=== PATIENT | male | born 1950 | race Caucasian/White ===

== ENCOUNTER 2016-08-03 19:32 | Inpatient (IN) | payer MEDICARE, OTHER ==
--- NOTE | 2016-08-03 19:56 | ED Physician Chart ---
Chief Complaint/HPI - Patient Information Date Seen:: 08/03/16 Time Seen:: 19:35 Chief Complaint:: agitation History of Present Illness:: 66-year-old male with acute, worsening, constant, moderate to severe, agitation 2 days. Has associated increased aggressive behavior towards staff and other patients. History of dementia limits history of present illness History provided by EMS and EMS run sheet Allergies:: Allergies Allergy/AdvReac Type Severity Reaction Status Date / Time MDX No Known Allergies - Nka Allergy Verified 01/01/14 12:43 [No Known Allergies - Nka] Historian:: EMS Review:: Nurse's Note Reviewed, EMS run form Reviewed, Transfer documents Reviewed Review of Systems - Review of Systems Other: Complete system review otherwise unremarkable except as noted in HPI. Past Medical History - Past Medical History Past Medical History: HTN, Asthma/COPD, PUD/GERD, Dementia Family History: None Social History: Non Smoker, No Alcohol, No Drug Use, Care Facility Psychiatricy History: Schizophrenia Medication: Reviewed Family Medical History - Family Member no family member as per patient History Unknown: Yes Ethnicity: Living Status: Unknown Hx Family Cancer: (unknown) Hx Family Coronary Artery Disease: (unknown) Hx Family Congestive Heart Failure: (unknown) Hx Family Hypertension: (unknown) Hx Family Stroke: (unknown) Hx Family Diabetes: (unknown) Hx Family Seizures: (unknown) Hx Family Dementia: (unknown) Hx Family AIDS: (unknown) Hx Family HIV: No Hx Family COPD: (unknown) Hx Family Hepatitis: (unknown) Hx Family Psychiatric Problems: (unknown) Hx Family Tuberculosis: (unknown) Physical Exam - Physical Examination Other:: INITIAL VITAL SIGNS: Reviewed by me GENERAL: Alert and interactive but argumentative and demented. No acute distress HEAD: Head is normocephalic and atraumatic EYES: EOMI. . No scleral icterus. No conjunctival injection ENT: Moist mucous membranes. NECK: Supple. No masses. Full range of motion RESPIRATORY: No tachypnea. Clear breath sounds bilaterally. No wheezing, rales, or rhonchi CV: Regular rate and rhythm. No murmurs, rubs, or gallops ABDOMEN: Soft, non-distended, non-tender. No guarding. No rebound. No masses. EXTREMITIES: No deformity. No cyanosis. No edema. SKIN: Warm and dry. No obvious rashes. NEUROLOGIC: Alert and oriented. Face is symmetric. Speech is normal. Moves all extremities equally. Motor and sensory distally intact. Labs/Radiology/EKG Results - Lab Results Results: Lab Results 08/03/16 08/03/16 Range/Units 20:34 20:34 WBC 6.9 D (4.8-10.8) Th/cmm RBC 4.53 (3.80-5.80) Mil/cmm Hgb 13.9 (12.6-17.4) gm/dL Hct 40.9 D (39.0-49.0) % MCV 90.2 (80-99) fl MCH 30.7 (27.0-31.0) pg MCHC Differential 34.1 (28.0-36.0) pg RDW 12.9 (11.5-20.0) % Plt Count 239 (150-400) Th/cmm MPV 6.8 fl Neutrophils % 61.6 (40.0-80.0) % Lymphocytes % 29.5 (20.0-50.0) % Monocytes % 6.6 (2.0-10.0) % Eosinophils % 1.5 (0.0-5.0) % Basophils % 0.8 (0.0-2.0) % PT 10.4 (9.5-11.5) SECONDS INR 1.00 (0.5-1.4) - EKG Interpretations Comments:: 12-lead EKG Interpretation by Mercy Corona MD: Normal Sinus Rhythm with ventricular rate of 85 beats per minute Normal axis Normal intervals No acute ST or T wave changes. No obvious STEMI ED Septic Shock - . Is Septic Shock (SBP<90, OR Lactate>4 mmol\L) present?: No Reassessment (Disposition) - Reassessment Reassessment:: Patient does have UTI. We have given oral Cipro 500 mg here in the ER. He can continue oral medications for the UTI was admitted to the geriatric psych unit. Patient medically cleared for admission to the geriatric psych unit Reassessment Condition:: Unchanged - Diagnosis Diagnosis:: Psychosis, NOS UTI, acute, without hematuria Hypertension Dementia - Patient Disposition Discharge/Transfer:: Acute Care w/in this hosp Admitted to:: [facility] Admitting Medical Physician:: Ej Curran Admitting Psych Physician:: Mary Diaz Time:: 21:06 Condition at Disposition:: Stable
[2016-08-03] MEDS ORDERED: Haloperidol Lactate 5 mg/mL 1mL Vial IM STA (19:57)
[2016-08-03] MEDS ORDERED: Haloperidol Lactate 5 mg/mL 1mL Vial ONE (19:58)
[2016-08-03 20:36] VITALS: BP 153/78
[2016-08-03 20:46] LABS: % BASOPHILS 0.8 % (0.0-2.0); % EOSINOPHILS 1.5 % (0.0-5.0); % LYMPHOCYTES 29.5 % (20.0-50.0); % MONOCYTES 6.6 % (2.0-10.0); % NEUTROPHILS 61.6 % (40.0-80.0); HEMOGLOBIN 13.9 gm/dL (12.6-17.4); MEAN CELL VOLUME 90.2 fl (80-99); MEAN CORPUSCULAR HEMOGLOBIN 30.7 pg (27.0-31.0); MEAN CORPUSCULAR HGB CONC 34.1 pg (28.0-36.0); MEAN PLATELET VOLUME 6.8 fl; NEUTROPHILE ABSOLUTE 4.2 Th/cmm (1.8-8.0); PLATELET COUNT 239 Th/cmm (150-400); RED BLOOD COUNT 4.53 Mil/cmm (3.80-5.80); RED CELL DISTRIBUTION WIDTH 12.9 % (11.5-20.0)
[2016-08-03 20:50] LABS: HEMATOCRIT 40.9 % (39.0-49.0); WHITE BLOOD COUNT 6.9 Th/cmm (4.8-10.8)
[2016-08-03 20:58] LABS: PROTHROMBIN TIME (TEST) 10.4 SECONDS (9.5-11.5)
[2016-08-03 21:02] LABS: ALB/GLOB RATIO 1.2 (1.0-1.8); ALKALINE PHOSPHATASE 72 U/L (34-104); ANION GAP 9.3 (7.0-16.0); BILIRUBIN,TOTAL 0.5 mg/dL (0.3-1.0); BUN - UREA NITROGEN 12 mg/dL (7-25); CALCIUM SERUM 9.1 mg/dL (8.6-10.3); CARBON DIOXIDE 26.5 mEq/L (21.0-31.0); CHLORIDE 104 mEq/L (98-107); CHOLESTEROL 159 mg/dL (<200); CREATININE - SERUM 0.4 mg/dL (0.7-1.3); GLUCOSE 98 mg/dL (70-105); POTASSIUM SERUM 3.8 mEq/L (3.5-5.1); SGOT 13 U/L (13-39); SGPT/ALT 6 U/L (7-52); SODIUM SERUM 136 mEq/L (136-145); TRIGLYCERIDES 103 mg/dL (<150)
[2016-08-03 22:54] LABS: URINE BILIRUBIN NEGATIVE (NEGATIVE); URINE BLOOD NEGATIVE (NEGATIVE); URINE COLOR YELLOW; URINE GLUCOSE (UA) NEGATIVE (NEGATIVE); URINE KETONE TRACE mg/dL (NEGATIVE); URINE PH 7.5; URINE PROTEIN NEGATIVE (NEGATIVE)
[2016-08-03 22:55] LABS: URINE RBC 0-2 /hpf (0-5)
[2016-08-03 22:56] LABS: URINE AMORPHOUS SEDIMENT MODERATE PHOSPHATES (NONE SEEN); URINE BACTERIA MODERATE /hpf (NONE SEEN); URINE EPITHELIAL CELLS FEW /lpf (FEW)
[2016-08-03] MEDS ORDERED: Magnesium Hydroxide (MOM) 30 mL UDC PO PRN (23:28)
[2016-08-03] MEDS ORDERED: Hydrocodone/APAP 10 mg/325 mg Tab PO PRN (23:32)
[2016-08-04] MEDS: Multivitamin Tab PO SCH (08:56)
--- NOTE | 2016-08-04 10:32 | Diagnostic Imaging Report ---
Portable chest x-ray HISTORY: Shortness of breath Compared with prior exam of November 03, 2014, there remains chronic elevation of left hemidiaphragm. No acute focal bony processes. Heart size difficult to assess. IMPRESSION: 1. No acute abnormalities
--- NOTE | 2016-08-04 20:58 | History & Physical ---
INTERNAL MEDICINE CONSULTATION INDICATION: The patient is a 66-year-old male. PAST MEDICAL HISTORY: Significant for fracture of the right tibia, hypertension, COPD, coronary artery disease, ____, gastritis, arthritis, osteoporosis, and dementia. SOCIAL HISTORY: No prior history of smoking or alcohol abuse. FAMILY HISTORY: Not delivered. REVIEW OF SYSTEMS: The patient has lower extremity pain, no vomiting, no diarrhea, and no melena or hematochezia. The patient is on multiple narcotics and subsequently has constipation. PHYSICAL EXAMINATION: GENERAL: An average male in no respiratory distress. VITAL SIGNS: Include a blood pressure 140/80, respiratory rate of 18. SKIN: Showed no obvious cellulitis. HEENT: Normal conjuctivae. NECK: Supple. LUNGS: Occasional rhonchi, occasional crepitation. No bronchial breathing. HEART: S1 and S2 present. ABDOMEN: Soft, minimal epigastric tenderness. Bowel sounds appear good. EXTREMITIES: Show arthritis. NEUROLOGIC: The patient has resting tremors. LABORATORY DATA: Include white count of 6.9, hemoglobin 13.9, hematocrit 40.9, and platelet count of 239,000. Sodium 136, potassium 3.8, chloride 104, bicarb 26.5, BUN 12, creatinine 0.4, and glucose of 98. MEDICAL DIAGNOSES: Include hypertension, chronic obstructive pulmonary disease, coronary artery disease, ____ gastritis, arthritis, osteoporosis, and history of fracture of the right tibia. MEDICATIONS: Include the patient is on Narvon, Tylenol, Maalox, and Ativan. Rest of medicines as per Dr. Diaz. Thank you Dr. Diaz for letting me see your patient. JOB# [id number]
[2016-08-05] MEDS: Multivitamin Tab PO SCH (10:06)
--- NOTE | 2016-08-06 02:24 | Progress Notes ---
SUBJECTIVE: The patient was seen, discussed with staff, chart reviewed. Remains anxious, guarded, still easily agitated and somewhat paranoid. The patient is keeping to himself; however, is taking his medications. Insight is poor, judgment remains impaired. ASSESSMENT: The patient is still in psychotic phase, highly agitated. PLAN: We will continue medication management. Continue supportive measures. Continue Seroquel 200 mg p.o. at bedtime. Change Trazodone to 50 mg p.o. at bedtime p.r.n. insomnia. JOB# [id number]
[2016-08-06] MEDS: Multivitamin Tab PO SCH (09:27)
[2016-08-06] MEDS: Maalox 30 mL Cup PO PRN (14:33)
[2016-08-06] MEDS: Hydrocodone/APAP 10 mg/325 mg Tab PO PRN (19:56)
--- NOTE | 2016-08-07 01:39 | Progress Notes ---
SUBJECTIVE: The patient was seen, discussed with staff, chart reviewed, still irritable, guarded and still paranoid. The patient, however, is taking his medications and his appetite is slowly improving. The patient was in a wheelchair in hallway. At times yelling at nursing staff for no apparent reason. ASSESSMENT: The patient is still in psychotic phase, still highly disorganized. PLAN: We will continue medication management. Continue supportive measures. Monitor closely. JOB# [id number]
--- NOTE | 2016-08-07 01:58 | Psychosocial Evaluation ---
CHIEF COMPLAINT: "Leave me alone." HISTORY OF PRESENT ILLNESS: The patient is a 66-year-old male with a history of chronic mental illness who was sent from his facility for increased agitation, anger outburst and becoming more restless. The patient has been verbally abusive to staff and at times is trying to hit staff. The patient has a history of mental illness and he was sent to the hospital from [facility] [place]. PAST PSYCHIATRIC HISTORY: Multiple hospitalizations, history of mental illness and the patient has schizoaffective disorder. PAST MEDICAL HISTORY: As per Dr. Curran. PSYCHOSOCIAL HISTORY: The patient resides at [facility] and he requires complete care. The patient is also apparently conserved and he has public guardian. MENTAL STATUS EXAMINATION: The patient was guarded, irritable and refused to talk. The patient's speech is loud at times. He is oriented to person, knew he was in the hospital and did not want to answer further questions. The patient is highly paranoid and agitated. PATIENT'S STRENGTHS: The patient is passively accepting treatment. PATIENT'S WEAKNESS: Lack of insight. ASSESSMENT: Schizoaffective disorder, psychotic phase. MEDICAL: As per medical history. PLAN: We will admit the patient for hospitalization. We will start individual and group therapy and assess psychopharmacological intervention. ESTIMATED LENGTH OF STAY: 7 days. CRITERIA FOR DISCHARGE: Improved condition. No agitation, no aggressive behavior and safe disposition, outpatient treatment plan. [facility]# [id number]
[2016-08-07] MEDS: Hydrocodone/APAP 10 mg/325 mg Tab PO PRN (04:10)
[2016-08-07] MEDS: Multivitamin Tab PO SCH ×2 (09:57→10:02)
--- NOTE | 2016-08-08 02:59 | Progress Notes ---
SUBJECTIVE: I met this patient, discussed with staff, chart reviewed. Still anxious and angry. Continues to have mood swings, irritability and remains unpredictable. The patient, however, is taking his medications, does not appear to have any side effects. His insight is still poor, judgment remains impaired. ASSESSMENT: The patient continues to require hospitalization. PLAN: We will continue Seroquel 200 mg p.o. at bedtime, Depakote 500 mg p.o. at bedtime and BuSpar 5 mg p.o. b.i.d. JOB# [id number]
[2016-08-08] MEDS: Hydrocodone/APAP 10 mg/325 mg Tab PO PRN ×2 (08:22→20:56)
[2016-08-08] MEDS: Multivitamin Tab PO SCH (08:23)
--- NOTE | 2016-08-09 04:31 | Progress Notes ---
SUBJECTIVE: The patient was seen, discussed with staff. Still irritable, anxious at times, some anger outburst, continues to have limited insight. The patient, however, is eating better and his sleep is fair. The patient has no sedation or EPS. Insight remains poor, judgment remains impaired. ASSESSMENT: The patient still in psychotic phase, still easily agitated. PLAN: We will continue Seroquel 200 mg p.o. at bedtime and Depakote 500 mg p.o. at bedtime. Buspirone was added. JOB# [id number]
[2016-08-09] MEDS: Multivitamin Tab PO SCH (09:14)
--- NOTE | 2016-08-10 06:33 | Progress Notes ---
SUBJECTIVE: The patient was seen, chart reviewed, discussed with staff. Still anxious, guarded, still paranoid, irritable, some anger outbursts, requires redirection by staff. The patient, however, is taking his medications. Appetite is fair. Sleep is fair. The patient's insight remains poor, judgment remains impaired. ASSESSMENT: The patient is still in psychotic phase and continues to have some anger outburst. PLAN: We will monitor closely. Continue supportive measures. Continue individual and group therapy. [facility]# [id number]
[2016-08-10] MEDS: Multivitamin Tab PO SCH (08:03)
[2016-08-10] MEDS: Hydrocodone/APAP 10 mg/325 mg Tab PO PRN (15:48)
--- NOTE | 2016-08-11 03:18 | Progress Notes ---
SUBJECTIVE: The patient was seen, discussed with staff. Continues to have paranoia and irritability, episodes of yelling, has been refusing care at times and refusing medications. His insight is poor. The patient has no insight into his mental illness and his judgment is impaired. ASSESSMENT: The patient continues to be paranoid, still in psychotic phase. PLAN: Continue hospitalization. The patient is conserved. Change Seroquel to Zyprexa to see if that helps improve compliance considering using injective medication given the affect that the patient is conserved. JOB# [id number]
[2016-08-11] MEDS: Multivitamin Tab PO SCH (09:04)
--- NOTE | 2016-08-12 05:00 | Progress Notes ---
SUBJECTIVE: The patient was seen, discussed with staff, chart reviewed. Remains anxious, guarded, still paranoid, irritable, easily agitated. Insight is still limited. Judgment remains impaired. The patient was started on Zyprexa to help improve compliance. The patient is conserved. The patient's insight is poor and judgment is impaired. ASSESSMENT: The patient continues to require hospitalization. He lacks ability to care for himself. PLAN: We will continue to monitor closely. Continue supportive measures. Continue Zyprexa 2.5 mg p.o. at bedtime. Consider increasing dose further more over the next 1-2 days. JOB# [id number]
[2016-08-12] MEDS: Multivitamin Tab PO SCH (12:28)
[2016-08-12] MEDS: Hydrocodone/APAP 10 mg/325 mg Tab PO PRN (14:45)
--- NOTE | 2016-08-13 02:49 | Progress Notes ---
SUBJECTIVE: I met this patient. He is still guarded, paranoid, irritable, remains unpredictable. Episodes of refusing care. The patient's thought process is fragmented and insight is poor. ASSESSMENT: The patient still in psychotic phase, still impulsive. PLAN: We will continue stabilization, encourage the patient to comply with medications and treatment recommendations. The patient is on Zyprexa. JOB# [id number]
[2016-08-13] MEDS: Multivitamin Tab PO SCH (08:52)
--- NOTE | 2016-08-13 20:01 | Progress Notes ---
PSYCHIATRIC PROGRESS NOTE TIME PATIENT SEEN: 10:45 a.m. SUBJECTIVE: Staff was spoken to. The patient is interviewed. Mood is noted to be anxious. The patient is getting easily frustrated and irritable. The patient has been refusing to comply with the medications. The patient has paranoid delusions, but impulsivity is a major concern. The patient is currently on the valproic acid 500 mg at bedtime and Zyprexa 2.5 mg at bedtime. The patient is able to tolerate the medications. No side effects of medications are noted. ASSESSMENT: The patient is still impulsive and psychotic. PLAN: To continue the patient with the current medications. I encouraged the patient to verbalize the concerns rather than to act out. [facility]# [id number]
[2016-08-13] MEDS: Hydrocodone/APAP 10 mg/325 mg Tab PO PRN (22:08)
[2016-08-14] MEDS: Multivitamin Tab PO SCH (10:07)
--- NOTE | 2016-08-14 18:25 | Progress Notes ---
PSYCHIATRIC PROGRESS NOTE TIME PATIENT SEEN: 10:00 a.m. SUBJECTIVE: Staff was spoken to. The patient is interviewed. Mood is noted to be irritable. Affect is constricted. The patient is still having acute mood swings. The patient is reluctant to comply with the medication today. No side effects to the medications are noted. The patient is currently on 50 mg of trazodone on a p.r.n. basis and BuSpar 5 mg twice a day and Depakote 500 mg at bedtime. Even with all the medications, the patient is still lose temper. ASSESSMENT: The patient is still impulsive. PLAN: To continue the patient with the current medications and follow up with the supportive therapy. JOB# [id number]
[2016-08-14] MEDS: Hydrocodone/APAP 10 mg/325 mg Tab PO PRN (21:53)
[2016-08-15] MEDS: Maalox 30 mL Cup PO PRN (00:12)
[2016-08-15] MEDS: Multivitamin Tab PO SCH (10:07)
[2016-08-15] MEDS: Hydrocodone/APAP 10 mg/325 mg Tab PO PRN (15:14)
--- NOTE | 2016-08-15 22:21 | Progress Notes ---
PSYCHIATRIC PROGRESS NOTE TIME PATIENT SEEN: 7:00 a.m. SUBJECTIVE: Staff was spoken to. The patient is interviewed. Mood is noted to be irritable. Affect is constricted. Insight and judgment at this time are noted to be very much impaired. Impulse control seems to be improving. The patient tends to scream and yell, but not that aggressive compared to the previous hospitalizations. No side effects to the medications are noted. The patient is currently on trazodone, buspirone and Depakote and has been able to tolerate the medication. ASSESSMENT: The patient is stabilizing. PLAN: To continue the patient with the current medications. I encouraged the patient to verbalize the concerns rather than to act out. The patient is going to be closely monitored if the patient is going to be doing fairly well. Possibly, the patient is going to be discharged tomorrow. JOB# [id number]
[2016-08-16] MEDS: Multivitamin Tab PO SCH (09:49)
[2016-08-16] MEDS: Maalox 30 mL Cup PO PRN (18:53)
--- NOTE | 2016-08-16 20:03 | Progress Notes ---
PSYCHIATRIC PROGRESS NOTE TIME PATIENT SEEN: 10:00 a.m. SUBJECTIVE: Staff was spoken to. The patient is interviewed. Mood is noted to be irritable. Affect is constricted. Insight and judgment at this time are noted to be still impaired. Impulse control is noted to be improving. No side effects to the medications are noted. Because of the patient's past behavior of impulsivity including things that the placement where he was at, is not willing to take him back and hence it is decided to work with the community case manager to look for a different place. ASSESSMENT: The patient is still impulsive and waiting placement. PLAN: To continue the patient with the supportive therapy and follow up. JOB# [id number]
[2016-08-17] MEDS: Multivitamin Tab PO SCH (09:07)
[2016-08-17] MEDS: Hydrocodone/APAP 10 mg/325 mg Tab PO PRN (17:52)
--- NOTE | 2016-08-18 02:48 | Progress Notes ---
TIME PATIENT SEEN: 5:00 p.m. SUBJECTIVE: Staff was spoken to. The patient is interviewed. Mood is ____. Affect is constricted. Insight and judgment are noted to be still impaired. Impulse control is noted to be poor. The patient has been having difficult time to cope with the stress. The patient's aggressive behavior is being closely monitored at this time. The patient is redirected to verbalize his concerns rather than throw things around. The patient is not accepted at the placement and the shelter case manager has been trying to look for placement for this patient. JOB# [id number]
[2016-08-18] MEDS: Multivitamin Tab PO SCH (09:02)
--- NOTE | 2016-08-18 23:06 | Progress Notes ---
PSYCHIATRIC PROGRESS NOTE TIME PATIENT SEEN: 10:00 a.m. SUBJECTIVE: Staff was spoken to. The patient is interviewed. Mood is noted to be irritable. Affect is constricted. Insight and judgment are noted to be still impaired. Impulse control seems to be improving. No side effects to the medications are noted. The patient has been having difficult time to get his ____ across, but he very easily gets into irritability and starts ____. The patient has been so far compliant with the medication. The patient has been on 500 mg of the Depakote at bedtime along with olanzapine 2.5 mg. The patient is also on BuSpar and trazodone on a p.r.n. basis. The patient has been able to tolerate the medications, but the major problem at this time seems to be placement and case therapist is working with the placement issues with this patient. So far, no placement is available. ASSESSMENT: The patient's impulsivity is coming under control. PLAN: To continue the patient with supportive therapy and followup. JOB# [id number]
[2016-08-19] MEDS: Multivitamin Tab PO SCH (09:00)
[2016-08-19] MEDS: Hydrocodone/APAP 10 mg/325 mg Tab PO PRN (21:27)
[2016-08-20] MEDS: Multivitamin Tab PO SCH ×2 (09:15→09:23)
--- NOTE | 2016-08-20 21:45 | Progress Notes ---
PSYCHIATRIC PROGRESS NOTE TIME PATIENT SEEN: 10:30 a.m. SUBJECTIVE: Staff was spoken to. The patient is interviewed. Mood is noted to be depressed. Affect is constricted. Coping skills are noted to be poor. Sleep and appetite are also noted to be very poor. The patient, however, has no place to return to and the previous placement is not willing to accept the patient back. ASSESSMENT: The patient is still awaiting placement. PLAN: To continue the patient with supportive therapy and followup. [facility]# [id number]
[2016-08-21] MEDS: Multivitamin Tab PO SCH ×2 (09:22→09:37)
--- NOTE | 2016-08-21 22:37 | Progress Notes ---
PSYCHIATRIC PROGRESS NOTE TIME PATIENT SEEN: 4:45 p.m. SUBJECTIVE: Staff was spoken to. The patient is interviewed. Mood is noted to be dysphoric. The patient has been reluctant to take the medications. The patient has been testing the limits. No side effects to the medications are noted. The patient has not been accepted at any place and we are waiting for placement for this patient. ASSESSMENT: The patient is still psychotic. PLAN: To continue the patient with supportive therapy and follow up. JOB# [id number]
[2016-08-22] MEDS: Multivitamin Tab PO SCH (09:02)
--- NOTE | 2016-08-22 23:09 | Progress Notes ---
TIME PATIENT SEEN: 4:00 p.m. SUBJECTIVE: Staff was spoken to. The patient is interviewed. Mood is noted to be irritable. Affect is constricted. The patient is still noncompliant with the medications and has been testing the limits. No side effects to the medications are noted. The patient's coping skills are noted to be still poor. ASSESSMENT: The patient is still impulsive and awaiting placement. PLAN: To continue the patient with the supportive therapy. I encouraged the patient to verbalize the concerns rather than to act out. JOB# [id number]
[2016-08-23] MEDS: Multivitamin Tab PO SCH ×2 (08:28→10:00)
--- NOTE | 2016-08-24 01:06 | Progress Notes ---
TIME PATIENT SEEN: 11:45 a.m. SUBJECTIVE: Staff was spoken to. The patient is interviewed. Mood is noted to be irritable. The patient is stating that he cannot be in here, he needs to be out. The patient's coping skills are noted to be very poor at this time. Sleep and appetite are also noted to be very poor. No side effects to the medications are noted. The patient is awaiting placement. The patient is reported to have been known to lot of facilities, no one is willing to come forward to accept the patient. senior sales operations manager has been diligently trying to look for placement for this patient. JOB# [id number]
[2016-08-24] MEDS: Multivitamin Tab PO SCH (09:03)
[2016-08-24] MEDS: Maalox 30 mL Cup PO PRN (10:45)
--- NOTE | 2016-08-25 00:14 | Progress Notes ---
TIME PATIENT SEEN: 9 a.m. SUBJECTIVE: Staff was spoken to. The patient is interviewed. Mood is noted to be irritable. Affect is constricted. Insight and judgment is still impaired. Impulse control seems to be poor. The patient is still awaiting placement. The patient has been ____tested in the limits, but could be redirectable. No side effects to the medications are noted. ASSESSMENT: The patient is stabilizing, awaiting placement. PLAN: To continue the patient with supportive therapy and follow up. JOB# [id number]
[2016-08-25] MEDS: Multivitamin Tab PO SCH (09:56)
[2016-08-25] MEDS: Maalox 30 mL Cup PO PRN (12:51)
--- NOTE | 2016-08-25 18:14 | Progress Notes ---
TIME PATIENT SEEN: 07:00 a.m. SUBJECTIVE: Staff was spoken to. The patient is interviewed. Mood is noted to be irritable. Affect is constricted. The patient is stating that he is sick of being in here, but so far no placement has been available. The patient's pillowcase maker has been trying to help the patient with the placement, but ____ is willing to accept the patient so far. They have been ____ to several different places. ASSESSMENT: The patient still continues to be impulsive and paranoid. PLAN: To continue the patient with the current medications. We encouraged the patient to verbalize the concerns rather than to act out. JOB# [id number]
[2016-08-26] MEDS: Multivitamin Tab PO SCH (09:50)
--- NOTE | 2016-08-26 12:28 | Progress Notes ---
TIME PATIENT SEEN: 7:00 a.m. SUBJECTIVE: Staff was spoken to. The patient is interviewed. Mood is noted to be irritable. Affect is constricted. Insight and judgment are noted to be still impaired. Impulse control seems to be poor. Coping skills are noted to be very poor. The patient has been having difficult time to cope with the stress. The patient has been refusing to comply with the treatment. The patient is stating that he is fine. He does not need to be on any medications. No side effects to the medications are noted at this time. ASSESSMENT: The patient is still impulsive and is awaiting placement. PLAN: To continue the patient with the supportive therapy. I encouraged the patient to verbalize the concerns rather than to act out. JOB# [id number]
[2016-08-27] MEDS: Multivitamin Tab PO SCH ×2 (08:53→08:56)
[2016-08-28] MEDS: Multivitamin Tab PO SCH (08:51)
[2016-08-28] MEDS ORDERED: Haloperidol Lactate 5 mg/mL 1mL Vial IM PRN (10:02)
--- NOTE | 2016-08-28 12:53 | Progress Notes ---
PSYCHIATRIC PROGRESS NOTE TIME PATIENT SEEN: 7:00 a.m. SUBJECTIVE: Staff was spoken to. The patient is interviewed. Mood is noted to be irritable. Affect is constricted. Insight and judgment are noted to be impaired. Impulse control seems to be poor. The patient is screaming and yelling and refuses to take any of the medications. Added to that one, the patient has no place to return to. executive sales manager has been trying to secure placement for him. ASSESSMENT: The patient is still impulsive. PLAN: To continue the patient with supportive therapy. Encourage the patient to verbalize the concern. If the patient continues to be this way, he is going to be given the Haldol, Ativan as a p.r.n. basis, and the patient is followed up with the supportive therapy. JOB# [id number]
--- NOTE | 2016-09-09 19:22 | Discharge Summary ---
IDENTIFYING DATA: The patient is a 66-year-old male with chronic mental illness and resident of a [facility] facility. JUSTIFICATION OF HOSPITALIZATION: The patient is admitted here for acute psychosis. CHIEF COMPLAINT: "I don't care. I do not need the medications." HISTORY OF PRESENT ILLNESS: This is one of multiple psychiatric hospitalizations for this patient who has been diagnosed to have schizoaffective disorder. Please refer to the 08/06/2016, dictation done by Dr. Lizarraga who was ____ for me. Physical examination was done by Dr. Curran and is noted to be significant for hypertension, COPD, gastritis, coronary artery disease and history of fracture of the right tibia. HOSPITAL COURSE AND RESPONSE TO TREATMENT: The patient has been very irritable, angry, screaming and yelling from the ____. Blood work has been reviewed by Dr. Curran. The patient has been reluctant to comply with the medications. The patient has been continued on Depakote 500 mg at bedtime, trazodone 50 mg at bedtime p.r.n. The patient has been given the buspirone 5 mg twice a day and olanzapine has been given 2.5 mg at bedtime. The patient has been testing the limits until the last minute and the replacement did not want to take him and the manager case has to struggle to get the patient to [place] to be followed up by ____, on an outpatient basis. MENTAL STATUS EXAMINATION: At the time of discharge, the patient's mood is noted to be less irritable. Affect is appropriate. Not suicidal or homicidal. Coping skills are noted to be improving. No side effects to the medications are noted. DIAGNOSES AT THE TIME OF DISCHARGE: Schizoaffective disorder, psychotic. AFTERCARE PLAN: The patient is discharged to [facility] to be followed up at ____ [facility]. PROGNOSIS: At the time of discharge noted to be guarded. JOB# [id number]
== END 2016-08-28 16:55 | DRG 885 ==
LOC: ER 19:32 → GERO 23:02
PROVIDERS: ADMIT Psychiatry & Neurology Psychiatry; ATTEND Psychiatry & Neurology Psychiatry
DX: F25.9 Schizoaffective disorder, unspecified (principal); F03.90 Unspecified dementia, unspecified severity, without behavioral disturbance, psychotic disturbance, mood disturbance, and anxiety; J44.9 Chronic obstructive pulmonary disease, unspecified; N39.0 Urinary tract infection, site not specified; I10 Essential (primary) hypertension; K21.9 Gastro-esophageal reflux disease without esophagitis; I25.10 Atherosclerotic heart disease of native coronary artery without angina pectoris; M19.90 Unspecified osteoarthritis, unspecified site; M81.0 Age-related osteoporosis without current pathological fracture; K29.70 Gastritis, unspecified, without bleeding
CPT/HCPCS: 36415-UA; 71010-TC; 80053-TC; 80061-TC; 81001-TC; 84443-TC; 84484-TC; 85025-TC; 85610-TC; 86592-TC; 87086-90; 93005; G0410; J1200; J1630; J2060; J7040; Z7610

== ENCOUNTER 2016-12-10 22:55 | Inpatient (IN) | payer MEDICARE, OTHER ==
[2016-12-10] MEDS ORDERED: Haloperidol Lactate 5 mg/mL 1mL Vial IM STA (23:24)
[2016-12-10] MEDS ORDERED: Haloperidol Lactate 5 mg/mL 1mL Vial ONE (23:28)
--- NOTE | 2016-12-10 23:46 | ED Physician Chart ---
Chief Complaint/HPI - Patient Information Date Seen:: 12/10/16 Time Seen:: 23:10 Chief Complaint:: COMBATIVE History of Present Illness:: THIS IS A 66 YO CHRONICALLY ILL PARAPLEGIC SENT HERE FOR A PSYCH EVALUATION AND TREATMENT. HE HAS BEEN VERY UNCOOPERATIVE, FIGHTING AND KICKING. HE HAS BEEN HERE SEVERAL TIMES IN THE PAST. HE HAS COPD, BIPOLAR DISEASE AND BEHAVIORAL PROBLEMS. Allergies:: Allergies Allergy/AdvReac Type Severity Reaction Status Date / Time No Known Drug Allergies Allergy Verified 12/10/16 23:26 Vitals:: Vital Signs - 8 hr 12/10/16 23:00 Temp 97.8 F RR 18 Historian:: EMS, Medical Records Review:: Nurse's Note Reviewed, Old Chart Reviewed, Transfer documents Reviewed Review of Systems - Review of Systems General/Constitutional: No fever, No chills, No weight loss, No weakness, No diaphoresis, No edema, No loss of appetite Skin: No skin lesions, No rash, No bruising Head: No headache, No light-headedness Eyes: No loss of vision, No pain, No diplopia ENT: No earache, No nasal drainage, No sore throat, No tinnitus Neck: No neck pain, No swelling, No thyromegaly, No stiffness, No mass noted Cardio Vascular: No chest pain, No palpitations, No PND, No orthopnea, No edema Pulmonary: No SOB, No cough, No sputum, No wheezing GI: No nausea, No vomiting, No diarrhea, No pain, No melena, No hematochezia, No constipation, No hematemesis G/U: No dysuria, No frequency, No hematuria Musculoskeletal: No bone or joint pain, No back pain, No muscle pain Endocrine: No polyuria, No polydipsia Psychiatric: Prior psych history, No depression, No anxiety, No suicidal ideation, Homicidal ideation Hematopoietic: No bruising, No lymphadenopathy Allergic/Immuno: No urticaria, No angioedema Neurological: No syncope, No focal symptoms, No weakness, No paresthesia, No headache, No seizure, No dizziness, No confusion, No vertigo, Other (LOWER EXTREMITIES SPASTIC PARALYSIS.) Past Medical History - Past Medical History Obtainable: Yes Past Medical History: Asthma/COPD, CVA/TIA, Arthritis, Dementia Family History: None Social History: Non Smoker, No Alcohol, No Drug Use, Care Facility Surgical History: None Psychiatricy History: Schizophrenia, Bipolar, Dementia Medication: Reviewed Family Medical History - Family Member no family member as per patient History Unknown: Yes Ethnicity: Unknown Living Status: Unknown Hx Family Cancer: No Hx Family Coronary Artery Disease: No Hx Family Congestive Heart Failure: No Hx Family Hypertension: No Hx Family Stroke: No Hx Family Diabetes: No Hx Family Seizures: No Hx Family Dementia: No Hx Family AIDS: No Hx Family HIV: No Hx Family COPD: No Hx Family Hepatitis: No Hx Family Psychiatric Problems: No Hx Family Tuberculosis: No Physical Exam - Physical Examination General/Constitutional: Awake, Well-developed, well-nourished, Alert, No distress, GCS 15, Non-toxic appearing, Ambulatory Other Gen/Cons comments:: SINGING AT THE NURSES AND ER TECHS, VERY UNCOOPERATIVE. Head: Atraumatic Eyes: Lids, conjuctiva normal, PERRL, EOMI Skin: Nl inspection, No rash, No skin lesions, No ecchymosis, Well hydrated, No lymphadenopathy ENMT: External ears, nose nl, Nasal exam nl, Lips, teeth, gums nl Neck: Nontender, Full ROM w/o pain, No JVD, No nuchal rigidity, No bruit, No mass, No stridor Respiratory: Nl effort/Exclusion, Clear to Auscultation, No Wheeze/Rhonchi/Rales Cardio Vascular: RRR, No murmur, gallop, rubs, NL S1 S2 GI: No tenderness/rebounding/guarding, No organomegaly, No hernia, Normal BS's, Nondistended, No mass/bruits, No McBurney tenderness : No CVA tenderness Extremities: No tenderness or effusion, Full ROM, normal strength in all extremities, No edema, Normal digits & nails Neuro/Psych: Alert/oriented, DTR's symmetric, Normal sensory exam, Normal motor strength, Judgement/insight normal, Mood normal, Normal gait, No focal deficits Misc: normal gait, Normal back, No paraspinal tenderness Labs/Radiology/EKG Results - Lab Results Results: Abnormal Lab Results 12/11/16 12/11/16 12/11/16 00:10 00:10 00:10 WBC 8.1 RBC 4.58 Hgb 13.7 Hct 41.8 MCV 91.2 MCH 29.9 MCHC Differential 32.8 RDW 13.0 Plt Count 272 MPV 6.5 Neutrophils % 58.5 Lymphocytes % 27.6 Monocytes % 8.4 Eosinophils % 1.6 Basophils % 3.9 H PT 9.9 INR 0.95 PTT (Actin FS) 24.7 L Sodium 129 L Potassium 4.3 Chloride 99 Carbon Dioxide 29.2 Anion Gap 5.1 L BUN 12 Creatinine 0.4 L Est GFR ( Amer) > 60.0 Est GFR (Non-Af Amer) > 60.0 BUN/Creatinine Ratio 30.0 Glucose 97 Calcium 9.1 Total Bilirubin 0.5 AST 15 ALT 10 Alkaline Phosphatase 215 H Troponin I Total Protein 6.8 Albumin 3.9 L Globulin 2.9 Albumin/Globulin Ratio 1.3 Triglycerides 84 Cholesterol 174 LDL Cholesterol Direct 101 HDL Cholesterol 61 12/11/16 00:10 WBC RBC Hgb Hct MCV MCH MCHC Differential RDW Plt Count MPV Neutrophils % Lymphocytes % Monocytes % Eosinophils % Basophils % PT INR PTT (Actin FS) Sodium Potassium Chloride Carbon Dioxide Anion Gap BUN Creatinine Est GFR ( Amer) Est GFR (Non-Af Amer) BUN/Creatinine Ratio Glucose Calcium Total Bilirubin AST ALT Alkaline Phosphatase Troponin I < 0.01 L Total Protein Albumin Globulin Albumin/Globulin Ratio Triglycerides Cholesterol LDL Cholesterol Direct HDL Cholesterol - Radiology Results Results: CHEST X-RAY = LEFT SIDE OF DIAPHRAM IS ELEVATED. - EKG Interpretations EKG Time:: 00:18 Rate & Rhythm: RATE=73 [place]: RIGHT AXIS ED Septic Shock - . Is Septic Shock (SBP<90, OR Lactate>4 mmol\L) present?: No - <6hrs of presentation: Vital Signs: Vital Signs - 8 hr 12/10/16 23:00 Temp 97.8 F RR 18 Reassessment (Disposition) - Reassessment Reassessment Condition:: Unchanged - Diagnosis Diagnosis:: PSYCHOSIS - Patient Disposition Discharge/Transfer:: Acute Care w/in this hosp Admitting Medical Physician:: Ej Curran Admitting Psych Physician:: Mary Diaz Condition at Disposition:: Unchanged ED Discharge Plan - Patient Disposition Admit/Discharge/Transfer: Acute Care w/in this hosp Condition at Disposition: Improved
[2016-12-11 00:25] LABS: % BASOPHILS 3.9 % (0.0-2.0); % EOSINOPHILS 1.6 % (0.0-5.0); % LYMPHOCYTES 27.6 % (20.0-50.0); % MONOCYTES 8.4 % (2.0-10.0); % NEUTROPHILS 58.5 % (40.0-80.0); HEMATOCRIT 41.8 % (39.0-49.0); HEMOGLOBIN 13.7 gm/dL (12.6-17.4); MEAN CELL VOLUME 91.2 fl (80-99); MEAN CORPUSCULAR HEMOGLOBIN 29.9 pg (27.0-31.0); MEAN CORPUSCULAR HGB CONC 32.8 pg (28.0-36.0); MEAN PLATELET VOLUME 6.5 fl; NEUTROPHILE ABSOLUTE 4.8 Th/cmm (1.8-8.0); PLATELET COUNT 272 Th/cmm (150-400); RED BLOOD COUNT 4.58 Mil/cmm (3.80-5.80); WHITE BLOOD COUNT 8.1 Th/cmm (4.8-10.8)
[2016-12-11 00:39] LABS: INR 0.95 (0.5-1.4); PROTHROMBIN TIME (TEST) 9.9 SECONDS (9.5-11.5)
[2016-12-11 00:41] LABS: ALB/GLOB RATIO 1.3 (1.0-1.8); ALKALINE PHOSPHATASE 215 U/L (34-104); ANION GAP 5.1 (7.0-16.0); BILIRUBIN,TOTAL 0.5 mg/dL (0.3-1.0); BUN - UREA NITROGEN 12 mg/dL (7-25); CALCIUM SERUM 9.1 mg/dL (8.6-10.3); CARBON DIOXIDE 29.2 mEq/L (21.0-31.0); CHLORIDE 99 mEq/L (98-107); CHOLESTEROL 174 mg/dL (<200); CREATININE - SERUM 0.4 mg/dL (0.7-1.3); GLUCOSE 97 mg/dL (70-105); POTASSIUM SERUM 4.3 mEq/L (3.5-5.1); SGOT 15 U/L (13-39); SGPT/ALT 10 U/L (7-52); SODIUM SERUM 129 mEq/L (136-145); TRIGLYCERIDES 84 mg/dL (<150)
[2016-12-11 04:17] VITALS: BP 146/86
--- NOTE | 2016-12-11 11:03 | Psych History & Physical ---
[facility] History & Physical - Date of Admission Date of Admission: 12/11/16 - Identifying Data Identifying Data: Patient is a 66-year-old male [facility] information is obtained by direct interviewing the patient as well as reviewing the admission papers and is relabile - Chief Complaint Chief Complaint: I don't care I do not know why they help bring me here" Informant: Caregiver, Patient - History of Present Illness History of Present Illness: This is one of multiple psychiatric hospitalizations for this patient who has been diagnosed to have psychosis and has been noncompliant with the medications. Patient is reported to have been getting agitated and trying to hit the staff members patient has been speaking to medications's sleep and appetite The hospitalization are reported to be poor patient was tried in the past on Risperdal and Seroquel and Depakote but patient has not been willing to comply with the treatment at this time and tried to interview the patient patient is pulling the covers on and is not willing to give any information. Patient is screaming and yelling at the staff members and he has been becoming difficult to maintain the patient's - Psychiatric Evaluation Psychiatric Evaluation: See notes below. Psych General Appearance: Older than stated age Psych Behavior: Alert, Uncooperative Psych Speech: Normal in Rate and amount, Loud Psych Mood: Angry, Frustrated, Hostile, Irritable Psych Affect: Constricted, Inappropriate, Increased Intensity Psych Thought Process: Flight of Ideas, Goal Directed Psych Cognition: Grossly Intact Psych Insight: Impaired Psych Judgement: Impaired - Past Medical History Past Medical History: As per PCP. Psych: Bipolar Current Medications: Current Medications Acetaminophen (Tylenol) 650 mg PO Q4HR PRN PRN Reason: Mild Pain / Temp above 100 Stop: 02/09/17 04:29 Allergies/Adverse Reactions: Allergies Allergy/AdvReac Type Severity Reaction Status Date / Time No Known Drug Allergies Allergy Verified 12/10/16 23:26 - ROS Psychological ROS: Concentration difficulty, Hostility, Irritability - Physical Examination Physical Exam: As per malu. - Vitals and I&O Vitals and I&O: Vital Signs Temp 97.3 F 12/11/16 06:36 Pulse 67 12/11/16 06:36 Resp 18 12/11/16 06:36 BP 126/77 12/11/16 06:36 Pulse Ox 96 12/11/16 06:36 Intake & Output 12/10/16 12/11/16 12/11/16 18:59 06:59 18:59 Other: # Voids 2 - Impressions Impressions: Psychosis Nos [place] I: Psychosis Unspecified. [place] II: none [place] III: As per Dr. Reed - Treatment/Plan Patient Problems: All Active Problems Combative behavior (Acute) R46.89 Depression (Acute) F32.9 Diabetes (Acute) E11.9 HTN (hypertension) (Acute) I10 Mental health problem (Acute) F48.9 Psychosis (Acute) F29 Treatment/Plan: As per the orders.
--- NOTE | 2016-12-11 13:15 | Diagnostic Imaging Report ---
Portable chest x-ray HISTORY: Shortness of breath The exam is compared with the prior study of August 03, 2016. There remains marked elevation of the left hemidiaphragm. No focal pulmonary processes. Heart size difficult to assess, but appears enlarged. Atherosclerotic calcification seen in the aorta. IMPRESSION: 1. No change from August 03, 2016 2. Chronic elevation of the left hemidiaphragm 3. Probable cardiomegaly along with atherosclerotic vascular changes
[2016-12-11] MEDS ORDERED: Magnesium Hydroxide (MOM) 30 mL UDC PO PRN (13:35)
--- NOTE | 2016-12-11 13:42 | History and Physical ---
History of Present Illness - HPI Chief Complaint: agitation HPI: THIS IS 66 YEAR OLD MALE WHO IS A RESIDENT OF [facility] WHO IS ADMITTED TO THE [facility] FOR AGITATION. Vital Signs: Last Vital Signs Temp 97.3 F 12/11/16 06:36 Pulse 67 12/11/16 06:36 Resp 18 12/11/16 06:36 BP 126/77 12/11/16 06:36 Pulse Ox 96 12/11/16 06:36 Past Medical History Pulmonary: Report: COPD Other History: DEMENTIA INSOMNIA OA GASTRITIS SCHIZOPHRENIA AHD CAD HTN - Past Surgical History Past Surgical History: No pertinent Hx Family Medical History - Family Member no family member as per patient History Unknown: Yes (NONCONTRIBUTORY) Ethnicity: Unknown Living Status: Unknown Hx Family Cancer: (Unknown) Hx Family Coronary Artery Disease: (Unknown) Hx Family Congestive Heart Failure: (Unknown) Hx Family Hypertension: (Unknown) Hx Family Stroke: (Unknown) Hx Family Diabetes: (Unknown) Hx Family Seizures: (Unknown) Hx Family Dementia: (Unknown) Hx Family AIDS: (Unknown) Hx Family HIV: No Hx Family COPD: (Unknown) Hx Family Hepatitis: (Unknown) Hx Family Psychiatric Problems: (Unknown) Hx Family Tuberculosis: (Unknown) Social History Smoke: No Alcohol: None Drugs: None Lives: [facility] Maintenance Health Maintenance: Influenza Vaccine - Medications Home Medications: Home Medication Medication Instructions Recorded Type Acetaminophen [Tylenol] 650 mg PO Q4HR PRN tab 11/05/16 Rx Al Hyd/Mg Hyd/Simethicone [Maalox] 30 ml PO Q4HR PRN udc 11/05/16 Rx Bisacodyl [Dulcolax 10 Mg Supp] 10 mg RC DAILY PRN sup 11/05/16 Rx Lorazepam [Ativan] 0.5 mg PO Q6HR PRN tab 11/05/16 Rx Multivitamin w/ Minerals 1 tab PO DAILY tab 11/05/16 Rx [Theragran M] Zolpidem Tartrate [Ambien] 5 mg PO HS PRN tab 11/05/16 Rx Dextromethorphan/Quinidine 1 cap PO Q12HR 12/11/16 History [Nuedexta 20mg-10mg] Docusate Sodium [Colace] 100 mg PO DAILY 12/11/16 History Magnesium Hydroxide [Milk of 30 ml PO DAILY PRN 12/11/16 History Magnesia] Melatonin 2 tab PO HS 12/11/16 History - Allergies Allergies/Adverse Reactions: Allergies Allergy/AdvReac Type Severity Reaction Status Date / Time No Known Drug Allergies Allergy Verified 12/10/16 23:26 Review of Systems - Review of Systems Constitutional: Denies: Fever, Chills Eyes: Denies: Pain, Vision Change ENT: Denies: Ear Pain, Ear Discharge, Nose Pain Respiratory: Report: No Significant Cardiovascular: Report: No Significant Gastrointestinal: Report: No Significant Genitourinary: Report: No Significant Musculoskeletal: Report: No Significant Skin: Report: No Significant Neurological: Report: No Significant Physical Exam - Physical Exam HEENT: Report: Ears Nose Throat within normal limits Neck: Report: Within normal limits Cardiovascular Systems: Report: +s1/s2 noted, Regular, Rate and Rhythm, no murmurs noted Respiratory: Report: Breath Sounds are within normal limits Abdomen: Report: Non-tender to palpation, Bowel Sounds are within normal limits Extremities: Report: Non-tender to palpation. Skin: Report: Color of skin is within normal limits Neuro/Psych: Report: CN II-XII intact - Lab Results All Lab Results last 24 hours: Laboratory Last Values WBC 8.1 Th/cmm (4.8-10.8) 12/11/16 00:10 RBC 4.58 Mil/cmm (3.80-5.80) 12/11/16 00:10 Hgb 13.7 gm/dL (12.6-17.4) 12/11/16 00:10 Hct 41.8 % (39.0-49.0) 12/11/16 00:10 MCV 91.2 fl (80-99) 12/11/16 00:10 MCH 29.9 pg (27.0-31.0) 12/11/16 00:10 MCHC Differential 32.8 pg (28.0-36.0) 12/11/16 00:10 RDW 13.0 % (11.5-20.0) 12/11/16 00:10 Plt Count 272 Th/cmm (150-400) 12/11/16 00:10 MPV 6.5 fl 12/11/16 00:10 Neutrophils % 58.5 % (40.0-80.0) 12/11/16 00:10 Lymphocytes % 27.6 % (20.0-50.0) 12/11/16 00:10 Monocytes % 8.4 % (2.0-10.0) 12/11/16 00:10 Eosinophils % 1.6 % (0.0-5.0) 12/11/16 00:10 Basophils % 3.9 % (0.0-2.0) H 12/11/16 00:10 PT 9.9 SECONDS (9.5-11.5) 12/11/16 00:10 INR 0.95 (0.5-1.4) 12/11/16 00:10 PTT (Actin FS) 24.7 SECONDS (26.0-38.0) L 12/11/16 00:10 Sodium 129 mEq/L (136-145) L 12/11/16 00:10 Potassium 4.3 mEq/L (3.5-5.1) 12/11/16 00:10 Chloride 99 mEq/L (98-107) 12/11/16 00:10 Carbon Dioxide 29.2 mEq/L (21.0-31.0) 12/11/16 00:10 Anion Gap 5.1 (7.0-16.0) L 12/11/16 00:10 BUN 12 mg/dL (7-25) 12/11/16 00:10 Creatinine 0.4 mg/dL (0.7-1.3) L 12/11/16 00:10 Est GFR ( Amer) > 60.0 ml/min (>90) 12/11/16 00:10 Est GFR (Non-Af Amer) > 60.0 ml/min 12/11/16 00:10 BUN/Creatinine Ratio 30.0 12/11/16 00:10 Glucose 97 mg/dL (70-105) 12/11/16 00:10 Calcium 9.1 mg/dL (8.6-10.3) 12/11/16 00:10 Total Bilirubin 0.5 mg/dL (0.3-1.0) 12/11/16 00:10 AST 15 U/L (13-39) 12/11/16 00:10 ALT 10 U/L (7-52) 12/11/16 00:10 Alkaline Phosphatase 215 U/L (34-104) H 12/11/16 00:10 Troponin I < 0.01 ng/mL (0.01-0.05) L 12/11/16 00:10 Total Protein 6.8 gm/dL (6.0-8.3) 12/11/16 00:10 Albumin 3.9 gm/dL (4.2-5.5) L 12/11/16 00:10 Globulin 2.9 gm/dL 12/11/16 00:10 Albumin/Globulin Ratio 1.3 (1.0-1.8) 12/11/16 00:10 Triglycerides 84 mg/dL (<150) 12/11/16 00:10 Cholesterol 174 mg/dL (<200) 12/11/16 00:10 LDL Cholesterol Direct 101 mg/dL (75-193) 12/11/16 00:10 HDL Cholesterol 61 mg/dL (23-92) 12/11/16 00:10 TSH 0.85 uIU/ml (0.34-5.60) 12/11/16 00:15 - Assessment Assessment: DEMENTIA INSOMNIA OA GASTRITIS SCHIZOPHRENIA AHD CAD HTN - Plan Plan: FALL PRECAUTIONS MONITOR BP WILL MONITOR PATIENT CLOSELY.
[2016-12-11] MEDS: Dextromethorphan/Quinidine 20mg/10mg Cap PO SCH (20:25)
[2016-12-11] MEDS ORDERED: MELATONIN PO SCH (21:00)
[2016-12-12] MEDS: Multivitamin w/ Minerals Tab PO SCH (08:30)
[2016-12-12] MEDS: Dextromethorphan/Quinidine 20mg/10mg Cap PO SCH ×2 (08:30→20:36)
--- NOTE | 2016-12-12 10:55 | Psych Progress Note ---
[facility] Progress Note - Intro Date of Progress Note: 12/12/16 - Assessment Assessment: Irritable. - Vitals, I&O Vitals: Vital Signs - 24 hr 12/11/16 20:00 Temp 97.8 F HR 80 HR [Radial] 80 RR 18 BP 97/77 O2 Sat % 97 I&O: Intake & Output 12/10/16 12/11/16 12/12/16 12/13/16 06:59 06:59 06:59 06:59 Intake Total 1960 Balance 1960 - ROS Psychological ROS: Report: Hostility, Irritability, Sleep Disturbances Neurological: Report: Behavorial changes - Objective Psych General Appearance: Report: Casually dressed Psych Behavior: Report: Alert, Uncooperative Psych Speech: Report: Loud Psych Mood: Report: Angry, Frustrated, Hostile, Irritable Psych Affect: Report: Constricted, Inappropriate Psych Thought Process: Report: Ruminative Psych Cognition: Report: Confused Psych Insight: Report: Impaired Psych Judgement: Report: Impaired - Plan Plan: To add haldol. - Review of Relevant Data Review of Relevant Data: I have reviewed the following items and time vu (where applicable) has been applied. Psych Data Reviewed: Meds - Diagnosis Diagnosis: Psychosis - Medications Current Medications: Current Medications Acetaminophen (Tylenol) 650 mg PO Q4HR PRN PRN Reason: Pain or Fever >101 Stop: 02/09/17 13:34 Last Admin: 12/12/16 08:30 Dose: 650 mg Al Hydrox/Mg Hydrox/Simethicone (Maalox) 30 ml PO Q4HR PRN PRN Reason: GI DISTRESS Stop: 02/09/17 13:34 Bisacodyl (Dulcolax 10 Mg Supp) 10 mg RC DAILY PRN PRN Reason: Constipation Stop: 02/09/17 13:34 Dextromethorphan/Quinidine (Nuedexta 20mg-10mg) 1 cap PO Q12HR ELDA Stop: 02/09/17 20:59 Last Admin: 12/12/16 08:30 Dose: Not Given Docusate Sodium (Colace) 100 mg PO DAILY ELDA Stop: 02/10/17 08:59 Last Admin: 12/12/16 08:30 Dose: Not Given Haloperidol (Haldol) 2 mg PO BID PRN; Protocol PRN Reason: Agitation Stop: 02/10/17 10:41 Lorazepam (Ativan) 0.5 mg PO Q6HR PRN; Protocol PRN Reason: Agitation Stop: 02/09/17 13:34 Magnesium Hydroxide (Milk Of Magnesia) 30 ml PO DAILY PRN PRN Reason: Constipation Stop: 02/09/17 13:34 Zolpidem Tartrate (Ambien) 5 mg PO HS PRN PRN Reason: Insomnia Stop: 02/09/17 13:34
--- NOTE | 2016-12-12 12:50 | Internal Medicine Prog Note ---
Internal Medicine Subjective - Subjective Service Date: 12/12/16 Patient seen and examined:: with staff Patient is:: awake, talking, agitated, confused Per staff patient has:: no adverse event Internal Medicine Objective - Results Result Diagrams: 12/11/16 00:10 12/11/16 00:10 Recent Labs: Laboratory Last Values WBC 8.1 Th/cmm (4.8-10.8) 12/11/16 00:10 RBC 4.58 Mil/cmm (3.80-5.80) 12/11/16 00:10 Hgb 13.7 gm/dL (12.6-17.4) 12/11/16 00:10 Hct 41.8 % (39.0-49.0) 12/11/16 00:10 MCV 91.2 fl (80-99) 12/11/16 00:10 MCH 29.9 pg (27.0-31.0) 12/11/16 00:10 MCHC Differential 32.8 pg (28.0-36.0) 12/11/16 00:10 RDW 13.0 % (11.5-20.0) 12/11/16 00:10 Plt Count 272 Th/cmm (150-400) 12/11/16 00:10 MPV 6.5 fl 12/11/16 00:10 Neutrophils % 58.5 % (40.0-80.0) 12/11/16 00:10 Lymphocytes % 27.6 % (20.0-50.0) 12/11/16 00:10 Monocytes % 8.4 % (2.0-10.0) 12/11/16 00:10 Eosinophils % 1.6 % (0.0-5.0) 12/11/16 00:10 Basophils % 3.9 % (0.0-2.0) H 12/11/16 00:10 PT 9.9 SECONDS (9.5-11.5) 12/11/16 00:10 INR 0.95 (0.5-1.4) 12/11/16 00:10 PTT (Actin FS) 24.7 SECONDS (26.0-38.0) L 12/11/16 00:10 Sodium 129 mEq/L (136-145) L 12/11/16 00:10 Potassium 4.3 mEq/L (3.5-5.1) 12/11/16 00:10 Chloride 99 mEq/L (98-107) 12/11/16 00:10 Carbon Dioxide 29.2 mEq/L (21.0-31.0) 12/11/16 00:10 Anion Gap 5.1 (7.0-16.0) L 12/11/16 00:10 BUN 12 mg/dL (7-25) 12/11/16 00:10 Creatinine 0.4 mg/dL (0.7-1.3) L 12/11/16 00:10 Est GFR ( Amer) > 60.0 ml/min (>90) 12/11/16 00:10 Est GFR (Non-Af Amer) > 60.0 ml/min 12/11/16 00:10 BUN/Creatinine Ratio 30.0 12/11/16 00:10 Glucose 97 mg/dL (70-105) 12/11/16 00:10 Calcium 9.1 mg/dL (8.6-10.3) 12/11/16 00:10 Total Bilirubin 0.5 mg/dL (0.3-1.0) 12/11/16 00:10 AST 15 U/L (13-39) 12/11/16 00:10 ALT 10 U/L (7-52) 12/11/16 00:10 Alkaline Phosphatase 215 U/L (34-104) H 12/11/16 00:10 Troponin I < 0.01 ng/mL (0.01-0.05) L 12/11/16 00:10 Total Protein 6.8 gm/dL (6.0-8.3) 12/11/16 00:10 Albumin 3.9 gm/dL (4.2-5.5) L 12/11/16 00:10 Globulin 2.9 gm/dL 12/11/16 00:10 Albumin/Globulin Ratio 1.3 (1.0-1.8) 12/11/16 00:10 Triglycerides 84 mg/dL (<150) 12/11/16 00:10 Cholesterol 174 mg/dL (<200) 12/11/16 00:10 LDL Cholesterol Direct 101 mg/dL (75-193) 12/11/16 00:10 HDL Cholesterol 61 mg/dL (23-92) 12/11/16 00:10 TSH 0.85 uIU/ml (0.34-5.60) 12/11/16 00:15 - Physical Exam Vitals and I&O: Vital Signs Temp 97.8 F 12/11/16 20:00 Pulse 80 12/11/16 20:00 Resp 18 12/11/16 20:00 BP 97/77 12/11/16 20:00 Pulse Ox 97 12/11/16 20:00 Intake & Output 12/11/16 12/12/16 12/12/16 18:59 06:59 18:59 Intake Total 1800 160 Balance 1800 160 Intake: Oral 1800 120 Other 40 Other: # Voids 4 3 # Bowel Movements 0 Active Medications: Current Medications Acetaminophen (Tylenol) 650 mg PO Q4HR PRN PRN Reason: Pain or Fever >101 Stop: 02/09/17 13:34 Last Admin: 12/12/16 08:30 Dose: 650 mg Al Hydrox/Mg Hydrox/Simethicone (Maalox) 30 ml PO Q4HR PRN PRN Reason: GI DISTRESS Stop: 02/09/17 13:34 Bisacodyl (Dulcolax 10 Mg Supp) 10 mg RC DAILY PRN PRN Reason: Constipation Stop: 02/09/17 13:34 Dextromethorphan/Quinidine (Nuedexta 20mg-10mg) 1 cap PO Q12HR ELDA Stop: 02/09/17 20:59 Last Admin: 12/12/16 08:30 Dose: Not Given Docusate Sodium (Colace) 100 mg PO DAILY ELDA Stop: 02/10/17 08:59 Last Admin: 12/12/16 08:30 Dose: Not Given Haloperidol (Haldol) 2 mg PO BID PRN; Protocol PRN Reason: Agitation Stop: 02/10/17 10:41 Lorazepam (Ativan) 0.5 mg PO Q6HR PRN; Protocol PRN Reason: Agitation Stop: 02/09/17 13:34 Magnesium Hydroxide (Milk Of Magnesia) 30 ml PO DAILY PRN PRN Reason: Constipation Stop: 02/09/17 13:34 Zolpidem Tartrate (Ambien) 5 mg PO HS PRN PRN Reason: Insomnia Stop: 02/09/17 13:34 General: alert, NAD HEENT: NC/AT, PERRLA Neck: Supple Lungs: CTAB Cardiovascular: RRR, Normal S1, Normal S2, without murmur Abdomen: soft, non-tender, non-distended, positive bowel sound Extremities: clear Neurological: no change - Procedures Procedures: Procedures Procedure Code Date OTHER GROUP THERAPY 94.44 10/28/14 Internal Medicine Assmt/Plan - Assessment Assessment: DEMENTIA INSOMNIA OA GASTRITIS SCHIZOPHRENIA AHD CAD HTN - Plan Plan: FALL PRECAUTIONS MONITOR BP WILL MONITOR PATIENT CLOSELY.
[2016-12-12] MEDS: Maalox 30 mL Cup PO PRN (20:36)
[2016-12-13] MEDS: Multivitamin w/ Minerals Tab PO SCH (08:46)
[2016-12-13] MEDS: Dextromethorphan/Quinidine 20mg/10mg Cap PO SCH ×2 (08:46→23:40)
--- NOTE | 2016-12-13 12:21 | Psych Progress Note ---
[facility] Progress Note - Intro Date of Progress Note: 12/13/16 - Assessment Assessment: Irritable. - Vitals, I&O Vitals: Vital Signs - 24 hr 12/12/16 12/12/16 12/13/16 14:00 20:08 05:57 Temp 97.6 F 97.0 F 98.3 F HR 84 69 81 RR 20 18 19 BP 122/80 131/79 138/74 O2 Sat % 99 97 95 I&O: Intake & Output 12/11/16 12/12/16 12/13/16 12/14/16 06:59 06:59 06:59 06:59 Intake Total 1960 1140 Balance 1960 1140 - ROS Psychological ROS: Report: Concentration difficulty, Hostility, Irritability Neurological: Report: Behavorial changes - Objective Psych Objective: See below Psych General Appearance: Report: Older than stated age Psych Behavior: Report: Alert, Uncooperative Psych Speech: Report: Normal in Rate and amount, Loud Psych Mood: Report: Angry, Frustrated, Hostile, Irritable Psych Affect: Report: Constricted, Inappropriate, Increased Intensity Psych Thought Process: Report: Flight of Ideas, Goal Directed Psych Cognition: Report: Grossly Intact Psych Insight: Report: Impaired Psych Judgement: Report: Impaired - Plan Plan: To add haldol. - Review of Relevant Data Review of Relevant Data: I have reviewed the following items and time vu (where applicable) has been applied. Psych Data Reviewed: Meds - Diagnosis Diagnosis: Scizo aff. dis. - Medications Current Medications: Current Medications Acetaminophen (Tylenol) 650 mg PO Q4HR PRN PRN Reason: Pain or Fever >101 Stop: 02/09/17 13:34 Last Admin: 12/13/16 08:45 Dose: 650 mg Al Hydrox/Mg Hydrox/Simethicone (Maalox) 30 ml PO Q4HR PRN PRN Reason: GI DISTRESS Stop: 02/09/17 13:34 Last Admin: 12/12/16 20:36 Dose: 30 ml Bisacodyl (Dulcolax 10 Mg Supp) 10 mg RC DAILY PRN PRN Reason: Constipation Stop: 02/09/17 13:34 Dextromethorphan/Quinidine (Nuedexta 20mg-10mg) 1 cap PO Q12HR ELDA Stop: 02/09/17 20:59 Last Admin: 12/13/16 08:46 Dose: 1 cap Docusate Sodium (Colace) 100 mg PO DAILY ELDA Stop: 02/10/17 08:59 Last Admin: 12/13/16 08:46 Dose: 100 mg Haloperidol (Haldol) 2 mg PO BID PRN; Protocol PRN Reason: Agitation Stop: 02/10/17 10:41 Lorazepam (Ativan) 0.5 mg PO Q6HR PRN; Protocol PRN Reason: Agitation Stop: 02/09/17 13:34 Magnesium Hydroxide (Milk Of Magnesia) 30 ml PO DAILY PRN PRN Reason: Constipation Stop: 02/09/17 13:34 Zolpidem Tartrate (Ambien) 5 mg PO HS PRN PRN Reason: Insomnia Stop: 02/09/17 13:34 Last Admin: 12/12/16 20:59 Dose: 5 mg
--- NOTE | 2016-12-13 14:11 | Internal Medicine Prog Note ---
Internal Medicine Subjective - Subjective Service Date: 12/13/16 Patient seen and examined:: with staff Patient is:: awake, talking, agitated, confused Per staff patient has:: no adverse event Internal Medicine Objective - Results Result Diagrams: 12/11/16 00:10 12/11/16 00:10 Recent Labs: Laboratory Last Values WBC 8.1 Th/cmm (4.8-10.8) 12/11/16 00:10 RBC 4.58 Mil/cmm (3.80-5.80) 12/11/16 00:10 Hgb 13.7 gm/dL (12.6-17.4) 12/11/16 00:10 Hct 41.8 % (39.0-49.0) 12/11/16 00:10 MCV 91.2 fl (80-99) 12/11/16 00:10 MCH 29.9 pg (27.0-31.0) 12/11/16 00:10 MCHC Differential 32.8 pg (28.0-36.0) 12/11/16 00:10 RDW 13.0 % (11.5-20.0) 12/11/16 00:10 Plt Count 272 Th/cmm (150-400) 12/11/16 00:10 MPV 6.5 fl 12/11/16 00:10 Neutrophils % 58.5 % (40.0-80.0) 12/11/16 00:10 Lymphocytes % 27.6 % (20.0-50.0) 12/11/16 00:10 Monocytes % 8.4 % (2.0-10.0) 12/11/16 00:10 Eosinophils % 1.6 % (0.0-5.0) 12/11/16 00:10 Basophils % 3.9 % (0.0-2.0) H 12/11/16 00:10 PT 9.9 SECONDS (9.5-11.5) 12/11/16 00:10 INR 0.95 (0.5-1.4) 12/11/16 00:10 PTT (Actin FS) 24.7 SECONDS (26.0-38.0) L 12/11/16 00:10 Sodium 129 mEq/L (136-145) L 12/11/16 00:10 Potassium 4.3 mEq/L (3.5-5.1) 12/11/16 00:10 Chloride 99 mEq/L (98-107) 12/11/16 00:10 Carbon Dioxide 29.2 mEq/L (21.0-31.0) 12/11/16 00:10 Anion Gap 5.1 (7.0-16.0) L 12/11/16 00:10 BUN 12 mg/dL (7-25) 12/11/16 00:10 Creatinine 0.4 mg/dL (0.7-1.3) L 12/11/16 00:10 Est GFR ( Amer) > 60.0 ml/min (>90) 12/11/16 00:10 Est GFR (Non-Af Amer) > 60.0 ml/min 12/11/16 00:10 BUN/Creatinine Ratio 30.0 12/11/16 00:10 Glucose 97 mg/dL (70-105) 12/11/16 00:10 Calcium 9.1 mg/dL (8.6-10.3) 12/11/16 00:10 Total Bilirubin 0.5 mg/dL (0.3-1.0) 12/11/16 00:10 AST 15 U/L (13-39) 12/11/16 00:10 ALT 10 U/L (7-52) 12/11/16 00:10 Alkaline Phosphatase 215 U/L (34-104) H 12/11/16 00:10 Troponin I < 0.01 ng/mL (0.01-0.05) L 12/11/16 00:10 Total Protein 6.8 gm/dL (6.0-8.3) 12/11/16 00:10 Albumin 3.9 gm/dL (4.2-5.5) L 12/11/16 00:10 Globulin 2.9 gm/dL 12/11/16 00:10 Albumin/Globulin Ratio 1.3 (1.0-1.8) 12/11/16 00:10 Triglycerides 84 mg/dL (<150) 12/11/16 00:10 Cholesterol 174 mg/dL (<200) 12/11/16 00:10 LDL Cholesterol Direct 101 mg/dL (75-193) 12/11/16 00:10 HDL Cholesterol 61 mg/dL (23-92) 12/11/16 00:10 TSH 0.85 uIU/ml (0.34-5.60) 12/11/16 00:15 RPR NONREACTIVE (NONREACTIVE) 12/11/16 00:10 - Physical Exam Vitals and I&O: Vital Signs Temp 98.3 F 12/13/16 05:57 Pulse 81 12/13/16 05:57 Resp 19 12/13/16 05:57 BP 138/74 12/13/16 05:57 Pulse Ox 95 12/13/16 05:57 Intake & Output 12/12/16 12/13/16 12/13/16 18:59 06:59 18:59 Intake Total 960 180 Balance 960 180 Intake: Oral 960 180 Other: # Voids 4 2 # Bowel Movements 1 0 Active Medications: Current Medications Acetaminophen (Tylenol) 650 mg PO Q4HR PRN PRN Reason: Pain or Fever >101 Stop: 02/09/17 13:34 Last Admin: 12/13/16 08:45 Dose: 650 mg Al Hydrox/Mg Hydrox/Simethicone (Maalox) 30 ml PO Q4HR PRN PRN Reason: GI DISTRESS Stop: 02/09/17 13:34 Last Admin: 12/12/16 20:36 Dose: 30 ml Bisacodyl (Dulcolax 10 Mg Supp) 10 mg RC DAILY PRN PRN Reason: Constipation Stop: 02/09/17 13:34 Dextromethorphan/Quinidine (Nuedexta 20mg-10mg) 1 cap PO Q12HR ELDA Stop: 02/09/17 20:59 Last Admin: 12/13/16 08:46 Dose: 1 cap Docusate Sodium (Colace) 100 mg PO DAILY ELDA Stop: 02/10/17 08:59 Last Admin: 12/13/16 08:46 Dose: 100 mg Haloperidol (Haldol) 2 mg PO BID PRN; Protocol PRN Reason: Agitation Stop: 02/10/17 10:41 Lorazepam (Ativan) 0.5 mg PO Q6HR PRN; Protocol PRN Reason: Agitation Stop: 02/09/17 13:34 Magnesium Hydroxide (Milk Of Magnesia) 30 ml PO DAILY PRN PRN Reason: Constipation Stop: 02/09/17 13:34 Zolpidem Tartrate (Ambien) 5 mg PO HS PRN PRN Reason: Insomnia Stop: 02/09/17 13:34 Last Admin: 12/12/16 20:59 Dose: 5 mg General: alert, NAD HEENT: NC/AT, PERRLA Neck: Supple Lungs: CTAB Cardiovascular: RRR, Normal S1, Normal S2, without murmur Abdomen: soft, non-tender, non-distended, positive bowel sound Extremities: clear Neurological: no change - Procedures Procedures: Procedures Procedure Code Date OTHER GROUP THERAPY 94.44 10/28/14 Internal Medicine Assmt/Plan - Assessment Assessment: DEMENTIA INSOMNIA OA GASTRITIS SCHIZOPHRENIA AHD CAD HTN - Plan Plan: FALL PRECAUTIONS MONITOR BP WILL MONITOR PATIENT CLOSELY.
[2016-12-13] MEDS: Maalox 30 mL Cup PO PRN (17:17)
[2016-12-14] MEDS: Multivitamin w/ Minerals Tab PO SCH (08:44)
[2016-12-14] MEDS: Dextromethorphan/Quinidine 20mg/10mg Cap PO SCH ×3 (08:44→21:00)
--- NOTE | 2016-12-14 09:40 | Psych Progress Note ---
[facility] Progress Note - Intro Date of Progress Note: 12/14/16 - Assessment Assessment: Irritable and agitated. - Vitals, I&O Vitals: Vital Signs - 24 hr 12/13/16 14:00 Temp 98.2 F HR 84 RR 20 BP 121/72 O2 Sat % 95 I&O: Intake & Output 12/12/16 12/13/16 12/14/16 12/15/16 06:59 06:59 06:59 06:59 Intake Total 1960 1140 1200 Balance 1960 1140 1200 - ROS Psychological ROS: Report: Concentration difficulty, Hostility, Irritability Neurological: Report: Behavorial changes - Objective Psych Objective: See below Psych General Appearance: Report: Older than stated age Psych Behavior: Report: Alert, Uncooperative Psych Speech: Report: Normal in Rate and amount, Loud Psych Mood: Report: Angry, Frustrated, Hostile, Irritable Psych Affect: Report: Constricted, Inappropriate, Increased Intensity Psych Thought Process: Report: Flight of Ideas, Goal Directed Psych Cognition: Report: Grossly Intact Psych Insight: Report: Impaired Psych Judgement: Report: Impaired - Plan Plan: To add haldol. - Review of Relevant Data Review of Relevant Data: I have reviewed the following items and time vu (where applicable) has been applied. - Medications Current Medications: Current Medications Acetaminophen (Tylenol) 650 mg PO Q4HR PRN PRN Reason: Pain or Fever >101 Stop: 02/09/17 13:34 Last Admin: 12/14/16 08:45 Dose: 650 mg Al Hydrox/Mg Hydrox/Simethicone (Maalox) 30 ml PO Q4HR PRN PRN Reason: GI DISTRESS Stop: 02/09/17 13:34 Last Admin: 12/13/16 17:17 Dose: 30 ml Bisacodyl (Dulcolax 10 Mg Supp) 10 mg RC DAILY PRN PRN Reason: Constipation Stop: 02/09/17 13:34 Dextromethorphan/Quinidine (Nuedexta 20mg-10mg) 1 cap PO Q12HR ELDA Stop: 02/09/17 20:59 Last Admin: 12/14/16 08:44 Dose: 1 cap Docusate Sodium (Colace) 100 mg PO DAILY ELDA Stop: 02/10/17 08:59 Last Admin: 12/14/16 08:44 Dose: 100 mg Haloperidol (Haldol) 2 mg PO BID PRN; Protocol PRN Reason: Agitation Stop: 02/10/17 10:41 Lorazepam (Ativan) 0.5 mg PO Q6HR PRN; Protocol PRN Reason: Agitation Stop: 02/09/17 13:34 Magnesium Hydroxide (Milk Of Magnesia) 30 ml PO DAILY PRN PRN Reason: Constipation Stop: 02/09/17 13:34 Zolpidem Tartrate (Ambien) 5 mg PO HS PRN PRN Reason: Insomnia Stop: 02/09/17 13:34 Last Admin: 12/13/16 20:56 Dose: 5 mg
--- NOTE | 2016-12-14 12:43 | Internal Medicine Prog Note ---
Internal Medicine Subjective - Subjective Service Date: 12/14/16 Patient seen and examined:: with staff Patient is:: awake, talking, agitated, confused Per staff patient has:: no adverse event Internal Medicine Objective - Results Result Diagrams: 12/11/16 00:10 12/11/16 00:10 Recent Labs: Laboratory Last Values WBC 8.1 Th/cmm (4.8-10.8) 12/11/16 00:10 RBC 4.58 Mil/cmm (3.80-5.80) 12/11/16 00:10 Hgb 13.7 gm/dL (12.6-17.4) 12/11/16 00:10 Hct 41.8 % (39.0-49.0) 12/11/16 00:10 MCV 91.2 fl (80-99) 12/11/16 00:10 MCH 29.9 pg (27.0-31.0) 12/11/16 00:10 MCHC Differential 32.8 pg (28.0-36.0) 12/11/16 00:10 RDW 13.0 % (11.5-20.0) 12/11/16 00:10 Plt Count 272 Th/cmm (150-400) 12/11/16 00:10 MPV 6.5 fl 12/11/16 00:10 Neutrophils % 58.5 % (40.0-80.0) 12/11/16 00:10 Lymphocytes % 27.6 % (20.0-50.0) 12/11/16 00:10 Monocytes % 8.4 % (2.0-10.0) 12/11/16 00:10 Eosinophils % 1.6 % (0.0-5.0) 12/11/16 00:10 Basophils % 3.9 % (0.0-2.0) H 12/11/16 00:10 PT 9.9 SECONDS (9.5-11.5) 12/11/16 00:10 INR 0.95 (0.5-1.4) 12/11/16 00:10 PTT (Actin FS) 24.7 SECONDS (26.0-38.0) L 12/11/16 00:10 Sodium 129 mEq/L (136-145) L 12/11/16 00:10 Potassium 4.3 mEq/L (3.5-5.1) 12/11/16 00:10 Chloride 99 mEq/L (98-107) 12/11/16 00:10 Carbon Dioxide 29.2 mEq/L (21.0-31.0) 12/11/16 00:10 Anion Gap 5.1 (7.0-16.0) L 12/11/16 00:10 BUN 12 mg/dL (7-25) 12/11/16 00:10 Creatinine 0.4 mg/dL (0.7-1.3) L 12/11/16 00:10 Est GFR ( Amer) > 60.0 ml/min (>90) 12/11/16 00:10 Est GFR (Non-Af Amer) > 60.0 ml/min 12/11/16 00:10 BUN/Creatinine Ratio 30.0 12/11/16 00:10 Glucose 97 mg/dL (70-105) 12/11/16 00:10 Calcium 9.1 mg/dL (8.6-10.3) 12/11/16 00:10 Total Bilirubin 0.5 mg/dL (0.3-1.0) 12/11/16 00:10 AST 15 U/L (13-39) 12/11/16 00:10 ALT 10 U/L (7-52) 12/11/16 00:10 Alkaline Phosphatase 215 U/L (34-104) H 12/11/16 00:10 Troponin I < 0.01 ng/mL (0.01-0.05) L 12/11/16 00:10 Total Protein 6.8 gm/dL (6.0-8.3) 12/11/16 00:10 Albumin 3.9 gm/dL (4.2-5.5) L 12/11/16 00:10 Globulin 2.9 gm/dL 12/11/16 00:10 Albumin/Globulin Ratio 1.3 (1.0-1.8) 12/11/16 00:10 Triglycerides 84 mg/dL (<150) 12/11/16 00:10 Cholesterol 174 mg/dL (<200) 12/11/16 00:10 LDL Cholesterol Direct 101 mg/dL (75-193) 12/11/16 00:10 HDL Cholesterol 61 mg/dL (23-92) 12/11/16 00:10 TSH 0.85 uIU/ml (0.34-5.60) 12/11/16 00:15 RPR NONREACTIVE (NONREACTIVE) 12/11/16 00:10 - Physical Exam Vitals and I&O: Vital Signs Temp 98.2 F 12/13/16 14:00 Pulse 84 12/13/16 14:00 Resp 20 12/13/16 14:00 BP 121/72 12/13/16 14:00 Pulse Ox 95 12/13/16 14:00 Intake & Output 12/13/16 12/14/16 12/14/16 18:59 06:59 18:59 Intake Total 1200 Balance 1200 Intake: Oral 1200 Other: # Voids 2 # Bowel Movements 1 Active Medications: Current Medications Acetaminophen (Tylenol) 650 mg PO Q4HR PRN PRN Reason: Pain or Fever >101 Stop: 02/09/17 13:34 Last Admin: 12/14/16 08:45 Dose: 650 mg Al Hydrox/Mg Hydrox/Simethicone (Maalox) 30 ml PO Q4HR PRN PRN Reason: GI DISTRESS Stop: 02/09/17 13:34 Last Admin: 12/13/16 17:17 Dose: 30 ml Bisacodyl (Dulcolax 10 Mg Supp) 10 mg RC DAILY PRN PRN Reason: Constipation Stop: 02/09/17 13:34 Dextromethorphan/Quinidine (Nuedexta 20mg-10mg) 1 cap PO Q12HR ELDA Stop: 02/09/17 20:59 Last Admin: 12/14/16 08:44 Dose: 1 cap Docusate Sodium (Colace) 100 mg PO DAILY ELDA Stop: 02/10/17 08:59 Last Admin: 12/14/16 08:44 Dose: 100 mg Haloperidol (Haldol) 2 mg PO BID PRN; Protocol PRN Reason: Agitation Stop: 02/10/17 10:41 Lorazepam (Ativan) 0.5 mg PO Q6HR PRN; Protocol PRN Reason: Agitation Stop: 02/09/17 13:34 Magnesium Hydroxide (Milk Of Magnesia) 30 ml PO DAILY PRN PRN Reason: Constipation Stop: 02/09/17 13:34 Zolpidem Tartrate (Ambien) 5 mg PO HS PRN PRN Reason: Insomnia Stop: 02/09/17 13:34 Last Admin: 12/13/16 20:56 Dose: 5 mg General: alert, NAD HEENT: NC/AT, PERRLA Neck: Supple Lungs: CTAB Cardiovascular: RRR, Normal S1, Normal S2, without murmur Abdomen: soft, non-tender, non-distended, positive bowel sound Extremities: clear Neurological: no change - Procedures Procedures: Procedures Procedure Code Date OTHER GROUP THERAPY 94.44 10/28/14 Internal Medicine Assmt/Plan - Assessment Assessment: DEMENTIA INSOMNIA OA GASTRITIS SCHIZOPHRENIA AHD CAD HTN - Plan Plan: FALL PRECAUTIONS MONITOR BP WILL MONITOR PATIENT CLOSELY.
[2016-12-15] MEDS: Dextromethorphan/Quinidine 20mg/10mg Cap PO SCH ×2 (08:25→21:06)
[2016-12-15] MEDS: Multivitamin w/ Minerals Tab PO SCH (08:26)
[2016-12-15] MEDS: Maalox 30 mL Cup PO PRN (08:45)
--- NOTE | 2016-12-15 09:59 | Internal Medicine Prog Note ---
Internal Medicine Subjective - Subjective Service Date: 12/15/16 Patient is:: awake, talking, agitated, confused Per staff patient has:: no adverse event Internal Medicine Objective - Results Result Diagrams: 12/11/16 00:10 12/11/16 00:10 Recent Labs: Laboratory Last Values WBC 8.1 Th/cmm (4.8-10.8) 12/11/16 00:10 RBC 4.58 Mil/cmm (3.80-5.80) 12/11/16 00:10 Hgb 13.7 gm/dL (12.6-17.4) 12/11/16 00:10 Hct 41.8 % (39.0-49.0) 12/11/16 00:10 MCV 91.2 fl (80-99) 12/11/16 00:10 MCH 29.9 pg (27.0-31.0) 12/11/16 00:10 MCHC Differential 32.8 pg (28.0-36.0) 12/11/16 00:10 RDW 13.0 % (11.5-20.0) 12/11/16 00:10 Plt Count 272 Th/cmm (150-400) 12/11/16 00:10 MPV 6.5 fl 12/11/16 00:10 Neutrophils % 58.5 % (40.0-80.0) 12/11/16 00:10 Lymphocytes % 27.6 % (20.0-50.0) 12/11/16 00:10 Monocytes % 8.4 % (2.0-10.0) 12/11/16 00:10 Eosinophils % 1.6 % (0.0-5.0) 12/11/16 00:10 Basophils % 3.9 % (0.0-2.0) H 12/11/16 00:10 PT 9.9 SECONDS (9.5-11.5) 12/11/16 00:10 INR 0.95 (0.5-1.4) 12/11/16 00:10 PTT (Actin FS) 24.7 SECONDS (26.0-38.0) L 12/11/16 00:10 Sodium 129 mEq/L (136-145) L 12/11/16 00:10 Potassium 4.3 mEq/L (3.5-5.1) 12/11/16 00:10 Chloride 99 mEq/L (98-107) 12/11/16 00:10 Carbon Dioxide 29.2 mEq/L (21.0-31.0) 12/11/16 00:10 Anion Gap 5.1 (7.0-16.0) L 12/11/16 00:10 BUN 12 mg/dL (7-25) 12/11/16 00:10 Creatinine 0.4 mg/dL (0.7-1.3) L 12/11/16 00:10 Est GFR ( Amer) > 60.0 ml/min (>90) 12/11/16 00:10 Est GFR (Non-Af Amer) > 60.0 ml/min 12/11/16 00:10 BUN/Creatinine Ratio 30.0 12/11/16 00:10 Glucose 97 mg/dL (70-105) 12/11/16 00:10 Calcium 9.1 mg/dL (8.6-10.3) 12/11/16 00:10 Total Bilirubin 0.5 mg/dL (0.3-1.0) 12/11/16 00:10 AST 15 U/L (13-39) 12/11/16 00:10 ALT 10 U/L (7-52) 12/11/16 00:10 Alkaline Phosphatase 215 U/L (34-104) H 12/11/16 00:10 Troponin I < 0.01 ng/mL (0.01-0.05) L 12/11/16 00:10 Total Protein 6.8 gm/dL (6.0-8.3) 12/11/16 00:10 Albumin 3.9 gm/dL (4.2-5.5) L 12/11/16 00:10 Globulin 2.9 gm/dL 12/11/16 00:10 Albumin/Globulin Ratio 1.3 (1.0-1.8) 12/11/16 00:10 Triglycerides 84 mg/dL (<150) 12/11/16 00:10 Cholesterol 174 mg/dL (<200) 12/11/16 00:10 LDL Cholesterol Direct 101 mg/dL (75-193) 12/11/16 00:10 HDL Cholesterol 61 mg/dL (23-92) 12/11/16 00:10 TSH 0.85 uIU/ml (0.34-5.60) 12/11/16 00:15 RPR NONREACTIVE (NONREACTIVE) 12/11/16 00:10 - Physical Exam Vitals and I&O: Vital Signs Temp 98.4 F 12/14/16 15:57 Pulse 75 12/14/16 15:57 Resp 20 12/14/16 15:57 BP 135/70 12/14/16 15:57 Pulse Ox 97 12/14/16 15:57 Intake & Output 12/14/16 12/15/16 12/15/16 18:59 06:59 18:59 Intake Total 850 Balance 850 Weight (lbs) 134 lb 4.8 oz Intake: Oral 850 Other: # Voids 4 # Bowel Movements 2 Active Medications: Current Medications Acetaminophen (Tylenol) 650 mg PO Q4HR PRN PRN Reason: Pain or Fever >101 Stop: 02/09/17 13:34 Last Admin: 12/15/16 08:45 Dose: 650 mg Al Hydrox/Mg Hydrox/Simethicone (Maalox) 30 ml PO Q4HR PRN PRN Reason: GI DISTRESS Stop: 02/09/17 13:34 Last Admin: 12/15/16 08:45 Dose: 30 ml Bisacodyl (Dulcolax 10 Mg Supp) 10 mg RC DAILY PRN PRN Reason: Constipation Stop: 02/09/17 13:34 Dextromethorphan/Quinidine (Nuedexta 20mg-10mg) 1 cap PO Q12HR ELDA Stop: 02/09/17 20:59 Last Admin: 12/15/16 08:25 Dose: Not Given Docusate Sodium (Colace) 100 mg PO DAILY ELDA Stop: 02/10/17 08:59 Last Admin: 12/15/16 08:25 Dose: Not Given Haloperidol (Haldol) 2 mg PO BID PRN; Protocol PRN Reason: Agitation Stop: 02/10/17 10:41 Lorazepam (Ativan) 0.5 mg PO Q6HR PRN; Protocol PRN Reason: Agitation Stop: 02/09/17 13:34 Magnesium Hydroxide (Milk Of Magnesia) 30 ml PO DAILY PRN PRN Reason: Constipation Stop: 02/09/17 13:34 Zolpidem Tartrate (Ambien) 5 mg PO HS PRN PRN Reason: Insomnia Stop: 02/09/17 13:34 Last Admin: 12/13/16 20:56 Dose: 5 mg General: alert, NAD HEENT: NC/AT, PERRLA Neck: Supple Lungs: CTAB Cardiovascular: RRR, Normal S1, Normal S2, without murmur Abdomen: soft, non-tender, non-distended, positive bowel sound Extremities: clear Neurological: no change - Procedures Procedures: Procedures Procedure Code Date OTHER GROUP THERAPY 94.44 10/28/14 Internal Medicine Assmt/Plan - Assessment Assessment: DEMENTIA INSOMNIA OA GASTRITIS SCHIZOPHRENIA AHD CAD HTN - Plan Plan: FALL PRECAUTIONS MONITOR BP WILL MONITOR PATIENT CLOSELY. Nutritional Asmnt/Malnutr-PDOC - Dietary Evaluation Malnutrition Findings (Please click <Entered> for more info): Nutritional Asmnt/Malnutrition Start: 12/14/16 14: 08 Text: Status: Complete Freq: Document 12/14/16 14:24 GSUN (Rec: 12/14/16 14:35 [email or web address] [email or web address]) Nutritional Asmnt/Malnutrition Patient General Information Nutritional Screening Moderate Risk Screening Diagnosis Bipolar Pertinent Medical Hx/Surgical Hx Dementia, insomnia, OA, gastritis, schizophrenia, AHD, CAD, HTN Subjective Information 66 year old male from SNF. Pt was pleasant, alert, talkative , slurred speech slightly difficult to understand. Pt is bedridden, appeared overall thin, minimal fat stores, muscle present, no severe wasting noted. CBW 134.3lb via bedscale, pt weighed 130lb during 10/30 adm this year. Pt is edentulous, no difficulties with chopped. Avg PO intake 92% of meals since adm, meeting nutritional needs. Pt requested for Boost TID wanting to gain/maintain weight, RD agreeable to plan. Current Diet Order/ Nutrition Support [facility] soft chopped. Pertinent Medications Dulcolax, Colace, Haldol, MOM Pertinent Labs Reviewed. Nutritional Hx/Data Height 5 ft 5 in Height (Calculated Centimeters) 165.1 Current Weight (lbs) 134 lb 4.8 oz Weight (Calculated Kilograms) 60.9 Weight (Calculated Grams) [address].5 [place] Body Weight 136 Weight Status Approriate GI Symptoms Food Allergies No Cultural/Ethnic/Congregational Belief Pt likes salad, flores side up eggs. Skin Integrity/Comment: José Miguel 16. Skin intact. Current %PO Good (75-100%) Estimated Nutritional Goals BEE in Kcals: Using Current wt Calories/Kcals/Kg CBW 134.3lb/61kg Kcals Calculated 1525-1830kcal (25-30kcal/kg) Protein: Using Current wt Protein Calculated 61g (1g/kg) Fluid: ml 1525-1830ml (1ml/kcal) Nutritional Problem 1. Problem Problem No nutritional problem at this time. Intervention/Recommendation Comments 1. Continue with cureent diet order. Avg PO intake is adequate. 2. Recommend Boost TID per pt' s request to maintain/gain weight and muscle, pt is overall thin, RD agreeable to plan. Expected Outcomes/Goals Expected Outcomes/Goals 1. PO intake continue to meet at least 75% of estimated nutritional needs.
--- NOTE | 2016-12-15 12:52 | Psych Progress Note ---
[facility] Psych Progress Note - Intro Date of Progress Note: 12/15/16 - Assessment Assessment: Irritable and agitated. - Vitals, I&O Vitals: Vital Signs - 24 hr 12/14/16 15:57 Temp 98.4 F HR 75 RR 20 BP 135/70 O2 Sat % 97 I&O: Intake & Output 12/13/16 12/14/16 12/15/16 12/16/16 06:59 06:59 06:59 06:59 Intake Total 1140 1200 850 Balance 1140 1200 850 Weight (lbs) 60.917 kg - ROS Psychological ROS: Report: Concentration difficulty, Hostility, Irritability Neurological: Report: Behavorial changes - Objective Psych Objective: See below Psych General Appearance: Report: No acute distress, Older than stated age, Casually dressed Psych Behavior: Report: Alert, Uncooperative Psych Speech: Report: Normal in Rate and amount, Loud Psych Mood: Report: Angry, Frustrated, Hostile, Irritable Psych Affect: Report: Constricted, Inappropriate, INC. INTEN Psych Thought Process: Report: Paranoid Psych Cognition: Report: Grossly Intact Psych Insight: Report: Impaired Psych Judgement: Report: Impaired - Plan Plan: To add haldol and continue supportive tx and look for placement. - Review of Relevant Data Review of Relevant Data: I have reviewed the following items and time vu (where applicable) has been applied. Psych Data Reviewed: Meds - Medications Current Medications: Current Medications Acetaminophen (Tylenol) 650 mg PO Q4HR PRN PRN Reason: Pain or Fever >101 Stop: 02/09/17 13:34 Last Admin: 12/15/16 08:45 Dose: 650 mg Al Hydrox/Mg Hydrox/Simethicone (Maalox) 30 ml PO Q4HR PRN PRN Reason: GI DISTRESS Stop: 02/09/17 13:34 Last Admin: 12/15/16 08:45 Dose: 30 ml Bisacodyl (Dulcolax 10 Mg Supp) 10 mg RC DAILY PRN PRN Reason: Constipation Stop: 02/09/17 13:34 Dextromethorphan/Quinidine (Nuedexta 20mg-10mg) 1 cap PO Q12HR ELDA Stop: 02/09/17 20:59 Last Admin: 12/15/16 08:25 Dose: Not Given Docusate Sodium (Colace) 100 mg PO DAILY ELDA Stop: 02/10/17 08:59 Last Admin: 12/15/16 08:25 Dose: Not Given Haloperidol (Haldol) 2 mg PO BID PRN; Protocol PRN Reason: Agitation Stop: 02/10/17 10:41 Lorazepam (Ativan) 0.5 mg PO Q6HR PRN; Protocol PRN Reason: Agitation Stop: 02/09/17 13:34 Magnesium Hydroxide (Milk Of Magnesia) 30 ml PO DAILY PRN PRN Reason: Constipation Stop: 02/09/17 13:34 Zolpidem Tartrate (Ambien) 5 mg PO HS PRN PRN Reason: Insomnia Stop: 02/09/17 13:34 Last Admin: 12/13/16 20:56 Dose: 5 mg
[2016-12-16] MEDS: Dextromethorphan/Quinidine 20mg/10mg Cap PO SCH ×2 (08:14→20:02)
[2016-12-16] MEDS: Multivitamin w/ Minerals Tab PO SCH (08:15)
--- NOTE | 2016-12-16 10:48 | Psych Progress Note ---
[facility] Progress Note - Intro Date of Progress Note: 12/16/16 - Assessment Assessment: Irritable and agitated. - Vitals, I&O Vitals: Vital Signs - 24 hr 12/15/16 21:11 Temp 97.6 F HR 83 RR 19 BP 119/70 O2 Sat % 97 I&O: Intake & Output 12/14/16 12/15/16 12/16/16 12/17/16 06:59 06:59 06:59 06:59 Intake Total 1200 850 Balance 1200 850 Weight (lbs) 60.917 kg - ROS Psychological ROS: Report: Concentration difficulty, Hostility, Irritability Neurological: Report: Behavorial changes, Impaired Coord/balance - Objective Psych Objective: See below Psych General Appearance: Report: No acute distress, Older than stated age, Casually dressed Psych Behavior: Report: Alert, Uncooperative Psych Speech: Report: Normal in Rate and amount, Loud Psych Mood: Report: Angry, Frustrated, Hostile, Irritable Psych Affect: Report: Constricted, Inappropriate, INC. INTEN Psych Thought Process: Report: Paranoid Psych Cognition: Report: Grossly Intact Psych Insight: Report: Impaired Psych Judgement: Report: Impaired - Plan Plan: Patient has to be given haldol. To continue supportive tx and await placement. - Review of Relevant Data Review of Relevant Data: I have reviewed the following items and time vu (where applicable) has been applied. Psych Data Reviewed: Meds - Medications Current Medications: Current Medications Acetaminophen (Tylenol) 650 mg PO Q4HR PRN PRN Reason: Pain or Fever >101 Stop: 02/09/17 13:34 Last Admin: 12/16/16 08:48 Dose: 650 mg Al Hydrox/Mg Hydrox/Simethicone (Maalox) 30 ml PO Q4HR PRN PRN Reason: GI DISTRESS Stop: 02/09/17 13:34 Last Admin: 12/15/16 08:45 Dose: 30 ml Bisacodyl (Dulcolax 10 Mg Supp) 10 mg RC DAILY PRN PRN Reason: Constipation Stop: 02/09/17 13:34 Dextromethorphan/Quinidine (Nuedexta 20mg-10mg) 1 cap PO Q12HR ELDA Stop: 02/09/17 20:59 Last Admin: 12/16/16 08:14 Dose: Not Given Docusate Sodium (Colace) 100 mg PO DAILY ELDA Stop: 02/10/17 08:59 Last Admin: 12/16/16 08:14 Dose: Not Given Haloperidol (Haldol) 2 mg PO BID PRN; Protocol PRN Reason: Agitation Stop: 02/10/17 10:41 Last Admin: 12/16/16 08:50 Dose: 2 mg Lorazepam (Ativan) 0.5 mg PO Q6HR PRN; Protocol PRN Reason: Agitation Stop: 02/09/17 13:34 Magnesium Hydroxide (Milk Of Magnesia) 30 ml PO DAILY PRN PRN Reason: Constipation Stop: 02/09/17 13:34 Zolpidem Tartrate (Ambien) 5 mg PO HS PRN PRN Reason: Insomnia Stop: 02/09/17 13:34 Last Admin: 12/15/16 21:05 Dose: 5 mg
--- NOTE | 2016-12-16 15:36 | Internal Medicine Prog Note ---
Internal Medicine Subjective - Subjective Service Date: 12/16/16 Patient is:: awake, talking, agitated, confused Per staff patient has:: no adverse event Internal Medicine Objective - Results Result Diagrams: 12/11/16 00:10 12/11/16 00:10 Recent Labs: Laboratory Last Values WBC 8.1 Th/cmm (4.8-10.8) 12/11/16 00:10 RBC 4.58 Mil/cmm (3.80-5.80) 12/11/16 00:10 Hgb 13.7 gm/dL (12.6-17.4) 12/11/16 00:10 Hct 41.8 % (39.0-49.0) 12/11/16 00:10 MCV 91.2 fl (80-99) 12/11/16 00:10 MCH 29.9 pg (27.0-31.0) 12/11/16 00:10 MCHC Differential 32.8 pg (28.0-36.0) 12/11/16 00:10 RDW 13.0 % (11.5-20.0) 12/11/16 00:10 Plt Count 272 Th/cmm (150-400) 12/11/16 00:10 MPV 6.5 fl 12/11/16 00:10 Neutrophils % 58.5 % (40.0-80.0) 12/11/16 00:10 Lymphocytes % 27.6 % (20.0-50.0) 12/11/16 00:10 Monocytes % 8.4 % (2.0-10.0) 12/11/16 00:10 Eosinophils % 1.6 % (0.0-5.0) 12/11/16 00:10 Basophils % 3.9 % (0.0-2.0) H 12/11/16 00:10 PT 9.9 SECONDS (9.5-11.5) 12/11/16 00:10 INR 0.95 (0.5-1.4) 12/11/16 00:10 PTT (Actin FS) 24.7 SECONDS (26.0-38.0) L 12/11/16 00:10 Sodium 129 mEq/L (136-145) L 12/11/16 00:10 Potassium 4.3 mEq/L (3.5-5.1) 12/11/16 00:10 Chloride 99 mEq/L (98-107) 12/11/16 00:10 Carbon Dioxide 29.2 mEq/L (21.0-31.0) 12/11/16 00:10 Anion Gap 5.1 (7.0-16.0) L 12/11/16 00:10 BUN 12 mg/dL (7-25) 12/11/16 00:10 Creatinine 0.4 mg/dL (0.7-1.3) L 12/11/16 00:10 Est GFR ( Amer) > 60.0 ml/min (>90) 12/11/16 00:10 Est GFR (Non-Af Amer) > 60.0 ml/min 12/11/16 00:10 BUN/Creatinine Ratio 30.0 12/11/16 00:10 Glucose 97 mg/dL (70-105) 12/11/16 00:10 Calcium 9.1 mg/dL (8.6-10.3) 12/11/16 00:10 Total Bilirubin 0.5 mg/dL (0.3-1.0) 12/11/16 00:10 AST 15 U/L (13-39) 12/11/16 00:10 ALT 10 U/L (7-52) 12/11/16 00:10 Alkaline Phosphatase 215 U/L (34-104) H 12/11/16 00:10 Troponin I < 0.01 ng/mL (0.01-0.05) L 12/11/16 00:10 Total Protein 6.8 gm/dL (6.0-8.3) 12/11/16 00:10 Albumin 3.9 gm/dL (4.2-5.5) L 12/11/16 00:10 Globulin 2.9 gm/dL 12/11/16 00:10 Albumin/Globulin Ratio 1.3 (1.0-1.8) 12/11/16 00:10 Triglycerides 84 mg/dL (<150) 12/11/16 00:10 Cholesterol 174 mg/dL (<200) 12/11/16 00:10 LDL Cholesterol Direct 101 mg/dL (75-193) 12/11/16 00:10 HDL Cholesterol 61 mg/dL (23-92) 12/11/16 00:10 TSH 0.85 uIU/ml (0.34-5.60) 12/11/16 00:15 RPR NONREACTIVE (NONREACTIVE) 12/11/16 00:10 - Physical Exam Vitals and I&O: Vital Signs Temp 97.6 F 12/15/16 21:11 Pulse 83 12/15/16 21:11 Resp 19 12/15/16 21:11 BP 119/70 12/15/16 21:11 Pulse Ox 97 12/15/16 21:11 Intake & Output 12/15/16 12/16/16 12/16/16 18:59 06:59 18:59 Other: # Voids 1 Active Medications: Current Medications Acetaminophen (Tylenol) 650 mg PO Q4HR PRN PRN Reason: Pain or Fever >101 Stop: 02/09/17 13:34 Last Admin: 12/16/16 08:48 Dose: 650 mg Al Hydrox/Mg Hydrox/Simethicone (Maalox) 30 ml PO Q4HR PRN PRN Reason: GI DISTRESS Stop: 02/09/17 13:34 Last Admin: 12/15/16 08:45 Dose: 30 ml Bisacodyl (Dulcolax 10 Mg Supp) 10 mg RC DAILY PRN PRN Reason: Constipation Stop: 02/09/17 13:34 Dextromethorphan/Quinidine (Nuedexta 20mg-10mg) 1 cap PO Q12HR ELDA Stop: 02/09/17 20:59 Last Admin: 12/16/16 08:14 Dose: Not Given Docusate Sodium (Colace) 100 mg PO DAILY ELDA Stop: 02/10/17 08:59 Last Admin: 12/16/16 08:14 Dose: Not Given Haloperidol (Haldol) 2 mg PO BID PRN; Protocol PRN Reason: Agitation Stop: 02/10/17 10:41 Last Admin: 12/16/16 08:50 Dose: 2 mg Lorazepam (Ativan) 0.5 mg PO Q6HR PRN; Protocol PRN Reason: Agitation Stop: 02/09/17 13:34 Magnesium Hydroxide (Milk Of Magnesia) 30 ml PO DAILY PRN PRN Reason: Constipation Stop: 02/09/17 13:34 Zolpidem Tartrate (Ambien) 5 mg PO HS PRN PRN Reason: Insomnia Stop: 02/09/17 13:34 Last Admin: 12/15/16 21:05 Dose: 5 mg General: alert, NAD HEENT: NC/AT, PERRLA Neck: Supple Lungs: CTAB Cardiovascular: RRR, Normal S1, Normal S2, without murmur Abdomen: soft, non-tender, non-distended, positive bowel sound Extremities: clear Neurological: no change - Procedures Procedures: Procedures Procedure Code Date OTHER GROUP THERAPY 94.44 10/28/14 Internal Medicine Assmt/Plan - Assessment Assessment: DEMENTIA INSOMNIA OA GASTRITIS SCHIZOPHRENIA AHD CAD HTN - Plan Plan: FALL PRECAUTIONS MONITOR BP WILL MONITOR PATIENT CLOSELY. Nutritional Asmnt/Malnutr-PDOC - Dietary Evaluation Malnutrition Findings (Please click <Entered> for more info): Nutritional Asmnt/Malnutrition Start: 12/14/16 14: 08 Text: Status: Complete Freq: Document 12/14/16 14:24 GSUN (Rec: 12/14/16 14:35 GSUN [email or web address]) Nutritional Asmnt/Malnutrition Patient General Information Nutritional Screening Moderate Risk Screening Diagnosis Bipolar Pertinent Medical Hx/Surgical Hx Dementia, insomnia, OA, gastritis, schizophrenia, AHD, CAD, HTN Subjective Information 66 year old male from SNF. Pt was pleasant, alert, talkative , slurred speech slightly difficult to understand. Pt is bedridden, appeared overall thin, minimal fat stores, muscle present, no severe wasting noted. CBW 134.3lb via bedscale, pt weighed 130lb during 10/30 adm this year. Pt is edentulous, no difficulties with chopped. Avg PO intake 92% of meals since adm, meeting nutritional needs. Pt requested for Boost TID wanting to gain/maintain weight, RD agreeable to plan. Current Diet Order/ Nutrition Support [facility] soft chopped. Pertinent Medications Dulcolax, Colace, Haldol, MOM Pertinent Labs Reviewed. Nutritional Hx/Data Height 5 ft 5 in Height (Calculated Centimeters) 165.1 Current Weight (lbs) 134 lb 4.8 oz Weight (Calculated Kilograms) 60.9 Weight (Calculated Grams) 32175.5 [place] Body Weight 136 Weight Status Approriate GI Symptoms Food Allergies No Cultural/Ethnic/Nondenominational Belief Pt likes salad, flores side up eggs. Skin Integrity/Comment: José Miguel 16. Skin intact. Current %PO Good (75-100%) Estimated Nutritional Goals BEE in Kcals: Using Current wt Calories/Kcals/Kg CBW 134.3lb/61kg Kcals Calculated 1525-1830kcal (25-30kcal/kg) Protein: Using Current wt Protein Calculated 61g (1g/kg) Fluid: ml 1525-1830ml (1ml/kcal) Nutritional Problem 1. Problem Problem No nutritional problem at this time. Intervention/Recommendation Comments 1. Continue with cureent diet order. Avg PO intake is adequate. 2. Recommend Boost TID per pt' s request to maintain/gain weight and muscle, pt is overall thin, RD agreeable to plan. Expected Outcomes/Goals Expected Outcomes/Goals 1. PO intake continue to meet at least 75% of estimated nutritional needs.
[2016-12-17] MEDS: Dextromethorphan/Quinidine 20mg/10mg Cap PO SCH ×2 (08:11→21:11)
[2016-12-17] MEDS: Multivitamin w/ Minerals Tab PO SCH (08:11)
--- NOTE | 2016-12-17 09:42 | Psych Progress Note ---
[facility] Progress Note - Intro Date of Progress Note: 12/17/16 - Assessment Assessment: Irritable and agitated. - Vitals, I&O Vitals: Vital Signs - 24 hr 12/16/16 12/17/16 14:00 06:39 Temp 97.6 F 98 F HR 75 76 RR 20 20 BP 110/72 118/68 O2 Sat % 96 98 I&O: Intake & Output 12/15/16 12/16/16 12/17/16 12/18/16 06:59 06:59 06:59 06:59 Intake Total 850 2520 Balance 850 2520 Weight (lbs) 60.917 kg - ROS Psychological ROS: Report: Concentration difficulty, Hostility, Irritability Neurological: Report: Behavorial changes, Impaired Coord/balance - Objective Psych Objective: See below Psych General Appearance: Report: No acute distress, Older than stated age, Casually dressed Psych Behavior: Report: Alert, Uncooperative Psych Speech: Report: Normal in Rate and amount, Loud Psych Mood: Report: Angry, Frustrated, Hostile, Irritable Psych Affect: Report: Constricted, Inappropriate, INC. INTEN Psych Thought Process: Report: Paranoid Psych Cognition: Report: Grossly Intact Psych Insight: Report: Impaired Psych Judgement: Report: Impaired - Plan Plan: Patient has to be given haldol. To continue supportive tx and await placement. - Review of Relevant Data Review of Relevant Data: I have reviewed the following items and time vu (where applicable) has been applied. Psych Data Reviewed: Meds - Medications Current Medications: Current Medications Acetaminophen (Tylenol) 650 mg PO Q4HR PRN PRN Reason: Pain or Fever >101 Stop: 02/09/17 13:34 Last Admin: 12/17/16 08:12 Dose: 650 mg Al Hydrox/Mg Hydrox/Simethicone (Maalox) 30 ml PO Q4HR PRN PRN Reason: GI DISTRESS Stop: 02/09/17 13:34 Last Admin: 12/15/16 08:45 Dose: 30 ml Bisacodyl (Dulcolax 10 Mg Supp) 10 mg RC DAILY PRN PRN Reason: Constipation Stop: 02/09/17 13:34 Dextromethorphan/Quinidine (Nuedexta 20mg-10mg) 1 cap PO Q12HR ELDA Stop: 02/09/17 20:59 Last Admin: 12/17/16 08:11 Dose: 1 cap Docusate Sodium (Colace) 100 mg PO DAILY ELDA Stop: 02/10/17 08:59 Last Admin: 12/17/16 08:11 Dose: 100 mg Haloperidol (Haldol) 2 mg PO BID PRN; Protocol PRN Reason: Agitation Stop: 02/10/17 10:41 Last Admin: 12/16/16 08:50 Dose: 2 mg Lorazepam (Ativan) 0.5 mg PO Q6HR PRN; Protocol PRN Reason: Agitation Stop: 02/09/17 13:34 Last Admin: 12/16/16 20:02 Dose: 0.5 mg Magnesium Hydroxide (Milk Of Magnesia) 30 ml PO DAILY PRN PRN Reason: Constipation Stop: 02/09/17 13:34 Zolpidem Tartrate (Ambien) 5 mg PO HS PRN PRN Reason: Insomnia Stop: 02/09/17 13:34 Last Admin: 12/15/16 21:05 Dose: 5 mg
--- NOTE | 2016-12-17 13:06 | Internal Medicine Prog Note ---
Internal Medicine Subjective - Subjective Service Date: 12/17/16 Patient is:: awake, talking, agitated, confused Per staff patient has:: no adverse event Internal Medicine Objective - Results Result Diagrams: 12/11/16 00:10 12/11/16 00:10 Recent Labs: Laboratory Last Values WBC 8.1 Th/cmm (4.8-10.8) 12/11/16 00:10 RBC 4.58 Mil/cmm (3.80-5.80) 12/11/16 00:10 Hgb 13.7 gm/dL (12.6-17.4) 12/11/16 00:10 Hct 41.8 % (39.0-49.0) 12/11/16 00:10 MCV 91.2 fl (80-99) 12/11/16 00:10 MCH 29.9 pg (27.0-31.0) 12/11/16 00:10 MCHC Differential 32.8 pg (28.0-36.0) 12/11/16 00:10 RDW 13.0 % (11.5-20.0) 12/11/16 00:10 Plt Count 272 Th/cmm (150-400) 12/11/16 00:10 MPV 6.5 fl 12/11/16 00:10 Neutrophils % 58.5 % (40.0-80.0) 12/11/16 00:10 Lymphocytes % 27.6 % (20.0-50.0) 12/11/16 00:10 Monocytes % 8.4 % (2.0-10.0) 12/11/16 00:10 Eosinophils % 1.6 % (0.0-5.0) 12/11/16 00:10 Basophils % 3.9 % (0.0-2.0) H 12/11/16 00:10 PT 9.9 SECONDS (9.5-11.5) 12/11/16 00:10 INR 0.95 (0.5-1.4) 12/11/16 00:10 PTT (Actin FS) 24.7 SECONDS (26.0-38.0) L 12/11/16 00:10 Sodium 129 mEq/L (136-145) L 12/11/16 00:10 Potassium 4.3 mEq/L (3.5-5.1) 12/11/16 00:10 Chloride 99 mEq/L (98-107) 12/11/16 00:10 Carbon Dioxide 29.2 mEq/L (21.0-31.0) 12/11/16 00:10 Anion Gap 5.1 (7.0-16.0) L 12/11/16 00:10 BUN 12 mg/dL (7-25) 12/11/16 00:10 Creatinine 0.4 mg/dL (0.7-1.3) L 12/11/16 00:10 Est GFR ( Amer) > 60.0 ml/min (>90) 12/11/16 00:10 Est GFR (Non-Af Amer) > 60.0 ml/min 12/11/16 00:10 BUN/Creatinine Ratio 30.0 12/11/16 00:10 Glucose 97 mg/dL (70-105) 12/11/16 00:10 Calcium 9.1 mg/dL (8.6-10.3) 12/11/16 00:10 Total Bilirubin 0.5 mg/dL (0.3-1.0) 12/11/16 00:10 AST 15 U/L (13-39) 12/11/16 00:10 ALT 10 U/L (7-52) 12/11/16 00:10 Alkaline Phosphatase 215 U/L (34-104) H 12/11/16 00:10 Troponin I < 0.01 ng/mL (0.01-0.05) L 12/11/16 00:10 Total Protein 6.8 gm/dL (6.0-8.3) 12/11/16 00:10 Albumin 3.9 gm/dL (4.2-5.5) L 12/11/16 00:10 Globulin 2.9 gm/dL 12/11/16 00:10 Albumin/Globulin Ratio 1.3 (1.0-1.8) 12/11/16 00:10 Triglycerides 84 mg/dL (<150) 12/11/16 00:10 Cholesterol 174 mg/dL (<200) 12/11/16 00:10 LDL Cholesterol Direct 101 mg/dL (75-193) 12/11/16 00:10 HDL Cholesterol 61 mg/dL (23-92) 12/11/16 00:10 TSH 0.85 uIU/ml (0.34-5.60) 12/11/16 00:15 RPR NONREACTIVE (NONREACTIVE) 12/11/16 00:10 - Physical Exam Vitals and I&O: Vital Signs Temp 98 F 12/17/16 06:39 Pulse 76 12/17/16 06:39 Resp 20 12/17/16 06:39 BP 118/68 12/17/16 06:39 Pulse Ox 98 12/17/16 06:39 Intake & Output 12/16/16 12/17/16 12/17/16 18:59 06:59 18:59 Intake Total 2400 120 Balance 2400 120 Intake: Oral 2400 120 Other: # Voids 5 3 # Bowel Movements 1 1 Active Medications: Current Medications Acetaminophen (Tylenol) 650 mg PO Q4HR PRN PRN Reason: Pain or Fever >101 Stop: 02/09/17 13:34 Last Admin: 12/17/16 08:12 Dose: 650 mg Al Hydrox/Mg Hydrox/Simethicone (Maalox) 30 ml PO Q4HR PRN PRN Reason: GI DISTRESS Stop: 02/09/17 13:34 Last Admin: 12/15/16 08:45 Dose: 30 ml Bisacodyl (Dulcolax 10 Mg Supp) 10 mg RC DAILY PRN PRN Reason: Constipation Stop: 02/09/17 13:34 Dextromethorphan/Quinidine (Nuedexta 20mg-10mg) 1 cap PO Q12HR ELDA Stop: 02/09/17 20:59 Last Admin: 12/17/16 08:11 Dose: 1 cap Docusate Sodium (Colace) 100 mg PO DAILY ELDA Stop: 02/10/17 08:59 Last Admin: 12/17/16 08:11 Dose: 100 mg Haloperidol (Haldol) 2 mg PO BID PRN; Protocol PRN Reason: Agitation Stop: 02/10/17 10:41 Last Admin: 12/17/16 11:10 Dose: 2 mg Lorazepam (Ativan) 0.5 mg PO Q6HR PRN; Protocol PRN Reason: Agitation Stop: 02/09/17 13:34 Last Admin: 12/17/16 11:10 Dose: 0.5 mg Magnesium Hydroxide (Milk Of Magnesia) 30 ml PO DAILY PRN PRN Reason: Constipation Stop: 02/09/17 13:34 Zolpidem Tartrate (Ambien) 5 mg PO HS PRN PRN Reason: Insomnia Stop: 02/09/17 13:34 Last Admin: 12/15/16 21:05 Dose: 5 mg General: alert, NAD HEENT: NC/AT, PERRLA Neck: Supple Lungs: CTAB Cardiovascular: RRR, Normal S1, Normal S2, without murmur Abdomen: soft, non-tender, non-distended, positive bowel sound Extremities: clear Neurological: no change - Procedures Procedures: Procedures Procedure Code Date OTHER GROUP THERAPY 94.44 10/28/14 Internal Medicine Assmt/Plan - Assessment Assessment: DEMENTIA INSOMNIA OA GASTRITIS SCHIZOPHRENIA AHD CAD HTN - Plan Plan: FALL PRECAUTIONS MONITOR BP WILL MONITOR PATIENT CLOSELY. Nutritional Asmnt/Malnutr-PDOC - Dietary Evaluation Malnutrition Findings (Please click <Entered> for more info): Nutritional Asmnt/Malnutrition Start: 12/14/16 14: 08 Text: Status: Complete Freq: Document 12/14/16 14:24 GSUN (Rec: 12/14/16 14:35 [email or web address] [email or web address]) Nutritional Asmnt/Malnutrition Patient General Information Nutritional Screening Moderate Risk Screening Diagnosis Bipolar Pertinent Medical Hx/Surgical Hx Dementia, insomnia, OA, gastritis, schizophrenia, AHD, CAD, HTN Subjective Information 66 year old male from SNF. Pt was pleasant, alert, talkative , slurred speech slightly difficult to understand. Pt is bedridden, appeared overall thin, minimal fat stores, muscle present, no severe wasting noted. CBW 134.3lb via bedscale, pt weighed 130lb during 10/30 adm this year. Pt is edentulous, no difficulties with chopped. Avg PO intake 92% of meals since adm, meeting nutritional needs. Pt requested for Boost TID wanting to gain/maintain weight, RD agreeable to plan. Current Diet Order/ Nutrition Support [facility] soft chopped. Pertinent Medications Dulcolax, Colace, Haldol, MOM Pertinent Labs Reviewed. Nutritional Hx/Data Height 5 ft 5 in Height (Calculated Centimeters) 165.1 Current Weight (lbs) 134 lb 4.8 oz Weight (Calculated Kilograms) 60.9 Weight (Calculated Grams) 20053.5 [place] Body Weight 136 Weight Status Approriate GI Symptoms Food Allergies No Cultural/Ethnic/Jain Belief Pt likes salad, flores side up eggs. Skin Integrity/Comment: José Miguel 16. Skin intact. Current %PO Good (75-100%) Estimated Nutritional Goals BEE in Kcals: Using Current wt Calories/Kcals/Kg CBW 134.3lb/61kg Kcals Calculated 1525-1830kcal (25-30kcal/kg) Protein: Using Current wt Protein Calculated 61g (1g/kg) Fluid: ml 1525-1830ml (1ml/kcal) Nutritional Problem 1. Problem Problem No nutritional problem at this time. Intervention/Recommendation Comments 1. Continue with cureent diet order. Avg PO intake is adequate. 2. Recommend Boost TID per pt' s request to maintain/gain weight and muscle, pt is overall thin, RD agreeable to plan. Expected Outcomes/Goals Expected Outcomes/Goals 1. PO intake continue to meet at least 75% of estimated nutritional needs.
[2016-12-18] MEDS: Dextromethorphan/Quinidine 20mg/10mg Cap PO SCH ×2 (08:36→20:55)
[2016-12-18] MEDS: Multivitamin w/ Minerals Tab PO SCH (08:36)
--- NOTE | 2016-12-18 14:47 | Internal Medicine Prog Note ---
Internal Medicine Subjective - Subjective Service Date: 12/18/16 Patient is:: awake, talking, agitated, confused Per staff patient has:: no adverse event Internal Medicine Objective - Results Result Diagrams: 12/11/16 00:10 12/11/16 00:10 Recent Labs: Laboratory Last Values WBC 8.1 Th/cmm (4.8-10.8) 12/11/16 00:10 RBC 4.58 Mil/cmm (3.80-5.80) 12/11/16 00:10 Hgb 13.7 gm/dL (12.6-17.4) 12/11/16 00:10 Hct 41.8 % (39.0-49.0) 12/11/16 00:10 MCV 91.2 fl (80-99) 12/11/16 00:10 MCH 29.9 pg (27.0-31.0) 12/11/16 00:10 MCHC Differential 32.8 pg (28.0-36.0) 12/11/16 00:10 RDW 13.0 % (11.5-20.0) 12/11/16 00:10 Plt Count 272 Th/cmm (150-400) 12/11/16 00:10 MPV 6.5 fl 12/11/16 00:10 Neutrophils % 58.5 % (40.0-80.0) 12/11/16 00:10 Lymphocytes % 27.6 % (20.0-50.0) 12/11/16 00:10 Monocytes % 8.4 % (2.0-10.0) 12/11/16 00:10 Eosinophils % 1.6 % (0.0-5.0) 12/11/16 00:10 Basophils % 3.9 % (0.0-2.0) H 12/11/16 00:10 PT 9.9 SECONDS (9.5-11.5) 12/11/16 00:10 INR 0.95 (0.5-1.4) 12/11/16 00:10 PTT (Actin FS) 24.7 SECONDS (26.0-38.0) L 12/11/16 00:10 Sodium 129 mEq/L (136-145) L 12/11/16 00:10 Potassium 4.3 mEq/L (3.5-5.1) 12/11/16 00:10 Chloride 99 mEq/L (98-107) 12/11/16 00:10 Carbon Dioxide 29.2 mEq/L (21.0-31.0) 12/11/16 00:10 Anion Gap 5.1 (7.0-16.0) L 12/11/16 00:10 BUN 12 mg/dL (7-25) 12/11/16 00:10 Creatinine 0.4 mg/dL (0.7-1.3) L 12/11/16 00:10 Est GFR ( Amer) > 60.0 ml/min (>90) 12/11/16 00:10 Est GFR (Non-Af Amer) > 60.0 ml/min 12/11/16 00:10 BUN/Creatinine Ratio 30.0 12/11/16 00:10 Glucose 97 mg/dL (70-105) 12/11/16 00:10 Calcium 9.1 mg/dL (8.6-10.3) 12/11/16 00:10 Total Bilirubin 0.5 mg/dL (0.3-1.0) 12/11/16 00:10 AST 15 U/L (13-39) 12/11/16 00:10 ALT 10 U/L (7-52) 12/11/16 00:10 Alkaline Phosphatase 215 U/L (34-104) H 12/11/16 00:10 Troponin I < 0.01 ng/mL (0.01-0.05) L 12/11/16 00:10 Total Protein 6.8 gm/dL (6.0-8.3) 12/11/16 00:10 Albumin 3.9 gm/dL (4.2-5.5) L 12/11/16 00:10 Globulin 2.9 gm/dL 12/11/16 00:10 Albumin/Globulin Ratio 1.3 (1.0-1.8) 12/11/16 00:10 Triglycerides 84 mg/dL (<150) 12/11/16 00:10 Cholesterol 174 mg/dL (<200) 12/11/16 00:10 LDL Cholesterol Direct 101 mg/dL (75-193) 12/11/16 00:10 HDL Cholesterol 61 mg/dL (23-92) 12/11/16 00:10 TSH 0.85 uIU/ml (0.34-5.60) 12/11/16 00:15 RPR NONREACTIVE (NONREACTIVE) 12/11/16 00:10 - Physical Exam Vitals and I&O: Vital Signs Temp 98.0 F 12/18/16 06:02 Pulse 73 12/18/16 06:02 Resp 19 12/18/16 06:02 BP 130/70 12/18/16 06:02 Pulse Ox 97 12/18/16 06:02 Intake & Output 12/17/16 12/18/16 12/18/16 18:59 06:59 18:59 Intake Total 900 120 Balance 900 120 Intake: Oral 900 120 Other: # Voids 5 2 # Bowel Movements 3 1 Active Medications: Current Medications Acetaminophen (Tylenol) 650 mg PO Q4HR PRN PRN Reason: Pain or Fever >101 Stop: 02/09/17 13:34 Last Admin: 12/18/16 13:23 Dose: 650 mg Al Hydrox/Mg Hydrox/Simethicone (Maalox) 30 ml PO Q4HR PRN PRN Reason: GI DISTRESS Stop: 02/09/17 13:34 Last Admin: 12/15/16 08:45 Dose: 30 ml Bisacodyl (Dulcolax 10 Mg Supp) 10 mg RC DAILY PRN PRN Reason: Constipation Stop: 02/09/17 13:34 Dextromethorphan/Quinidine (Nuedexta 20mg-10mg) 1 cap PO Q12HR ELDA Stop: 02/09/17 20:59 Last Admin: 12/18/16 08:36 Dose: 1 cap Docusate Sodium (Colace) 100 mg PO DAILY ELDA Stop: 02/10/17 08:59 Last Admin: 12/18/16 08:37 Dose: 100 mg Haloperidol (Haldol) 2 mg PO BID PRN; Protocol PRN Reason: Agitation Stop: 02/10/17 10:41 Last Admin: 12/18/16 08:36 Dose: 2 mg Lorazepam (Ativan) 0.5 mg PO Q6HR PRN; Protocol PRN Reason: Agitation Stop: 02/09/17 13:34 Last Admin: 12/17/16 21:11 Dose: 0.5 mg Magnesium Hydroxide (Milk Of Magnesia) 30 ml PO DAILY PRN PRN Reason: Constipation Stop: 02/09/17 13:34 Zolpidem Tartrate (Ambien) 5 mg PO HS PRN PRN Reason: Insomnia Stop: 02/09/17 13:34 Last Admin: 12/15/16 21:05 Dose: 5 mg General: alert, NAD HEENT: NC/AT, PERRLA Neck: Supple Lungs: CTAB Cardiovascular: RRR, Normal S1, Normal S2, without murmur Abdomen: soft, non-tender, non-distended, positive bowel sound Extremities: clear Neurological: no change - Procedures Procedures: Procedures Procedure Code Date OTHER GROUP THERAPY 94.44 10/28/14 Internal Medicine Assmt/Plan - Assessment Assessment: DEMENTIA INSOMNIA OA GASTRITIS SCHIZOPHRENIA AHD CAD HTN - Plan Plan: FALL PRECAUTIONS MONITOR BP WILL MONITOR PATIENT CLOSELY. Nutritional Asmnt/Malnutr-PDOC - Dietary Evaluation Malnutrition Findings (Please click <Entered> for more info): Nutritional Asmnt/Malnutrition Start: 12/14/16 14: 08 Text: Status: Complete Freq: Document 12/14/16 14:24 GSUN (Rec: 12/14/16 14:35 [email or web address] [email or web address]) Nutritional Asmnt/Malnutrition Patient General Information Nutritional Screening Moderate Risk Screening Diagnosis Bipolar Pertinent Medical Hx/Surgical Hx Dementia, insomnia, OA, gastritis, schizophrenia, AHD, CAD, HTN Subjective Information 66 year old male from SNF. Pt was pleasant, alert, talkative , slurred speech slightly difficult to understand. Pt is bedridden, appeared overall thin, minimal fat stores, muscle present, no severe wasting noted. CBW 134.3lb via bedscale, pt weighed 130lb during 10/30 adm this year. Pt is edentulous, no difficulties with chopped. Avg PO intake 92% of meals since adm, meeting nutritional needs. Pt requested for Boost TID wanting to gain/maintain weight, RD agreeable to plan. Current Diet Order/ Nutrition Support [facility] soft chopped. Pertinent Medications Dulcolax, Colace, Haldol, MOM Pertinent Labs Reviewed. Nutritional Hx/Data Height 5 ft 5 in Height (Calculated Centimeters) 165.1 Current Weight (lbs) 134 lb 4.8 oz Weight (Calculated Kilograms) 60.9 Weight (Calculated Grams) 69766.5 [place] Body Weight 136 Weight Status Approriate GI Symptoms Food Allergies No Cultural/Ethnic/Scientologist Belief Pt likes salad, flores side up eggs. Skin Integrity/Comment: José Miguel 16. Skin intact. Current %PO Good (75-100%) Estimated Nutritional Goals BEE in Kcals: Using Current wt Calories/Kcals/Kg CBW 134.3lb/61kg Kcals Calculated 1525-1830kcal (25-30kcal/kg) Protein: Using Current wt Protein Calculated 61g (1g/kg) Fluid: ml 1525-1830ml (1ml/kcal) Nutritional Problem 1. Problem Problem No nutritional problem at this time. Intervention/Recommendation Comments 1. Continue with cureent diet order. Avg PO intake is adequate. 2. Recommend Boost TID per pt' s request to maintain/gain weight and muscle, pt is overall thin, RD agreeable to plan. Expected Outcomes/Goals Expected Outcomes/Goals 1. PO intake continue to meet at least 75% of estimated nutritional needs.
--- NOTE | 2016-12-18 18:37 | Psych Progress Note ---
Psych Progress Note - Intro Date of Progress Note: 12/18/16 - Assessment Assessment: Irritable and agitated. - Vitals, I&O Vitals: Vital Signs - 24 hr 12/17/16 12/18/16 12/18/16 21:00 06:02 16:08 Temp 97.6 F 98.0 F 98.1 F HR 76 73 76 RR 19 19 20 BP 120/72 130/70 138/80 O2 Sat % 94 97 97 I&O: Intake & Output 12/16/16 12/17/16 12/18/16 12/19/16 06:59 06:59 06:59 06:59 Intake Total 2520 1020 900 Balance 2520 1020 900 - ROS Psychological ROS: Report: Hostility, Mood swings Neurological: Report: Behavorial changes, Memory Loss - Objective Psych Objective: See below Psych General Appearance: Report: No acute distress, Casually dressed Psych Behavior: Report: Alert, Uncooperative Psych Speech: Report: Normal in Rate and amount, Loud Psych Mood: Report: Angry, Frustrated, Hostile Psych Affect: Report: Constricted, Inappropriate, INC. INTEN Psych Thought Process: Report: Paranoid Psych Cognition: Report: Grossly Intact Psych Insight: Report: Impaired Psych Judgement: Report: Impaired - Plan Plan: Patient has to be given haldol. To continue supportive tx and await placement. - Review of Relevant Data Review of Relevant Data: I have reviewed the following items and time vu (where applicable) has been applied. Psych Data Reviewed: Meds - Medications Current Medications: Current Medications Acetaminophen (Tylenol) 650 mg PO Q4HR PRN PRN Reason: Pain or Fever >101 Stop: 02/09/17 13:34 Last Admin: 12/18/16 13:23 Dose: 650 mg Al Hydrox/Mg Hydrox/Simethicone (Maalox) 30 ml PO Q4HR PRN PRN Reason: GI DISTRESS Stop: 02/09/17 13:34 Last Admin: 12/15/16 08:45 Dose: 30 ml Bisacodyl (Dulcolax 10 Mg Supp) 10 mg RC DAILY PRN PRN Reason: Constipation Stop: 02/09/17 13:34 Dextromethorphan/Quinidine (Nuedexta 20mg-10mg) 1 cap PO Q12HR ELDA Stop: 02/09/17 20:59 Last Admin: 12/18/16 08:36 Dose: 1 cap Docusate Sodium (Colace) 100 mg PO DAILY ELDA Stop: 02/10/17 08:59 Last Admin: 12/18/16 08:37 Dose: 100 mg Haloperidol (Haldol) 2 mg PO BID PRN; Protocol PRN Reason: Agitation Stop: 02/10/17 10:41 Last Admin: 12/18/16 08:36 Dose: 2 mg Lorazepam (Ativan) 0.5 mg PO Q6HR PRN; Protocol PRN Reason: Agitation Stop: 02/09/17 13:34 Last Admin: 12/17/16 21:11 Dose: 0.5 mg Magnesium Hydroxide (Milk Of Magnesia) 30 ml PO DAILY PRN PRN Reason: Constipation Stop: 02/09/17 13:34 Zolpidem Tartrate (Ambien) 5 mg PO HS PRN PRN Reason: Insomnia Stop: 02/09/17 13:34 Last Admin: 12/15/16 21:05 Dose: 5 mg
[2016-12-19] MEDS: Multivitamin w/ Minerals Tab PO SCH (08:51)
[2016-12-19] MEDS: Dextromethorphan/Quinidine 20mg/10mg Cap PO SCH ×3 (08:51→20:19)
--- NOTE | 2016-12-19 12:49 | Internal Medicine Prog Note ---
Internal Medicine Subjective - Subjective Service Date: 12/19/16 Patient seen and examined:: with staff Patient is:: awake, talking, agitated, confused Per staff patient has:: no adverse event Internal Medicine Objective - Results Result Diagrams: 12/11/16 00:10 12/11/16 00:10 Recent Labs: Laboratory Last Values WBC 8.1 Th/cmm (4.8-10.8) 12/11/16 00:10 RBC 4.58 Mil/cmm (3.80-5.80) 12/11/16 00:10 Hgb 13.7 gm/dL (12.6-17.4) 12/11/16 00:10 Hct 41.8 % (39.0-49.0) 12/11/16 00:10 MCV 91.2 fl (80-99) 12/11/16 00:10 MCH 29.9 pg (27.0-31.0) 12/11/16 00:10 MCHC Differential 32.8 pg (28.0-36.0) 12/11/16 00:10 RDW 13.0 % (11.5-20.0) 12/11/16 00:10 Plt Count 272 Th/cmm (150-400) 12/11/16 00:10 MPV 6.5 fl 12/11/16 00:10 Neutrophils % 58.5 % (40.0-80.0) 12/11/16 00:10 Lymphocytes % 27.6 % (20.0-50.0) 12/11/16 00:10 Monocytes % 8.4 % (2.0-10.0) 12/11/16 00:10 Eosinophils % 1.6 % (0.0-5.0) 12/11/16 00:10 Basophils % 3.9 % (0.0-2.0) H 12/11/16 00:10 PT 9.9 SECONDS (9.5-11.5) 12/11/16 00:10 INR 0.95 (0.5-1.4) 12/11/16 00:10 PTT (Actin FS) 24.7 SECONDS (26.0-38.0) L 12/11/16 00:10 Sodium 129 mEq/L (136-145) L 12/11/16 00:10 Potassium 4.3 mEq/L (3.5-5.1) 12/11/16 00:10 Chloride 99 mEq/L (98-107) 12/11/16 00:10 Carbon Dioxide 29.2 mEq/L (21.0-31.0) 12/11/16 00:10 Anion Gap 5.1 (7.0-16.0) L 12/11/16 00:10 BUN 12 mg/dL (7-25) 12/11/16 00:10 Creatinine 0.4 mg/dL (0.7-1.3) L 12/11/16 00:10 Est GFR ( Amer) > 60.0 ml/min (>90) 12/11/16 00:10 Est GFR (Non-Af Amer) > 60.0 ml/min 12/11/16 00:10 BUN/Creatinine Ratio 30.0 12/11/16 00:10 Glucose 97 mg/dL (70-105) 12/11/16 00:10 Calcium 9.1 mg/dL (8.6-10.3) 12/11/16 00:10 Total Bilirubin 0.5 mg/dL (0.3-1.0) 12/11/16 00:10 AST 15 U/L (13-39) 12/11/16 00:10 ALT 10 U/L (7-52) 12/11/16 00:10 Alkaline Phosphatase 215 U/L (34-104) H 12/11/16 00:10 Troponin I < 0.01 ng/mL (0.01-0.05) L 12/11/16 00:10 Total Protein 6.8 gm/dL (6.0-8.3) 12/11/16 00:10 Albumin 3.9 gm/dL (4.2-5.5) L 12/11/16 00:10 Globulin 2.9 gm/dL 12/11/16 00:10 Albumin/Globulin Ratio 1.3 (1.0-1.8) 12/11/16 00:10 Triglycerides 84 mg/dL (<150) 12/11/16 00:10 Cholesterol 174 mg/dL (<200) 12/11/16 00:10 LDL Cholesterol Direct 101 mg/dL (75-193) 12/11/16 00:10 HDL Cholesterol 61 mg/dL (23-92) 12/11/16 00:10 TSH 0.85 uIU/ml (0.34-5.60) 12/11/16 00:15 RPR NONREACTIVE (NONREACTIVE) 12/11/16 00:10 - Physical Exam Vitals and I&O: Vital Signs Temp 98.0 F 12/18/16 20:28 Pulse 77 12/18/16 20:28 Resp 20 12/18/16 20:28 BP 138/78 12/18/16 20:28 Pulse Ox 97 12/18/16 20:28 Intake & Output 12/18/16 12/19/16 12/19/16 18:59 06:59 18:59 Intake Total 900 120 Balance 900 120 Intake: Oral 900 120 Other: # Voids 5 2 # Bowel Movements 2 1 Active Medications: Current Medications Acetaminophen (Tylenol) 650 mg PO Q4HR PRN PRN Reason: Pain or Fever >101 Stop: 02/09/17 13:34 Last Admin: 12/19/16 08:51 Dose: 650 mg Al Hydrox/Mg Hydrox/Simethicone (Maalox) 30 ml PO Q4HR PRN PRN Reason: GI DISTRESS Stop: 02/09/17 13:34 Last Admin: 12/15/16 08:45 Dose: 30 ml Bisacodyl (Dulcolax 10 Mg Supp) 10 mg RC DAILY PRN PRN Reason: Constipation Stop: 02/09/17 13:34 Dextromethorphan/Quinidine (Nuedexta 20mg-10mg) 1 cap PO Q12HR ELDA Stop: 02/09/17 20:59 Last Admin: 12/19/16 09:01 Dose: Not Given Docusate Sodium (Colace) 100 mg PO DAILY ELDA Stop: 02/10/17 08:59 Last Admin: 12/19/16 08:51 Dose: 100 mg Haloperidol (Haldol) 2 mg PO BID PRN; Protocol PRN Reason: Agitation Stop: 02/10/17 10:41 Last Admin: 12/18/16 20:55 Dose: 2 mg Lorazepam (Ativan) 0.5 mg PO Q6HR PRN; Protocol PRN Reason: Agitation Stop: 02/09/17 13:34 Last Admin: 12/18/16 20:55 Dose: 0.5 mg Magnesium Hydroxide (Milk Of Magnesia) 30 ml PO DAILY PRN PRN Reason: Constipation Stop: 02/09/17 13:34 Zolpidem Tartrate (Ambien) 5 mg PO HS PRN PRN Reason: Insomnia Stop: 02/09/17 13:34 Last Admin: 12/15/16 21:05 Dose: 5 mg General: alert, NAD HEENT: NC/AT, PERRLA Neck: Supple Lungs: CTAB Cardiovascular: RRR, Normal S1, Normal S2, without murmur Abdomen: soft, non-tender, non-distended, positive bowel sound Extremities: clear Neurological: no change - Procedures Procedures: Procedures Procedure Code Date OTHER GROUP THERAPY 94.44 10/28/14 Internal Medicine Assmt/Plan - Assessment Assessment: DEMENTIA INSOMNIA OA GASTRITIS SCHIZOPHRENIA AHD CAD HTN - Plan Plan: FALL PRECAUTIONS MONITOR BP WILL MONITOR PATIENT CLOSELY. Nutritional Asmnt/Malnutr-PDOC - Dietary Evaluation Malnutrition Findings (Please click <Entered> for more info): Nutritional Asmnt/Malnutrition Start: 12/14/16 14: 08 Text: Status: Complete Freq: Document 12/14/16 14:24 GSUN (Rec: 12/14/16 14:35 GSUN [email or web address]) Nutritional Asmnt/Malnutrition Patient General Information Nutritional Screening Moderate Risk Screening Diagnosis Bipolar Pertinent Medical Hx/Surgical Hx Dementia, insomnia, OA, gastritis, schizophrenia, AHD, CAD, HTN Subjective Information 66 year old male from SNF. Pt was pleasant, alert, talkative , slurred speech slightly difficult to understand. Pt is bedridden, appeared overall thin, minimal fat stores, muscle present, no severe wasting noted. CBW 134.3lb via bedscale, pt weighed 130lb during 10/30 adm this year. Pt is edentulous, no difficulties with chopped. Avg PO intake 92% of meals since adm, meeting nutritional needs. Pt requested for Boost TID wanting to gain/maintain weight, RD agreeable to plan. Current Diet Order/ Nutrition Support [facility] soft chopped. Pertinent Medications Dulcolax, Colace, Haldol, MOM Pertinent Labs Reviewed. Nutritional Hx/Data Height 5 ft 5 in Height (Calculated Centimeters) 165.1 Current Weight (lbs) 134 lb 4.8 oz Weight (Calculated Kilograms) 60.9 Weight (Calculated Grams) 33681.5 [place] Body Weight 136 Weight Status Approriate GI Symptoms Food Allergies No Cultural/Ethnic/Uatsdin Belief Pt likes salad, flores side up eggs. Skin Integrity/Comment: José Miguel 16. Skin intact. Current %PO Good (75-100%) Estimated Nutritional Goals BEE in Kcals: Using Current wt Calories/Kcals/Kg CBW 134.3lb/61kg Kcals Calculated 1525-1830kcal (25-30kcal/kg) Protein: Using Current wt Protein Calculated 61g (1g/kg) Fluid: ml 1525-1830ml (1ml/kcal) Nutritional Problem 1. Problem Problem No nutritional problem at this time. Intervention/Recommendation Comments 1. Continue with cureent diet order. Avg PO intake is adequate. 2. Recommend Boost TID per pt' s request to maintain/gain weight and muscle, pt is overall thin, RD agreeable to plan. Expected Outcomes/Goals Expected Outcomes/Goals 1. PO intake continue to meet at least 75% of estimated nutritional needs.
--- NOTE | 2016-12-19 19:30 | Psych Progress Note ---
Psych Progress Note - Intro Date of Progress Note: 12/19/16 - Assessment Assessment: Irritable and agitated. Reports that he does not need any meds. - Vitals, I&O Vitals: Vital Signs - 24 hr 12/18/16 20:28 Temp 98.0 F HR 77 RR 20 BP 138/78 O2 Sat % 97 I&O: Intake & Output 12/17/16 12/18/16 12/19/16 12/20/16 06:59 06:59 06:59 06:59 Intake Total 2520 1020 1020 1000 Balance 2520 1020 1020 1000 - ROS Psychological ROS: Report: Hostility, Mood swings Neurological: Report: Behavorial changes, Memory Loss - Objective Psych Objective: See below Psych General Appearance: Report: No acute distress, Disheveled Psych Behavior: Report: Alert, Uncooperative Psych Speech: Report: Normal in Rate and amount, Loud Psych Mood: Report: Angry, Frustrated Psych Affect: Report: Inappropriate, Varibable Psych Thought Process: Report: Paranoid Psych Cognition: Report: Grossly Intact Psych Insight: Report: Impaired Psych Judgement: Report: Impaired - Plan Plan: Patient has to be given haldol. To continue supportive tx and await placement. - Review of Relevant Data Review of Relevant Data: I have reviewed the following items and time vu (where applicable) has been applied. Psych Data Reviewed: Meds - Medications Current Medications: Current Medications Acetaminophen (Tylenol) 650 mg PO Q4HR PRN PRN Reason: Pain or Fever >101 Stop: 02/09/17 13:34 Last Admin: 12/19/16 08:51 Dose: 650 mg Al Hydrox/Mg Hydrox/Simethicone (Maalox) 30 ml PO Q4HR PRN PRN Reason: GI DISTRESS Stop: 02/09/17 13:34 Last Admin: 12/15/16 08:45 Dose: 30 ml Bisacodyl (Dulcolax 10 Mg Supp) 10 mg RC DAILY PRN PRN Reason: Constipation Stop: 02/09/17 13:34 Dextromethorphan/Quinidine (Nuedexta 20mg-10mg) 1 cap PO Q12HR ELDA Stop: 02/09/17 20:59 Last Admin: 12/19/16 09:01 Dose: Not Given Docusate Sodium (Colace) 100 mg PO DAILY [facility] Stop: 02/10/17 08:59 Last Admin: 12/19/16 08:51 Dose: 100 mg Haloperidol (Haldol) 2 mg PO BID PRN; Protocol PRN Reason: Agitation Stop: 02/10/17 10:41 Last Admin: 12/18/16 20:55 Dose: 2 mg Lorazepam (Ativan) 0.5 mg PO Q6HR PRN; Protocol PRN Reason: Agitation Stop: 02/09/17 13:34 Last Admin: 12/18/16 20:55 Dose: 0.5 mg Magnesium Hydroxide (Milk Of Magnesia) 30 ml PO DAILY PRN PRN Reason: Constipation Stop: 02/09/17 13:34 Zolpidem Tartrate (Ambien) 5 mg PO HS PRN PRN Reason: Insomnia Stop: 02/09/17 13:34 Last Admin: 12/15/16 21:05 Dose: 5 mg
[2016-12-20] MEDS: Dextromethorphan/Quinidine 20mg/10mg Cap PO SCH ×2 (09:01→20:25)
--- NOTE | 2016-12-20 12:04 | Psych Progress Note ---
Psych Progress Note - Intro Date of Progress Note: 12/20/16 - Assessment Assessment: Irritable and agitated. Reports that he does not need any meds. - Vitals, I&O Vitals: Vital Signs - 24 hr 12/20/16 07:16 Temp 97.8 F HR 82 RR 18 BP 127/72 O2 Sat % 97 I&O: Intake & Output 12/18/16 12/19/16 12/20/16 12/21/16 06:59 06:59 06:59 06:59 Intake Total 1020 1020 1000 Balance 1020 1020 1000 - ROS Psychological ROS: Report: Hostility, Mood swings Neurological: Report: Behavorial changes, Memory Loss - Objective Psych Objective: See below Psych General Appearance: Report: No acute distress, Disheveled Psych Behavior: Report: Alert, Uncooperative Psych Speech: Report: Normal in Rate and amount, Loud Psych Mood: Report: Angry, Frustrated Psych Affect: Report: Inappropriate, Varibable Psych Thought Process: Report: Paranoid Psych Cognition: Report: Grossly Intact Psych Insight: Report: Impaired Psych Judgement: Report: Impaired - Plan Plan: Patient has to be given haldol. To continue supportive tx and await placement. - Review of Relevant Data Review of Relevant Data: I have reviewed the following items and time vu (where applicable) has been applied. - Diagnosis Diagnosis: Schizo affective disorder. - Medications Current Medications: Current Medications Acetaminophen (Tylenol) 650 mg PO Q4HR PRN PRN Reason: Pain or Fever >101 Stop: 02/09/17 13:34 Last Admin: 12/20/16 09:01 Dose: 650 mg Al Hydrox/Mg Hydrox/Simethicone (Maalox) 30 ml PO Q4HR PRN PRN Reason: GI DISTRESS Stop: 02/09/17 13:34 Last Admin: 12/15/16 08:45 Dose: 30 ml Bisacodyl (Dulcolax 10 Mg Supp) 10 mg RC DAILY PRN PRN Reason: Constipation Stop: 02/09/17 13:34 Dextromethorphan/Quinidine (Nuedexta 20mg-10mg) 1 cap PO Q12HR ELDA Stop: 02/09/17 20:59 Last Admin: 12/20/16 09:01 Dose: 1 cap Docusate Sodium (Colace) 100 mg PO DAILY ELDA Stop: 02/10/17 08:59 Last Admin: 12/19/16 08:51 Dose: 100 mg Haloperidol (Haldol) 2 mg PO BID PRN; Protocol PRN Reason: Agitation Stop: 02/10/17 10:41 Last Admin: 12/18/16 20:55 Dose: 2 mg Lorazepam (Ativan) 0.5 mg PO Q6HR PRN; Protocol PRN Reason: Agitation Stop: 02/09/17 13:34 Last Admin: 12/20/16 09:00 Dose: 0.5 mg Magnesium Hydroxide (Milk Of Magnesia) 30 ml PO DAILY PRN PRN Reason: Constipation Stop: 02/09/17 13:34 Zolpidem Tartrate (Ambien) 5 mg PO HS PRN PRN Reason: Insomnia Stop: 02/09/17 13:34 Last Admin: 12/15/16 21:05 Dose: 5 mg
--- NOTE | 2016-12-20 12:27 | Internal Medicine Prog Note ---
Internal Medicine Subjective - Subjective Service Date: 12/20/16 Patient is:: awake, talking, agitated, confused Per staff patient has:: no adverse event Internal Medicine Objective - Results Result Diagrams: 12/11/16 00:10 12/11/16 00:10 Recent Labs: Laboratory Last Values WBC 8.1 Th/cmm (4.8-10.8) 12/11/16 00:10 RBC 4.58 Mil/cmm (3.80-5.80) 12/11/16 00:10 Hgb 13.7 gm/dL (12.6-17.4) 12/11/16 00:10 Hct 41.8 % (39.0-49.0) 12/11/16 00:10 MCV 91.2 fl (80-99) 12/11/16 00:10 MCH 29.9 pg (27.0-31.0) 12/11/16 00:10 MCHC Differential 32.8 pg (28.0-36.0) 12/11/16 00:10 RDW 13.0 % (11.5-20.0) 12/11/16 00:10 Plt Count 272 Th/cmm (150-400) 12/11/16 00:10 MPV 6.5 fl 12/11/16 00:10 Neutrophils % 58.5 % (40.0-80.0) 12/11/16 00:10 Lymphocytes % 27.6 % (20.0-50.0) 12/11/16 00:10 Monocytes % 8.4 % (2.0-10.0) 12/11/16 00:10 Eosinophils % 1.6 % (0.0-5.0) 12/11/16 00:10 Basophils % 3.9 % (0.0-2.0) H 12/11/16 00:10 PT 9.9 SECONDS (9.5-11.5) 12/11/16 00:10 INR 0.95 (0.5-1.4) 12/11/16 00:10 PTT (Actin FS) 24.7 SECONDS (26.0-38.0) L 12/11/16 00:10 Sodium 129 mEq/L (136-145) L 12/11/16 00:10 Potassium 4.3 mEq/L (3.5-5.1) 12/11/16 00:10 Chloride 99 mEq/L (98-107) 12/11/16 00:10 Carbon Dioxide 29.2 mEq/L (21.0-31.0) 12/11/16 00:10 Anion Gap 5.1 (7.0-16.0) L 12/11/16 00:10 BUN 12 mg/dL (7-25) 12/11/16 00:10 Creatinine 0.4 mg/dL (0.7-1.3) L 12/11/16 00:10 Est GFR ( Amer) > 60.0 ml/min (>90) 12/11/16 00:10 Est GFR (Non-Af Amer) > 60.0 ml/min 12/11/16 00:10 BUN/Creatinine Ratio 30.0 12/11/16 00:10 Glucose 97 mg/dL (70-105) 12/11/16 00:10 Calcium 9.1 mg/dL (8.6-10.3) 12/11/16 00:10 Total Bilirubin 0.5 mg/dL (0.3-1.0) 12/11/16 00:10 AST 15 U/L (13-39) 12/11/16 00:10 ALT 10 U/L (7-52) 12/11/16 00:10 Alkaline Phosphatase 215 U/L (34-104) H 12/11/16 00:10 Troponin I < 0.01 ng/mL (0.01-0.05) L 12/11/16 00:10 Total Protein 6.8 gm/dL (6.0-8.3) 12/11/16 00:10 Albumin 3.9 gm/dL (4.2-5.5) L 12/11/16 00:10 Globulin 2.9 gm/dL 12/11/16 00:10 Albumin/Globulin Ratio 1.3 (1.0-1.8) 12/11/16 00:10 Triglycerides 84 mg/dL (<150) 12/11/16 00:10 Cholesterol 174 mg/dL (<200) 12/11/16 00:10 LDL Cholesterol Direct 101 mg/dL (75-193) 12/11/16 00:10 HDL Cholesterol 61 mg/dL (23-92) 12/11/16 00:10 TSH 0.85 uIU/ml (0.34-5.60) 12/11/16 00:15 RPR NONREACTIVE (NONREACTIVE) 12/11/16 00:10 - Physical Exam Vitals and I&O: Vital Signs Temp 97.8 F 12/20/16 07:16 Pulse 82 12/20/16 07:16 Resp 18 12/20/16 07:16 BP 127/72 12/20/16 07:16 Pulse Ox 97 12/20/16 07:16 Intake & Output 12/19/16 12/20/16 12/20/16 18:59 06:59 18:59 Intake Total 1000 Balance 1000 Intake: Oral 1000 Other: # Voids 4 1 # Bowel Movements 1 Active Medications: Current Medications Acetaminophen (Tylenol) 650 mg PO Q4HR PRN PRN Reason: Pain or Fever >101 Stop: 02/09/17 13:34 Last Admin: 12/20/16 09:01 Dose: 650 mg Al Hydrox/Mg Hydrox/Simethicone (Maalox) 30 ml PO Q4HR PRN PRN Reason: GI DISTRESS Stop: 02/09/17 13:34 Last Admin: 12/15/16 08:45 Dose: 30 ml Bisacodyl (Dulcolax 10 Mg Supp) 10 mg RC DAILY PRN PRN Reason: Constipation Stop: 02/09/17 13:34 Dextromethorphan/Quinidine (Nuedexta 20mg-10mg) 1 cap PO Q12HR ELDA Stop: 02/09/17 20:59 Last Admin: 12/20/16 09:01 Dose: 1 cap Docusate Sodium (Colace) 100 mg PO DAILY ELDA Stop: 02/10/17 08:59 Last Admin: 12/19/16 08:51 Dose: 100 mg Haloperidol (Haldol) 2 mg PO BID PRN; Protocol PRN Reason: Agitation Stop: 02/10/17 10:41 Last Admin: 12/18/16 20:55 Dose: 2 mg Lorazepam (Ativan) 0.5 mg PO Q6HR PRN; Protocol PRN Reason: Agitation Stop: 02/09/17 13:34 Last Admin: 12/20/16 09:00 Dose: 0.5 mg Magnesium Hydroxide (Milk Of Magnesia) 30 ml PO DAILY PRN PRN Reason: Constipation Stop: 02/09/17 13:34 Zolpidem Tartrate (Ambien) 5 mg PO HS PRN PRN Reason: Insomnia Stop: 02/09/17 13:34 Last Admin: 12/15/16 21:05 Dose: 5 mg General: alert, NAD HEENT: NC/AT, PERRLA Neck: Supple Lungs: CTAB Cardiovascular: RRR, Normal S1, Normal S2, without murmur Abdomen: soft, non-tender, non-distended, positive bowel sound Extremities: clear Neurological: no change - Procedures Procedures: Procedures Procedure Code Date OTHER GROUP THERAPY 94.44 10/28/14 Internal Medicine Assmt/Plan - Assessment Assessment: DEMENTIA INSOMNIA OA GASTRITIS SCHIZOPHRENIA AHD CAD HTN - Plan Plan: FALL PRECAUTIONS MONITOR BP WILL MONITOR PATIENT CLOSELY. Nutritional Asmnt/Malnutr-PDOC - Dietary Evaluation Malnutrition Findings (Please click <Entered> for more info): Nutritional Asmnt/Malnutrition Start: 12/14/16 14: 08 Text: Status: Complete Freq: Document 12/14/16 14:24 GSUN (Rec: 12/14/16 14:35 GSUN [email or web address]) Nutritional Asmnt/Malnutrition Patient General Information Nutritional Screening Moderate Risk Screening Diagnosis Bipolar Pertinent Medical Hx/Surgical Hx Dementia, insomnia, OA, gastritis, schizophrenia, AHD, CAD, HTN Subjective Information 66 year old male from SNF. Pt was pleasant, alert, talkative , slurred speech slightly difficult to understand. Pt is bedridden, appeared overall thin, minimal fat stores, muscle present, no severe wasting noted. CBW 134.3lb via bedscale, pt weighed 130lb during 10/30 adm this year. Pt is edentulous, no difficulties with chopped. Avg PO intake 92% of meals since adm, meeting nutritional needs. Pt requested for Boost TID wanting to gain/maintain weight, RD agreeable to plan. Current Diet Order/ Nutrition Support [facility] soft chopped. Pertinent Medications Dulcolax, Colace, Haldol, MOM Pertinent Labs Reviewed. Nutritional Hx/Data Height 5 ft 5 in Height (Calculated Centimeters) 165.1 Current Weight (lbs) 134 lb 4.8 oz Weight (Calculated Kilograms) 60.9 Weight (Calculated Grams) 99610.5 [place] Body Weight 136 Weight Status Approriate GI Symptoms Food Allergies No Cultural/Ethnic/Hinduism Belief Pt likes salad, flores side up eggs. Skin Integrity/Comment: José Miguel 16. Skin intact. Current %PO Good (75-100%) Estimated Nutritional Goals BEE in Kcals: Using Current wt Calories/Kcals/Kg CBW 134.3lb/61kg Kcals Calculated 1525-1830kcal (25-30kcal/kg) Protein: Using Current wt Protein Calculated 61g (1g/kg) Fluid: ml 1525-1830ml (1ml/kcal) Nutritional Problem 1. Problem Problem No nutritional problem at this time. Intervention/Recommendation Comments 1. Continue with cureent diet order. Avg PO intake is adequate. 2. Recommend Boost TID per pt' s request to maintain/gain weight and muscle, pt is overall thin, RD agreeable to plan. Expected Outcomes/Goals Expected Outcomes/Goals 1. PO intake continue to meet at least 75% of estimated nutritional needs.
[2016-12-20] MEDS: Multivitamin w/ Minerals Tab PO SCH (16:47)
[2016-12-21] MEDS: Dextromethorphan/Quinidine 20mg/10mg Cap PO SCH ×2 (08:51→20:42)
[2016-12-21] MEDS: Multivitamin w/ Minerals Tab PO SCH (08:51)
--- NOTE | 2016-12-21 09:16 | Psych Progress Note ---
Psych Progress Note - Intro Date of Progress Note: 12/21/16 - Assessment Assessment: Irritable and agitated. Reports that he does not need any meds. - Vitals, I&O Vitals: Vital Signs - 24 hr 12/20/16 12/20/16 14:00 20:00 Temp 97.6 F HR 66 RR 18 20 BP 128/73 O2 Sat % 96 I&O: Intake & Output 12/19/16 12/20/16 12/21/16 12/22/16 06:59 06:59 06:59 06:59 Intake Total 1020 1000 1000 Balance 1020 1000 1000 - ROS Psychological ROS: Report: Hostility, Mood swings Neurological: Report: Behavorial changes, Memory Loss - Objective Psych Objective: See below Psych General Appearance: Report: No acute distress, Disheveled Psych Behavior: Report: Alert, Uncooperative Psych Speech: Report: Normal in Rate and amount, Loud Psych Mood: Report: Angry, Frustrated, Hostile, Irritable (He has been refusing meds and has been getting easily agitated. hence haldol has been changed to routine dosing.) Psych Affect: Report: Inappropriate, Varibable Psych Thought Process: Report: Paranoid Psych Cognition: Report: Grossly Intact Psych Insight: Report: Impaired Psych Judgement: Report: Impaired - Plan Plan: Patient has to be given haldol. To continue supportive tx and await placement.Consider haldol Dec. - Review of Relevant Data Review of Relevant Data: I have reviewed the following items and time vu (where applicable) has been applied. - Diagnosis Diagnosis: Schizo affective disorder. - Medications Current Medications: Current Medications Acetaminophen (Tylenol) 650 mg PO Q4HR PRN PRN Reason: Pain or Fever >101 Stop: 02/09/17 13:34 Last Admin: 12/20/16 09:01 Dose: 650 mg Al Hydrox/Mg Hydrox/Simethicone (Maalox) 30 ml PO Q4HR PRN PRN Reason: GI DISTRESS Stop: 02/09/17 13:34 Last Admin: 12/15/16 08:45 Dose: 30 ml Bisacodyl (Dulcolax 10 Mg Supp) 10 mg RC DAILY PRN PRN Reason: Constipation Stop: 02/09/17 13:34 Dextromethorphan/Quinidine (Nuedexta 20mg-10mg) 1 cap PO Q12HR EDLA Stop: 02/09/17 20:59 Last Admin: 12/21/16 08:51 Dose: 1 cap Docusate Sodium (Colace) 100 mg PO DAILY ELDA Stop: 02/10/17 08:59 Last Admin: 12/21/16 08:51 Dose: 100 mg Lorazepam (Ativan) 0.5 mg PO Q6HR PRN; Protocol PRN Reason: Agitation Stop: 02/09/17 13:34 Last Admin: 12/21/16 08:51 Dose: 0.5 mg Magnesium Hydroxide (Milk Of Magnesia) 30 ml PO DAILY PRN PRN Reason: Constipation Stop: 02/09/17 13:34 Zolpidem Tartrate (Ambien) 5 mg PO HS PRN PRN Reason: Insomnia Stop: 02/09/17 13:34 Last Admin: 12/15/16 21:05 Dose: 5 mg
--- NOTE | 2016-12-21 15:21 | Internal Medicine Prog Note ---
Internal Medicine Subjective - Subjective Service Date: 12/21/16 Patient is:: awake, talking, agitated, confused Per staff patient has:: no adverse event Internal Medicine Objective - Results Result Diagrams: 12/11/16 00:10 12/11/16 00:10 Recent Labs: Laboratory Last Values WBC 8.1 Th/cmm (4.8-10.8) 12/11/16 00:10 RBC 4.58 Mil/cmm (3.80-5.80) 12/11/16 00:10 Hgb 13.7 gm/dL (12.6-17.4) 12/11/16 00:10 Hct 41.8 % (39.0-49.0) 12/11/16 00:10 MCV 91.2 fl (80-99) 12/11/16 00:10 MCH 29.9 pg (27.0-31.0) 12/11/16 00:10 MCHC Differential 32.8 pg (28.0-36.0) 12/11/16 00:10 RDW 13.0 % (11.5-20.0) 12/11/16 00:10 Plt Count 272 Th/cmm (150-400) 12/11/16 00:10 MPV 6.5 fl 12/11/16 00:10 Neutrophils % 58.5 % (40.0-80.0) 12/11/16 00:10 Lymphocytes % 27.6 % (20.0-50.0) 12/11/16 00:10 Monocytes % 8.4 % (2.0-10.0) 12/11/16 00:10 Eosinophils % 1.6 % (0.0-5.0) 12/11/16 00:10 Basophils % 3.9 % (0.0-2.0) H 12/11/16 00:10 PT 9.9 SECONDS (9.5-11.5) 12/11/16 00:10 INR 0.95 (0.5-1.4) 12/11/16 00:10 PTT (Actin FS) 24.7 SECONDS (26.0-38.0) L 12/11/16 00:10 Sodium 129 mEq/L (136-145) L 12/11/16 00:10 Potassium 4.3 mEq/L (3.5-5.1) 12/11/16 00:10 Chloride 99 mEq/L (98-107) 12/11/16 00:10 Carbon Dioxide 29.2 mEq/L (21.0-31.0) 12/11/16 00:10 Anion Gap 5.1 (7.0-16.0) L 12/11/16 00:10 BUN 12 mg/dL (7-25) 12/11/16 00:10 Creatinine 0.4 mg/dL (0.7-1.3) L 12/11/16 00:10 Est GFR ( Amer) > 60.0 ml/min (>90) 12/11/16 00:10 Est GFR (Non-Af Amer) > 60.0 ml/min 12/11/16 00:10 BUN/Creatinine Ratio 30.0 12/11/16 00:10 Glucose 97 mg/dL (70-105) 12/11/16 00:10 Calcium 9.1 mg/dL (8.6-10.3) 12/11/16 00:10 Total Bilirubin 0.5 mg/dL (0.3-1.0) 12/11/16 00:10 AST 15 U/L (13-39) 12/11/16 00:10 ALT 10 U/L (7-52) 12/11/16 00:10 Alkaline Phosphatase 215 U/L (34-104) H 12/11/16 00:10 Troponin I < 0.01 ng/mL (0.01-0.05) L 12/11/16 00:10 Total Protein 6.8 gm/dL (6.0-8.3) 12/11/16 00:10 Albumin 3.9 gm/dL (4.2-5.5) L 12/11/16 00:10 Globulin 2.9 gm/dL 12/11/16 00:10 Albumin/Globulin Ratio 1.3 (1.0-1.8) 12/11/16 00:10 Triglycerides 84 mg/dL (<150) 12/11/16 00:10 Cholesterol 174 mg/dL (<200) 12/11/16 00:10 LDL Cholesterol Direct 101 mg/dL (75-193) 12/11/16 00:10 HDL Cholesterol 61 mg/dL (23-92) 12/11/16 00:10 TSH 0.85 uIU/ml (0.34-5.60) 12/11/16 00:15 RPR NONREACTIVE (NONREACTIVE) 12/11/16 00:10 - Physical Exam Vitals and I&O: Vital Signs Temp 97.6 F 12/20/16 14:00 Pulse 66 12/20/16 14:00 Resp 20 12/20/16 20:00 BP 128/73 12/20/16 14:00 Pulse Ox 96 12/20/16 14:00 Intake & Output 12/20/16 12/21/16 12/21/16 18:59 06:59 18:59 Intake Total 1000 Balance 1000 Intake: Oral 1000 Other: # Voids 4 # Bowel Movements 1 Active Medications: Current Medications Acetaminophen (Tylenol) 650 mg PO Q4HR PRN PRN Reason: Pain or Fever >101 Stop: 02/09/17 13:34 Last Admin: 12/20/16 09:01 Dose: 650 mg Al Hydrox/Mg Hydrox/Simethicone (Maalox) 30 ml PO Q4HR PRN PRN Reason: GI DISTRESS Stop: 02/09/17 13:34 Last Admin: 12/15/16 08:45 Dose: 30 ml Bisacodyl (Dulcolax 10 Mg Supp) 10 mg RC DAILY PRN PRN Reason: Constipation Stop: 02/09/17 13:34 Dextromethorphan/Quinidine (Nuedexta 20mg-10mg) 1 cap PO Q12HR ELDA Stop: 02/09/17 20:59 Last Admin: 12/21/16 08:51 Dose: 1 cap Docusate Sodium (Colace) 100 mg PO DAILY ELDA Stop: 02/10/17 08:59 Last Admin: 12/21/16 08:51 Dose: 100 mg Haloperidol (Haldol) 2 mg PO BID ELDA PRN Reason: Protocol Stop: 02/19/17 16:59 Lorazepam (Ativan) 0.5 mg PO Q6HR PRN; Protocol PRN Reason: Agitation Stop: 02/09/17 13:34 Last Admin: 12/21/16 08:51 Dose: 0.5 mg Magnesium Hydroxide (Milk Of Magnesia) 30 ml PO DAILY PRN PRN Reason: Constipation Stop: 02/09/17 13:34 Zolpidem Tartrate (Ambien) 5 mg PO HS PRN PRN Reason: Insomnia Stop: 02/09/17 13:34 Last Admin: 12/15/16 21:05 Dose: 5 mg General: alert, NAD HEENT: NC/AT, PERRLA Neck: Supple Lungs: CTAB Cardiovascular: RRR, Normal S1, Normal S2, without murmur Abdomen: soft, non-tender, non-distended, positive bowel sound Extremities: clear Neurological: no change - Procedures Procedures: Procedures Procedure Code Date OTHER GROUP THERAPY 94.44 10/28/14 Internal Medicine Assmt/Plan - Assessment Assessment: DEMENTIA INSOMNIA OA GASTRITIS SCHIZOPHRENIA AHD CAD HTN - Plan Plan: FALL PRECAUTIONS MONITOR BP WILL MONITOR PATIENT CLOSELY. Nutritional Asmnt/Malnutr-PDOC - Dietary Evaluation Malnutrition Findings (Please click <Entered> for more info): Nutritional Asmnt/Malnutrition Start: 12/14/16 14: 08 Text: Status: Complete Freq: Document 12/14/16 14:24 GSUN (Rec: 12/14/16 14:35 GSUN [email or web address]) Nutritional Asmnt/Malnutrition Patient General Information Nutritional Screening Moderate Risk Screening Diagnosis Bipolar Pertinent Medical Hx/Surgical Hx Dementia, insomnia, OA, gastritis, schizophrenia, AHD, CAD, HTN Subjective Information 66 year old male from SNF. Pt was pleasant, alert, talkative , slurred speech slightly difficult to understand. Pt is bedridden, appeared overall thin, minimal fat stores, muscle present, no severe wasting noted. CBW 134.3lb via bedscale, pt weighed 130lb during 10/30 adm this year. Pt is edentulous, no difficulties with chopped. Avg PO intake 92% of meals since adm, meeting nutritional needs. Pt requested for Boost TID wanting to gain/maintain weight, RD agreeable to plan. Current Diet Order/ Nutrition Support [facility] soft chopped. Pertinent Medications Dulcolax, Colace, Haldol, MOM Pertinent Labs Reviewed. Nutritional Hx/Data Height 5 ft 5 in Height (Calculated Centimeters) 165.1 Current Weight (lbs) 134 lb 4.8 oz Weight (Calculated Kilograms) 60.9 Weight (Calculated Grams) 94272.5 [place] Body Weight 136 Weight Status Approriate GI Symptoms Food Allergies No Cultural/Ethnic/Mormonism Belief Pt likes salad, flores side up eggs. Skin Integrity/Comment: José Miguel 16. Skin intact. Current %PO Good (75-100%) Estimated Nutritional Goals BEE in Kcals: Using Current wt Calories/Kcals/Kg CBW 134.3lb/61kg Kcals Calculated 1525-1830kcal (25-30kcal/kg) Protein: Using Current wt Protein Calculated 61g (1g/kg) Fluid: ml 1525-1830ml (1ml/kcal) Nutritional Problem 1. Problem Problem No nutritional problem at this time. Intervention/Recommendation Comments 1. Continue with cureent diet order. Avg PO intake is adequate. 2. Recommend Boost TID per pt' s request to maintain/gain weight and muscle, pt is overall thin, RD agreeable to plan. Expected Outcomes/Goals Expected Outcomes/Goals 1. PO intake continue to meet at least 75% of estimated nutritional needs.
[2016-12-22] MEDS: Multivitamin w/ Minerals Tab PO SCH (08:29)
[2016-12-22] MEDS: Dextromethorphan/Quinidine 20mg/10mg Cap PO SCH ×2 (08:29→20:35)
--- NOTE | 2016-12-22 14:54 | Internal Medicine Prog Note ---
Internal Medicine Subjective - Subjective Patient seen and examined:: with staff, chart reviewed Patient is:: awake, talking, agitated, confused Per staff patient has:: no adverse event, agitated, confused, tolerating meds Internal Medicine Objective - Results Result Diagrams: 12/11/16 00:10 12/11/16 00:10 Recent Labs: Laboratory Last Values WBC 8.1 Th/cmm (4.8-10.8) 12/11/16 00:10 RBC 4.58 Mil/cmm (3.80-5.80) 12/11/16 00:10 Hgb 13.7 gm/dL (12.6-17.4) 12/11/16 00:10 Hct 41.8 % (39.0-49.0) 12/11/16 00:10 MCV 91.2 fl (80-99) 12/11/16 00:10 MCH 29.9 pg (27.0-31.0) 12/11/16 00:10 MCHC Differential 32.8 pg (28.0-36.0) 12/11/16 00:10 RDW 13.0 % (11.5-20.0) 12/11/16 00:10 Plt Count 272 Th/cmm (150-400) 12/11/16 00:10 MPV 6.5 fl 12/11/16 00:10 Neutrophils % 58.5 % (40.0-80.0) 12/11/16 00:10 Lymphocytes % 27.6 % (20.0-50.0) 12/11/16 00:10 Monocytes % 8.4 % (2.0-10.0) 12/11/16 00:10 Eosinophils % 1.6 % (0.0-5.0) 12/11/16 00:10 Basophils % 3.9 % (0.0-2.0) H 12/11/16 00:10 PT 9.9 SECONDS (9.5-11.5) 12/11/16 00:10 INR 0.95 (0.5-1.4) 12/11/16 00:10 PTT (Actin FS) 24.7 SECONDS (26.0-38.0) L 12/11/16 00:10 Sodium 129 mEq/L (136-145) L 12/11/16 00:10 Potassium 4.3 mEq/L (3.5-5.1) 12/11/16 00:10 Chloride 99 mEq/L (98-107) 12/11/16 00:10 Carbon Dioxide 29.2 mEq/L (21.0-31.0) 12/11/16 00:10 Anion Gap 5.1 (7.0-16.0) L 12/11/16 00:10 BUN 12 mg/dL (7-25) 12/11/16 00:10 Creatinine 0.4 mg/dL (0.7-1.3) L 12/11/16 00:10 Est GFR ( Amer) > 60.0 ml/min (>90) 12/11/16 00:10 Est GFR (Non-Af Amer) > 60.0 ml/min 12/11/16 00:10 BUN/Creatinine Ratio 30.0 12/11/16 00:10 Glucose 97 mg/dL (70-105) 12/11/16 00:10 Calcium 9.1 mg/dL (8.6-10.3) 12/11/16 00:10 Total Bilirubin 0.5 mg/dL (0.3-1.0) 12/11/16 00:10 AST 15 U/L (13-39) 12/11/16 00:10 ALT 10 U/L (7-52) 12/11/16 00:10 Alkaline Phosphatase 215 U/L (34-104) H 12/11/16 00:10 Troponin I < 0.01 ng/mL (0.01-0.05) L 12/11/16 00:10 Total Protein 6.8 gm/dL (6.0-8.3) 12/11/16 00:10 Albumin 3.9 gm/dL (4.2-5.5) L 12/11/16 00:10 Globulin 2.9 gm/dL 12/11/16 00:10 Albumin/Globulin Ratio 1.3 (1.0-1.8) 12/11/16 00:10 Triglycerides 84 mg/dL (<150) 12/11/16 00:10 Cholesterol 174 mg/dL (<200) 12/11/16 00:10 LDL Cholesterol Direct 101 mg/dL (75-193) 12/11/16 00:10 HDL Cholesterol 61 mg/dL (23-92) 12/11/16 00:10 TSH 0.85 uIU/ml (0.34-5.60) 12/11/16 00:15 RPR NONREACTIVE (NONREACTIVE) 12/11/16 00:10 - Physical Exam Vitals and I&O: Vital Signs Temp 97.6 F 12/21/16 14:00 Pulse 82 12/21/16 14:00 Resp 20 12/21/16 23:09 BP 120/71 12/21/16 14:00 Pulse Ox 98 12/21/16 14:00 Intake & Output 12/21/16 12/22/16 12/22/16 18:59 06:59 18:59 Intake Total 1200 Balance 1200 Weight (lbs) 61.416 kg Intake: Oral 1200 Other: # Voids 2 # Bowel Movements 1 Active Medications: Current Medications Acetaminophen (Tylenol) 650 mg PO Q4HR PRN PRN Reason: Pain or Fever >101 Stop: 02/09/17 13:34 Last Admin: 12/22/16 08:29 Dose: 650 mg Al Hydrox/Mg Hydrox/Simethicone (Maalox) 30 ml PO Q4HR PRN PRN Reason: GI DISTRESS Stop: 02/09/17 13:34 Last Admin: 12/15/16 08:45 Dose: 30 ml Bisacodyl (Dulcolax 10 Mg Supp) 10 mg RC DAILY PRN PRN Reason: Constipation Stop: 02/09/17 13:34 Dextromethorphan/Quinidine (Nuedexta 20mg-10mg) 1 cap PO Q12HR ELDA Stop: 02/09/17 20:59 Last Admin: 12/22/16 08:29 Dose: 1 cap Docusate Sodium (Colace) 100 mg PO DAILY ELDA Stop: 02/10/17 08:59 Last Admin: 12/22/16 08:30 Dose: 100 mg Haloperidol (Haldol) 2 mg PO BID ELDA PRN Reason: Protocol Stop: 02/19/17 16:59 Lorazepam (Ativan) 0.5 mg PO Q6HR PRN; Protocol PRN Reason: Agitation Stop: 02/09/17 13:34 Last Admin: 12/21/16 08:51 Dose: 0.5 mg Magnesium Hydroxide (Milk Of Magnesia) 30 ml PO DAILY PRN PRN Reason: Constipation Stop: 02/09/17 13:34 Zolpidem Tartrate (Ambien) 5 mg PO HS PRN PRN Reason: Insomnia Stop: 02/09/17 13:34 Last Admin: 12/15/16 21:05 Dose: 5 mg General: alert, NAD HEENT: NC/AT, PERRLA Neck: Supple Lungs: CTAB Cardiovascular: RRR, Normal S1, Normal S2, without murmur Abdomen: soft, non-tender, non-distended, positive bowel sound Extremities: clear Neurological: no change - Procedures Procedures: Procedures Procedure Code Date OTHER GROUP THERAPY 94.44 10/28/14 Internal Medicine Assmt/Plan - Assessment Assessment: DEMENTIA INSOMNIA OA GASTRITIS SCHIZOPHRENIA AHD CAD HTN - Plan Plan: - Plan Plan: FALL PRECAUTIONS MONITOR BP WILL MONITOR PATIENT CLOSELY. aroldo rn Nutritional Asmnt/Malnutr-PDOC - Dietary Evaluation Malnutrition Findings (Please click <Entered> for more info): Nutritional Asmnt/Malnutrition Start: 12/14/16 14: 08 Text: Status: Complete Freq: Document 12/14/16 14:24 GSUN (Rec: 12/14/16 14:35 GSUN [email or web address]) Nutritional Asmnt/Malnutrition Patient General Information Nutritional Screening Moderate Risk Screening Diagnosis Bipolar Pertinent Medical Hx/Surgical Hx Dementia, insomnia, OA, gastritis, schizophrenia, AHD, CAD, HTN Subjective Information 66 year old male from SNF. Pt was pleasant, alert, talkative , slurred speech slightly difficult to understand. Pt is bedridden, appeared overall thin, minimal fat stores, muscle present, no severe wasting noted. CBW 134.3lb via bedscale, pt weighed 130lb during 10/30 adm this year. Pt is edentulous, no difficulties with chopped. Avg PO intake 92% of meals since adm, meeting nutritional needs. Pt requested for Boost TID wanting to gain/maintain weight, RD agreeable to plan. Current Diet Order/ Nutrition Support [facility] soft chopped. Pertinent Medications Dulcolax, Colace, Haldol, MOM Pertinent Labs Reviewed. Nutritional Hx/Data Height 1.65 m Height (Calculated Centimeters) 165.1 Current Weight (lbs) 60.917 kg Weight (Calculated Kilograms) 60.9 Weight (Calculated Grams) 55176.5 [place] Body Weight 136 Weight Status Approriate GI Symptoms Food Allergies No Cultural/Ethnic/Confucianism Belief Pt likes salad, flores side up eggs. Skin Integrity/Comment: José Miguel 16. Skin intact. Current %PO Good (75-100%) Estimated Nutritional Goals BEE in Kcals: Using Current wt Calories/Kcals/Kg CBW 134.3lb/61kg Kcals Calculated 1525-1830kcal (25-30kcal/kg) Protein: Using Current wt Protein Calculated 61g (1g/kg) Fluid: ml 1525-1830ml (1ml/kcal) Nutritional Problem 1. Problem Problem No nutritional problem at this time. Intervention/Recommendation Comments 1. Continue with cureent diet order. Avg PO intake is adequate. 2. Recommend Boost TID per pt' s request to maintain/gain weight and muscle, pt is overall thin, RD agreeable to plan. Expected Outcomes/Goals Expected Outcomes/Goals 1. PO intake continue to meet at least 75% of estimated nutritional needs.
--- NOTE | 2016-12-22 19:32 | Progress Notes ---
DATE: 12/22/2016 PSYCHIATRIC PROGRESS NOTE TIME PATIENT SEEN: 01:45 p.m. SUBJECTIVE: Staff was spoken to. The patient is interviewed. Mood is noted to be irritable. Affect is constricted. Coping skills are noted to be poor. The patient has been still reluctant, but for the first time he has been willing to comply with the medications and has taken oral medications. It is decided to slowly convert his oral medications into the long-acting Haldol Decanoate; however, he is noted to be very reluctant to comply with the treatment and has been refusing to comply and hence it is decided to go with long acting medication. ASSESSMENT: The patient is still psychotic supportive therapy. I encouraged the patient to verbalize the concerns rather than to act out. JOB# [id number]
[2016-12-23] MEDS: Dextromethorphan/Quinidine 20mg/10mg Cap PO SCH ×2 (09:10→20:36)
[2016-12-23] MEDS: Multivitamin w/ Minerals Tab PO SCH (09:10)
--- NOTE | 2016-12-23 14:24 | Psych Progress Note ---
Psych Progress Note - Intro Date of Progress Note: 12/23/16 - Assessment Assessment: Irritable and agitated. Reports that he is doing okay. - Vitals, I&O Vitals: Vital Signs - 24 hr 12/22/16 12/22/16 12/23/16 14:54 20:00 07:05 Temp 97.8 F 98.6 F 98.2 F HR 80 67 76 HR [Radial] 67 RR 20 18 19 BP 142/81 138/65 142/77 O2 Sat % 98 98 97 12/23/16 09:00 Temp HR HR [Radial] RR 20 BP O2 Sat % I&O: Intake & Output 12/21/16 12/22/16 12/23/16 12/24/16 06:59 06:59 06:59 06:59 Intake Total 1000 1200 1020 Balance 1000 1200 1020 Weight (lbs) 61.416 kg - ROS Psychological ROS: Report: Mood swings Neurological: Report: Dizziness, Gait Disturbance, Memory Loss - Objective Psych Objective: See below Psych General Appearance: Report: No acute distress, Disheveled Psych Behavior: Report: Alert Psych Speech: Report: Loud Psych Mood: Report: Frustrated, Irritable (He has been refusing meds and has been getting easily agitated. hence haldol has been changed to routine dosing.) Psych Affect: Report: Anxious, Inappropriate, Varibable Psych Thought Process: Report: Paranoid Psych Cognition: Report: Grossly Intact Psych Insight: Report: Impaired Psych Judgement: Report: Impaired - Plan Plan: To continue supportive tx and await placement.Consider haldol Dec. - Review of Relevant Data Review of Relevant Data: I have reviewed the following items and time vu (where applicable) has been applied. Psych Data Reviewed: Meds - Diagnosis Diagnosis: Schizo affective disorder. - Medications Current Medications: Current Medications Acetaminophen (Tylenol) 650 mg PO Q4HR PRN PRN Reason: Pain or Fever >101 Stop: 02/09/17 13:34 Last Admin: 12/23/16 09:10 Dose: 650 mg Al Hydrox/Mg Hydrox/Simethicone (Maalox) 30 ml PO Q4HR PRN PRN Reason: GI DISTRESS Stop: 02/09/17 13:34 Last Admin: 12/15/16 08:45 Dose: 30 ml Bisacodyl (Dulcolax 10 Mg Supp) 10 mg RC DAILY PRN PRN Reason: Constipation Stop: 02/09/17 13:34 Dextromethorphan/Quinidine (Nuedexta 20mg-10mg) 1 cap PO Q12HR ELDA Stop: 02/09/17 20:59 Last Admin: 12/23/16 09:10 Dose: 1 cap Docusate Sodium (Colace) 100 mg PO DAILY ELDA Stop: 02/10/17 08:59 Last Admin: 12/23/16 09:10 Dose: 100 mg Haloperidol (Haldol) 2 mg PO BID ELDA PRN Reason: Protocol Stop: 02/19/17 16:59 Last Admin: 12/23/16 09:10 Dose: 2 mg Lorazepam (Ativan) 0.5 mg PO Q6HR PRN; Protocol PRN Reason: Agitation Stop: 02/09/17 13:34 Last Admin: 12/23/16 09:10 Dose: 0.5 mg Magnesium Hydroxide (Milk Of Magnesia) 30 ml PO DAILY PRN PRN Reason: Constipation Stop: 02/09/17 13:34 Last Admin: 12/23/16 09:09 Dose: 30 ml Zolpidem Tartrate (Ambien) 5 mg PO HS PRN PRN Reason: Insomnia Stop: 02/09/17 13:34 Last Admin: 12/22/16 20:43 Dose: 5 mg
--- NOTE | 2016-12-23 15:52 | Internal Medicine Prog Note ---
Internal Medicine Subjective - Subjective Patient seen and examined:: with staff, chart reviewed Patient is:: awake, talking, agitated, confused Per staff patient has:: no adverse event, agitated, confused, tolerating meds Internal Medicine Objective - Results Result Diagrams: 12/11/16 00:10 12/11/16 00:10 Recent Labs: Laboratory Last Values WBC 8.1 Th/cmm (4.8-10.8) 12/11/16 00:10 RBC 4.58 Mil/cmm (3.80-5.80) 12/11/16 00:10 Hgb 13.7 gm/dL (12.6-17.4) 12/11/16 00:10 Hct 41.8 % (39.0-49.0) 12/11/16 00:10 MCV 91.2 fl (80-99) 12/11/16 00:10 MCH 29.9 pg (27.0-31.0) 12/11/16 00:10 MCHC Differential 32.8 pg (28.0-36.0) 12/11/16 00:10 RDW 13.0 % (11.5-20.0) 12/11/16 00:10 Plt Count 272 Th/cmm (150-400) 12/11/16 00:10 MPV 6.5 fl 12/11/16 00:10 Neutrophils % 58.5 % (40.0-80.0) 12/11/16 00:10 Lymphocytes % 27.6 % (20.0-50.0) 12/11/16 00:10 Monocytes % 8.4 % (2.0-10.0) 12/11/16 00:10 Eosinophils % 1.6 % (0.0-5.0) 12/11/16 00:10 Basophils % 3.9 % (0.0-2.0) H 12/11/16 00:10 PT 9.9 SECONDS (9.5-11.5) 12/11/16 00:10 INR 0.95 (0.5-1.4) 12/11/16 00:10 PTT (Actin FS) 24.7 SECONDS (26.0-38.0) L 12/11/16 00:10 Sodium 129 mEq/L (136-145) L 12/11/16 00:10 Potassium 4.3 mEq/L (3.5-5.1) 12/11/16 00:10 Chloride 99 mEq/L (98-107) 12/11/16 00:10 Carbon Dioxide 29.2 mEq/L (21.0-31.0) 12/11/16 00:10 Anion Gap 5.1 (7.0-16.0) L 12/11/16 00:10 BUN 12 mg/dL (7-25) 12/11/16 00:10 Creatinine 0.4 mg/dL (0.7-1.3) L 12/11/16 00:10 Est GFR ( Amer) > 60.0 ml/min (>90) 12/11/16 00:10 Est GFR (Non-Af Amer) > 60.0 ml/min 12/11/16 00:10 BUN/Creatinine Ratio 30.0 12/11/16 00:10 Glucose 97 mg/dL (70-105) 12/11/16 00:10 Calcium 9.1 mg/dL (8.6-10.3) 12/11/16 00:10 Total Bilirubin 0.5 mg/dL (0.3-1.0) 12/11/16 00:10 AST 15 U/L (13-39) 12/11/16 00:10 ALT 10 U/L (7-52) 12/11/16 00:10 Alkaline Phosphatase 215 U/L (34-104) H 12/11/16 00:10 Troponin I < 0.01 ng/mL (0.01-0.05) L 12/11/16 00:10 Total Protein 6.8 gm/dL (6.0-8.3) 12/11/16 00:10 Albumin 3.9 gm/dL (4.2-5.5) L 12/11/16 00:10 Globulin 2.9 gm/dL 12/11/16 00:10 Albumin/Globulin Ratio 1.3 (1.0-1.8) 12/11/16 00:10 Triglycerides 84 mg/dL (<150) 12/11/16 00:10 Cholesterol 174 mg/dL (<200) 12/11/16 00:10 LDL Cholesterol Direct 101 mg/dL (75-193) 12/11/16 00:10 HDL Cholesterol 61 mg/dL (23-92) 12/11/16 00:10 TSH 0.85 uIU/ml (0.34-5.60) 12/11/16 00:15 RPR NONREACTIVE (NONREACTIVE) 12/11/16 00:10 - Physical Exam Vitals and I&O: Vital Signs Temp 98.2 F 12/23/16 07:05 Pulse 76 12/23/16 07:05 Resp 20 12/23/16 09:00 BP 142/77 12/23/16 07:05 Pulse Ox 97 12/23/16 07:05 Intake & Output 12/22/16 12/23/16 12/23/16 18:59 06:59 18:59 Intake Total 900 120 Balance 900 120 Intake: Oral 900 120 Other: # Voids 4 2 2 # Bowel Movements 2 0 Active Medications: Current Medications Acetaminophen (Tylenol) 650 mg PO Q4HR PRN PRN Reason: Pain or Fever >101 Stop: 02/09/17 13:34 Last Admin: 12/23/16 09:10 Dose: 650 mg Al Hydrox/Mg Hydrox/Simethicone (Maalox) 30 ml PO Q4HR PRN PRN Reason: GI DISTRESS Stop: 02/09/17 13:34 Last Admin: 12/15/16 08:45 Dose: 30 ml Bisacodyl (Dulcolax 10 Mg Supp) 10 mg RC DAILY PRN PRN Reason: Constipation Stop: 02/09/17 13:34 Dextromethorphan/Quinidine (Nuedexta 20mg-10mg) 1 cap PO Q12HR ELDA Stop: 02/09/17 20:59 Last Admin: 12/23/16 09:10 Dose: 1 cap Docusate Sodium (Colace) 100 mg PO DAILY ELDA Stop: 02/10/17 08:59 Last Admin: 12/23/16 09:10 Dose: 100 mg Haloperidol (Haldol) 2 mg PO BID ELDA PRN Reason: Protocol Stop: 02/19/17 16:59 Last Admin: 12/23/16 09:10 Dose: 2 mg Lorazepam (Ativan) 0.5 mg PO Q6HR PRN; Protocol PRN Reason: Agitation Stop: 02/09/17 13:34 Last Admin: 12/23/16 15:13 Dose: 0.5 mg Magnesium Hydroxide (Milk Of Magnesia) 30 ml PO DAILY PRN PRN Reason: Constipation Stop: 02/09/17 13:34 Last Admin: 12/23/16 09:09 Dose: 30 ml Zolpidem Tartrate (Ambien) 5 mg PO HS PRN PRN Reason: Insomnia Stop: 02/09/17 13:34 Last Admin: 12/22/16 20:43 Dose: 5 mg General: alert, NAD HEENT: NC/AT, PERRLA Neck: Supple Lungs: CTAB Cardiovascular: RRR, Normal S1, Normal S2, without murmur Abdomen: soft, non-tender, non-distended, positive bowel sound Extremities: clear Neurological: no change - Procedures Procedures: Procedures Procedure Code Date OTHER GROUP THERAPY 94.44 10/28/14 Internal Medicine Assmt/Plan - Assessment Assessment: DEMENTIA INSOMNIA OA GASTRITIS SCHIZOPHRENIA AHD CAD HTN - Plan Plan: - Plan Plan: FALL PRECAUTIONS MONITOR BP WILL MONITOR PATIENT CLOSELY. aroldo neil Nutritional Asmnt/Malnutr-PDOC - Dietary Evaluation Malnutrition Findings (Please click <Entered> for more info): Nutritional Asmnt/Malnutrition Start: 12/14/16 14: 08 Text: Status: Complete Freq: Document 12/14/16 14:24 GSUN (Rec: 12/14/16 14:35 [email or web address] [email or web address]) Nutritional Asmnt/Malnutrition Patient General Information Nutritional Screening Moderate Risk Screening Diagnosis Bipolar Pertinent Medical Hx/Surgical Hx Dementia, insomnia, OA, gastritis, schizophrenia, AHD, CAD, HTN Subjective Information 66 year old male from SNF. Pt was pleasant, alert, talkative , slurred speech slightly difficult to understand. Pt is bedridden, appeared overall thin, minimal fat stores, muscle present, no severe wasting noted. CBW 134.3lb via bedscale, pt weighed 130lb during 10/30 adm this year. Pt is edentulous, no difficulties with chopped. Avg PO intake 92% of meals since adm, meeting nutritional needs. Pt requested for Boost TID wanting to gain/maintain weight, RD agreeable to plan. Current Diet Order/ Nutrition Support [facility] soft chopped. Pertinent Medications Dulcolax, Colace, Haldol, MOM Pertinent Labs Reviewed. Nutritional Hx/Data Height 1.65 m Height (Calculated Centimeters) 165.1 Current Weight (lbs) 60.917 kg Weight (Calculated Kilograms) 60.9 Weight (Calculated Grams) 41400.5 [place] Body Weight 136 Weight Status Approriate GI Symptoms Food Allergies No Cultural/Ethnic/Sikh Belief Pt likes salad, flores side up eggs. Skin Integrity/Comment: José Miguel 16. Skin intact. Current %PO Good (75-100%) Estimated Nutritional Goals BEE in Kcals: Using Current wt Calories/Kcals/Kg CBW 134.3lb/61kg Kcals Calculated 1525-1830kcal (25-30kcal/kg) Protein: Using Current wt Protein Calculated 61g (1g/kg) Fluid: ml 1525-1830ml (1ml/kcal) Nutritional Problem 1. Problem Problem No nutritional problem at this time. Intervention/Recommendation Comments 1. Continue with cureent diet order. Avg PO intake is adequate. 2. Recommend Boost TID per pt' s request to maintain/gain weight and muscle, pt is overall thin, RD agreeable to plan. Expected Outcomes/Goals Expected Outcomes/Goals 1. PO intake continue to meet at least 75% of estimated nutritional needs.
[2016-12-24] MEDS: Dextromethorphan/Quinidine 20mg/10mg Cap PO SCH ×2 (09:21→20:05)
[2016-12-24] MEDS: Maalox 30 mL Cup PO PRN (09:21)
[2016-12-24] MEDS: Multivitamin w/ Minerals Tab PO SCH (09:29)
--- NOTE | 2016-12-24 12:51 | Internal Medicine Prog Note ---
Internal Medicine Subjective - Subjective Service Date: 12/24/16 Patient seen and examined:: with staff Patient is:: awake, talking, agitated, confused Per staff patient has:: no adverse event, agitated, confused, tolerating meds Internal Medicine Objective - Results Result Diagrams: 12/11/16 00:10 12/11/16 00:10 Recent Labs: Laboratory Last Values WBC 8.1 Th/cmm (4.8-10.8) 12/11/16 00:10 RBC 4.58 Mil/cmm (3.80-5.80) 12/11/16 00:10 Hgb 13.7 gm/dL (12.6-17.4) 12/11/16 00:10 Hct 41.8 % (39.0-49.0) 12/11/16 00:10 MCV 91.2 fl (80-99) 12/11/16 00:10 MCH 29.9 pg (27.0-31.0) 12/11/16 00:10 MCHC Differential 32.8 pg (28.0-36.0) 12/11/16 00:10 RDW 13.0 % (11.5-20.0) 12/11/16 00:10 Plt Count 272 Th/cmm (150-400) 12/11/16 00:10 MPV 6.5 fl 12/11/16 00:10 Neutrophils % 58.5 % (40.0-80.0) 12/11/16 00:10 Lymphocytes % 27.6 % (20.0-50.0) 12/11/16 00:10 Monocytes % 8.4 % (2.0-10.0) 12/11/16 00:10 Eosinophils % 1.6 % (0.0-5.0) 12/11/16 00:10 Basophils % 3.9 % (0.0-2.0) H 12/11/16 00:10 PT 9.9 SECONDS (9.5-11.5) 12/11/16 00:10 INR 0.95 (0.5-1.4) 12/11/16 00:10 PTT (Actin FS) 24.7 SECONDS (26.0-38.0) L 12/11/16 00:10 Sodium 129 mEq/L (136-145) L 12/11/16 00:10 Potassium 4.3 mEq/L (3.5-5.1) 12/11/16 00:10 Chloride 99 mEq/L (98-107) 12/11/16 00:10 Carbon Dioxide 29.2 mEq/L (21.0-31.0) 12/11/16 00:10 Anion Gap 5.1 (7.0-16.0) L 12/11/16 00:10 BUN 12 mg/dL (7-25) 12/11/16 00:10 Creatinine 0.4 mg/dL (0.7-1.3) L 12/11/16 00:10 Est GFR ( Amer) > 60.0 ml/min (>90) 12/11/16 00:10 Est GFR (Non-Af Amer) > 60.0 ml/min 12/11/16 00:10 BUN/Creatinine Ratio 30.0 12/11/16 00:10 Glucose 97 mg/dL (70-105) 12/11/16 00:10 Calcium 9.1 mg/dL (8.6-10.3) 12/11/16 00:10 Total Bilirubin 0.5 mg/dL (0.3-1.0) 12/11/16 00:10 AST 15 U/L (13-39) 12/11/16 00:10 ALT 10 U/L (7-52) 12/11/16 00:10 Alkaline Phosphatase 215 U/L (34-104) H 12/11/16 00:10 Troponin I < 0.01 ng/mL (0.01-0.05) L 12/11/16 00:10 Total Protein 6.8 gm/dL (6.0-8.3) 12/11/16 00:10 Albumin 3.9 gm/dL (4.2-5.5) L 12/11/16 00:10 Globulin 2.9 gm/dL 12/11/16 00:10 Albumin/Globulin Ratio 1.3 (1.0-1.8) 12/11/16 00:10 Triglycerides 84 mg/dL (<150) 12/11/16 00:10 Cholesterol 174 mg/dL (<200) 12/11/16 00:10 LDL Cholesterol Direct 101 mg/dL (75-193) 12/11/16 00:10 HDL Cholesterol 61 mg/dL (23-92) 12/11/16 00:10 TSH 0.85 uIU/ml (0.34-5.60) 12/11/16 00:15 RPR NONREACTIVE (NONREACTIVE) 12/11/16 00:10 - Physical Exam Vitals and I&O: Vital Signs Temp 97.8 F 12/24/16 06:06 Pulse 85 12/24/16 06:06 Resp 20 12/24/16 06:06 BP 157/76 12/24/16 06:06 Pulse Ox 97 12/24/16 06:06 Intake & Output 12/23/16 12/24/16 12/24/16 18:59 06:59 18:59 Intake Total 900 Balance 900 Intake: Oral 900 Other: # Voids 5 # Bowel Movements 2 Active Medications: Current Medications Acetaminophen (Tylenol) 650 mg PO Q4HR PRN PRN Reason: Pain or Fever >101 Stop: 02/09/17 13:34 Last Admin: 12/24/16 09:20 Dose: 650 mg Al Hydrox/Mg Hydrox/Simethicone (Maalox) 30 ml PO Q4HR PRN PRN Reason: GI DISTRESS Stop: 02/09/17 13:34 Last Admin: 12/24/16 09:21 Dose: 30 ml Bisacodyl (Dulcolax 10 Mg Supp) 10 mg RC DAILY PRN PRN Reason: Constipation Stop: 02/09/17 13:34 Dextromethorphan/Quinidine (Nuedexta 20mg-10mg) 1 cap PO Q12HR ELDA Stop: 02/09/17 20:59 Last Admin: 12/24/16 09:21 Dose: 1 cap Docusate Sodium (Colace) 100 mg PO DAILY [facility] Stop: 02/10/17 08:59 Last Admin: 12/24/16 09:29 Dose: Not Given Haloperidol (Haldol) 2 mg PO BID ELDA PRN Reason: Protocol Stop: 02/19/17 16:59 Last Admin: 12/24/16 09:21 Dose: 2 mg Lorazepam (Ativan) 0.5 mg PO Q6HR PRN; Protocol PRN Reason: Agitation Stop: 02/09/17 13:34 Last Admin: 12/23/16 20:36 Dose: 0.5 mg Magnesium Hydroxide (Milk Of Magnesia) 30 ml PO DAILY PRN PRN Reason: Constipation Stop: 02/09/17 13:34 Last Admin: 12/23/16 09:09 Dose: 30 ml Zolpidem Tartrate (Ambien) 5 mg PO HS PRN PRN Reason: Insomnia Stop: 02/09/17 13:34 Last Admin: 12/22/16 20:43 Dose: 5 mg General: alert, NAD HEENT: NC/AT, PERRLA Neck: Supple Lungs: CTAB Cardiovascular: RRR, Normal S1, Normal S2, without murmur Abdomen: soft, non-tender, non-distended, positive bowel sound Extremities: clear Neurological: no change - Procedures Procedures: Procedures Procedure Code Date OTHER GROUP THERAPY 94.44 10/28/14 Internal Medicine Assmt/Plan - Assessment Assessment: DEMENTIA INSOMNIA OA GASTRITIS SCHIZOPHRENIA AHD CAD HTN - Plan Plan: FALL PRECAUTIONS MONITOR BP WILL MONITOR PATIENT CLOSELY. Nutritional Asmnt/Malnutr-PDOC - Dietary Evaluation Malnutrition Findings (Please click <Entered> for more info): Nutritional Asmnt/Malnutrition Start: 12/14/16 14: 08 Text: Status: Complete Freq: Document 12/14/16 14:24 GSUN (Rec: 12/14/16 14:35 GSUN [email or web address]) Nutritional Asmnt/Malnutrition Patient General Information Nutritional Screening Moderate Risk Screening Diagnosis Bipolar Pertinent Medical Hx/Surgical Hx Dementia, insomnia, OA, gastritis, schizophrenia, AHD, CAD, HTN Subjective Information 66 year old male from SNF. Pt was pleasant, alert, talkative , slurred speech slightly difficult to understand. Pt is bedridden, appeared overall thin, minimal fat stores, muscle present, no severe wasting noted. CBW 134.3lb via bedscale, pt weighed 130lb during 10/30 adm this year. Pt is edentulous, no difficulties with chopped. Avg PO intake 92% of meals since adm, meeting nutritional needs. Pt requested for Boost TID wanting to gain/maintain weight, RD agreeable to plan. Current Diet Order/ Nutrition Support [facility] soft chopped. Pertinent Medications Dulcolax, Colace, Haldol, MOM Pertinent Labs Reviewed. Nutritional Hx/Data Height 5 ft 5 in Height (Calculated Centimeters) 165.1 Current Weight (lbs) 134 lb 4.8 oz Weight (Calculated Kilograms) 60.9 Weight (Calculated Grams) 05587.5 [place] Body Weight 136 Weight Status Approriate GI Symptoms Food Allergies No Cultural/Ethnic/Islam Belief Pt likes salad, flores side up eggs. Skin Integrity/Comment: José Miguel 16. Skin intact. Current %PO Good (75-100%) Estimated Nutritional Goals BEE in Kcals: Using Current wt Calories/Kcals/Kg CBW 134.3lb/61kg Kcals Calculated 1525-1830kcal (25-30kcal/kg) Protein: Using Current wt Protein Calculated 61g (1g/kg) Fluid: ml 1525-1830ml (1ml/kcal) Nutritional Problem 1. Problem Problem No nutritional problem at this time. Intervention/Recommendation Comments 1. Continue with cureent diet order. Avg PO intake is adequate. 2. Recommend Boost TID per pt' s request to maintain/gain weight and muscle, pt is overall thin, RD agreeable to plan. Expected Outcomes/Goals Expected Outcomes/Goals 1. PO intake continue to meet at least 75% of estimated nutritional needs.
--- NOTE | 2016-12-24 18:31 | Psych Progress Note ---
Psych Progress Note - Intro Date of Progress Note: 12/24/16 - Assessment Assessment: . Reports that he is doing okay. - Vitals, I&O Vitals: Vital Signs - 24 hr 12/23/16 12/24/16 20:29 06:06 Temp 98.0 F 97.8 F HR 76 85 RR 18 20 BP 138/62 157/76 O2 Sat % 95 97 I&O: Intake & Output 12/22/16 12/23/16 12/24/16 12/25/16 06:59 06:59 06:59 06:59 Intake Total 1200 1020 900 Balance 1200 1020 900 Weight (lbs) 61.416 kg - ROS Psychological ROS: Report: Mood swings Neurological: Report: Dizziness, Gait Disturbance, Memory Loss - Objective Psych Objective: See below Psych General Appearance: Report: No acute distress, Disheveled Psych Behavior: Report: Alert Psych Speech: Report: Slurred Psych Mood: Report: Frustrated Psych Affect: Report: Anxious, Varibable Psych Thought Process: Report: Paranoid Psych Cognition: Report: Grossly Intact Psych Insight: Report: Impaired Psych Judgement: Report: Impaired - Plan Plan: To continue supportive tx and await placement.Consider haldol Dec. - Review of Relevant Data Review of Relevant Data: I have reviewed the following items and time vu (where applicable) has been applied. Psych Data Reviewed: Meds - Diagnosis Diagnosis: Schizo affective disorder. - Medications Current Medications: Current Medications Acetaminophen (Tylenol) 650 mg PO Q4HR PRN PRN Reason: Pain or Fever >101 Stop: 02/09/17 13:34 Last Admin: 12/24/16 09:20 Dose: 650 mg Al Hydrox/Mg Hydrox/Simethicone (Maalox) 30 ml PO Q4HR PRN PRN Reason: GI DISTRESS Stop: 02/09/17 13:34 Last Admin: 12/24/16 09:21 Dose: 30 ml Bisacodyl (Dulcolax 10 Mg Supp) 10 mg RC DAILY PRN PRN Reason: Constipation Stop: 02/09/17 13:34 Dextromethorphan/Quinidine (Nuedexta 20mg-10mg) 1 cap PO Q12HR ELDA Stop: 02/09/17 20:59 Last Admin: 12/24/16 09:21 Dose: 1 cap Docusate Sodium (Colace) 100 mg PO DAILY ELDA Stop: 02/10/17 08:59 Last Admin: 12/24/16 09:29 Dose: Not Given Haloperidol (Haldol) 2 mg PO BID ELDA PRN Reason: Protocol Stop: 02/19/17 16:59 Last Admin: 12/24/16 18:06 Dose: 2 mg Lorazepam (Ativan) 0.5 mg PO Q6HR PRN; Protocol PRN Reason: Agitation Stop: 02/09/17 13:34 Last Admin: 12/23/16 20:36 Dose: 0.5 mg Magnesium Hydroxide (Milk Of Magnesia) 30 ml PO DAILY PRN PRN Reason: Constipation Stop: 02/09/17 13:34 Last Admin: 12/23/16 09:09 Dose: 30 ml Zolpidem Tartrate (Ambien) 5 mg PO HS PRN PRN Reason: Insomnia Stop: 02/09/17 13:34 Last Admin: 12/22/16 20:43 Dose: 5 mg
[2016-12-25] MEDS: Dextromethorphan/Quinidine 20mg/10mg Cap PO SCH ×2 (09:40→21:17)
[2016-12-25] MEDS: Multivitamin w/ Minerals Tab PO SCH (09:41)
--- NOTE | 2016-12-25 10:36 | Psych Progress Note ---
Psych Progress Note - Intro Date of Progress Note: 12/25/16 - Assessment Assessment: . Reports that he is doing okay. - Vitals, I&O Vitals: Vital Signs - 24 hr 12/24/16 12/25/16 20:53 06:01 Temp 97.1 F 97.6 F HR 79 65 RR 20 18 BP 127/79 143/74 O2 Sat % 97 96 I&O: Intake & Output 12/23/16 12/24/16 12/25/16 12/26/16 06:59 06:59 06:59 06:59 Intake Total 1020 900 Balance 1020 900 - ROS Psychological ROS: Report: Mood swings Neurological: Report: Dizziness, Gait Disturbance, Memory Loss - Objective Psych Objective: See below Psych General Appearance: Report: No acute distress, Disheveled Psych Behavior: Report: Alert Psych Speech: Report: Slurred Psych Mood: Report: Frustrated Psych Affect: Report: Anxious, Varibable Psych Thought Process: Report: Paranoid Psych Cognition: Report: Grossly Intact Psych Insight: Report: Impaired Psych Judgement: Report: Impaired - Plan Plan: To continue supportive tx and await placement.Consider l May. - Review of Relevant Data Review of Relevant Data: I have reviewed the following items and time vu (where applicable) has been applied. Psych Data Reviewed: Meds (Patient's conservator wnat spatient to be in a locked facility. he is being seen by couple of facilities so far and we are awaitng for reply.) - Diagnosis Diagnosis: Schizo affective disorder. - Medications Current Medications: Current Medications Acetaminophen (Tylenol) 650 mg PO Q4HR PRN PRN Reason: Pain or Fever >101 Stop: 02/09/17 13:34 Last Admin: 12/25/16 09:40 Dose: 650 mg Al Hydrox/Mg Hydrox/Simethicone (Maalox) 30 ml PO Q4HR PRN PRN Reason: GI DISTRESS Stop: 02/09/17 13:34 Last Admin: 12/24/16 09:21 Dose: 30 ml Bisacodyl (Dulcolax 10 Mg Supp) 10 mg RC DAILY PRN PRN Reason: Constipation Stop: 02/09/17 13:34 Dextromethorphan/Quinidine (Nuedexta 20mg-10mg) 1 cap PO Q12HR ELDA Stop: 02/09/17 20:59 Last Admin: 12/25/16 09:40 Dose: 1 cap Docusate Sodium (Colace) 100 mg PO DAILY ELDA Stop: 02/10/17 08:59 Last Admin: 12/25/16 09:40 Dose: Not Given Haloperidol (Haldol) 2 mg PO BID ELDA PRN Reason: Protocol Stop: 02/19/17 16:59 Last Admin: 12/25/16 09:39 Dose: 2 mg Haloperidol Decanoate (Haldol Dec) 25 mg IM QMONTH ELDA PRN Reason: Protocol Stop: 02/22/17 18:29 Lorazepam (Ativan) 0.5 mg PO Q6HR PRN; Protocol PRN Reason: Agitation Stop: 02/09/17 13:34 Last Admin: 12/25/16 09:39 Dose: 0.5 mg Magnesium Hydroxide (Milk Of Magnesia) 30 ml PO DAILY PRN PRN Reason: Constipation Stop: 02/09/17 13:34 Last Admin: 12/23/16 09:09 Dose: 30 ml Zolpidem Tartrate (Ambien) 5 mg PO HS PRN PRN Reason: Insomnia Stop: 02/09/17 13:34 Last Admin: 12/22/16 20:43 Dose: 5 mg
--- NOTE | 2016-12-25 12:01 | Internal Medicine Prog Note ---
Internal Medicine Subjective - Subjective Service Date: 12/25/16 Patient is:: awake, talking, agitated, confused Per staff patient has:: no adverse event, agitated, confused, tolerating meds Internal Medicine Objective - Results Result Diagrams: 12/11/16 00:10 12/11/16 00:10 Recent Labs: Laboratory Last Values WBC 8.1 Th/cmm (4.8-10.8) 12/11/16 00:10 RBC 4.58 Mil/cmm (3.80-5.80) 12/11/16 00:10 Hgb 13.7 gm/dL (12.6-17.4) 12/11/16 00:10 Hct 41.8 % (39.0-49.0) 12/11/16 00:10 MCV 91.2 fl (80-99) 12/11/16 00:10 MCH 29.9 pg (27.0-31.0) 12/11/16 00:10 MCHC Differential 32.8 pg (28.0-36.0) 12/11/16 00:10 RDW 13.0 % (11.5-20.0) 12/11/16 00:10 Plt Count 272 Th/cmm (150-400) 12/11/16 00:10 MPV 6.5 fl 12/11/16 00:10 Neutrophils % 58.5 % (40.0-80.0) 12/11/16 00:10 Lymphocytes % 27.6 % (20.0-50.0) 12/11/16 00:10 Monocytes % 8.4 % (2.0-10.0) 12/11/16 00:10 Eosinophils % 1.6 % (0.0-5.0) 12/11/16 00:10 Basophils % 3.9 % (0.0-2.0) H 12/11/16 00:10 PT 9.9 SECONDS (9.5-11.5) 12/11/16 00:10 INR 0.95 (0.5-1.4) 12/11/16 00:10 PTT (Actin FS) 24.7 SECONDS (26.0-38.0) L 12/11/16 00:10 Sodium 129 mEq/L (136-145) L 12/11/16 00:10 Potassium 4.3 mEq/L (3.5-5.1) 12/11/16 00:10 Chloride 99 mEq/L (98-107) 12/11/16 00:10 Carbon Dioxide 29.2 mEq/L (21.0-31.0) 12/11/16 00:10 Anion Gap 5.1 (7.0-16.0) L 12/11/16 00:10 BUN 12 mg/dL (7-25) 12/11/16 00:10 Creatinine 0.4 mg/dL (0.7-1.3) L 12/11/16 00:10 Est GFR ( Amer) > 60.0 ml/min (>90) 12/11/16 00:10 Est GFR (Non-Af Amer) > 60.0 ml/min 12/11/16 00:10 BUN/Creatinine Ratio 30.0 12/11/16 00:10 Glucose 97 mg/dL (70-105) 12/11/16 00:10 Calcium 9.1 mg/dL (8.6-10.3) 12/11/16 00:10 Total Bilirubin 0.5 mg/dL (0.3-1.0) 12/11/16 00:10 AST 15 U/L (13-39) 12/11/16 00:10 ALT 10 U/L (7-52) 12/11/16 00:10 Alkaline Phosphatase 215 U/L (34-104) H 12/11/16 00:10 Troponin I < 0.01 ng/mL (0.01-0.05) L 12/11/16 00:10 Total Protein 6.8 gm/dL (6.0-8.3) 12/11/16 00:10 Albumin 3.9 gm/dL (4.2-5.5) L 12/11/16 00:10 Globulin 2.9 gm/dL 12/11/16 00:10 Albumin/Globulin Ratio 1.3 (1.0-1.8) 12/11/16 00:10 Triglycerides 84 mg/dL (<150) 12/11/16 00:10 Cholesterol 174 mg/dL (<200) 12/11/16 00:10 LDL Cholesterol Direct 101 mg/dL (75-193) 12/11/16 00:10 HDL Cholesterol 61 mg/dL (23-92) 12/11/16 00:10 TSH 0.85 uIU/ml (0.34-5.60) 12/11/16 00:15 RPR NONREACTIVE (NONREACTIVE) 12/11/16 00:10 - Physical Exam Vitals and I&O: Vital Signs Temp 97.6 F 12/25/16 06:01 Pulse 65 12/25/16 06:01 Resp 18 12/25/16 06:01 BP 143/74 12/25/16 06:01 Pulse Ox 96 12/25/16 06:01 Active Medications: Current Medications Acetaminophen (Tylenol) 650 mg PO Q4HR PRN PRN Reason: Pain or Fever >101 Stop: 02/09/17 13:34 Last Admin: 12/25/16 09:40 Dose: 650 mg Al Hydrox/Mg Hydrox/Simethicone (Maalox) 30 ml PO Q4HR PRN PRN Reason: GI DISTRESS Stop: 02/09/17 13:34 Last Admin: 12/24/16 09:21 Dose: 30 ml Bisacodyl (Dulcolax 10 Mg Supp) 10 mg RC DAILY PRN PRN Reason: Constipation Stop: 02/09/17 13:34 Dextromethorphan/Quinidine (Nuedexta 20mg-10mg) 1 cap PO Q12HR ELDA Stop: 02/09/17 20:59 Last Admin: 12/25/16 09:40 Dose: 1 cap Docusate Sodium (Colace) 100 mg PO DAILY ELDA Stop: 02/10/17 08:59 Last Admin: 12/25/16 09:40 Dose: Not Given Haloperidol (Haldol) 2 mg PO BID ELDA PRN Reason: Protocol Stop: 02/19/17 16:59 Last Admin: 12/25/16 09:39 Dose: 2 mg Haloperidol Decanoate (Haldol Dec) 25 mg IM QMONTH ELDA PRN Reason: Protocol Stop: 02/22/17 18:29 Lorazepam (Ativan) 0.5 mg PO Q6HR PRN; Protocol PRN Reason: Agitation Stop: 02/09/17 13:34 Last Admin: 12/25/16 09:39 Dose: 0.5 mg Magnesium Hydroxide (Milk Of Magnesia) 30 ml PO DAILY PRN PRN Reason: Constipation Stop: 02/09/17 13:34 Last Admin: 12/23/16 09:09 Dose: 30 ml Zolpidem Tartrate (Ambien) 5 mg PO HS PRN PRN Reason: Insomnia Stop: 02/09/17 13:34 Last Admin: 12/22/16 20:43 Dose: 5 mg General: alert, NAD HEENT: NC/AT, PERRLA Neck: Supple Lungs: CTAB Cardiovascular: RRR, Normal S1, Normal S2, without murmur Abdomen: soft, non-tender, non-distended, positive bowel sound Extremities: clear Neurological: no change - Procedures Procedures: Procedures Procedure Code Date OTHER GROUP THERAPY 94.44 10/28/14 Internal Medicine Assmt/Plan - Assessment Assessment: DEMENTIA INSOMNIA OA GASTRITIS SCHIZOPHRENIA AHD CAD HTN - Plan Plan: FALL PRECAUTIONS MONITOR BP WILL MONITOR PATIENT CLOSELY. Nutritional Asmnt/Malnutr-PDOC - Dietary Evaluation Malnutrition Findings (Please click <Entered> for more info): Nutritional Asmnt/Malnutrition Start: 12/14/16 14: 08 Text: Status: Complete Freq: Document 12/14/16 14:24 GSUN (Rec: 12/14/16 14:35 GSUN [email or web address]) Nutritional Asmnt/Malnutrition Patient General Information Nutritional Screening Moderate Risk Screening Diagnosis Bipolar Pertinent Medical Hx/Surgical Hx Dementia, insomnia, OA, gastritis, schizophrenia, AHD, CAD, HTN Subjective Information 66 year old male from SNF. Pt was pleasant, alert, talkative , slurred speech slightly difficult to understand. Pt is bedridden, appeared overall thin, minimal fat stores, muscle present, no severe wasting noted. CBW 134.3lb via bedscale, pt weighed 130lb during 10/30 adm this year. Pt is edentulous, no difficulties with chopped. Avg PO intake 92% of meals since adm, meeting nutritional needs. Pt requested for Boost TID wanting to gain/maintain weight, RD agreeable to plan. Current Diet Order/ Nutrition Support [facility] soft chopped. Pertinent Medications Dulcolax, Colace, Haldol, MOM Pertinent Labs Reviewed. Nutritional Hx/Data Height 5 ft 5 in Height (Calculated Centimeters) 165.1 Current Weight (lbs) 134 lb 4.8 oz Weight (Calculated Kilograms) 60.9 Weight (Calculated Grams) 91188.5 [place] Body Weight 136 Weight Status Approriate GI Symptoms Food Allergies No Cultural/Ethnic/Yazidism Belief Pt likes salad, flores side up eggs. Skin Integrity/Comment: José Miguel 16. Skin intact. Current %PO Good (75-100%) Estimated Nutritional Goals BEE in Kcals: Using Current wt Calories/Kcals/Kg CBW 134.3lb/61kg Kcals Calculated 1525-1830kcal (25-30kcal/kg) Protein: Using Current wt Protein Calculated 61g (1g/kg) Fluid: ml 1525-1830ml (1ml/kcal) Nutritional Problem 1. Problem Problem No nutritional problem at this time. Intervention/Recommendation Comments 1. Continue with cureent diet order. Avg PO intake is adequate. 2. Recommend Boost TID per pt' s request to maintain/gain weight and muscle, pt is overall thin, RD agreeable to plan. Expected Outcomes/Goals Expected Outcomes/Goals 1. PO intake continue to meet at least 75% of estimated nutritional needs.
[2016-12-26] MEDS: Dextromethorphan/Quinidine 20mg/10mg Cap PO SCH ×2 (09:25→21:00)
[2016-12-26] MEDS: Multivitamin w/ Minerals Tab PO SCH (09:26)
--- NOTE | 2016-12-26 13:35 | Internal Medicine Prog Note ---
Internal Medicine Subjective - Subjective Service Date: 12/26/16 Patient is:: awake, talking, agitated, confused Per staff patient has:: no adverse event, agitated, confused, tolerating meds Internal Medicine Objective - Results Result Diagrams: 12/11/16 00:10 12/11/16 00:10 Recent Labs: Laboratory Last Values WBC 8.1 Th/cmm (4.8-10.8) 12/11/16 00:10 RBC 4.58 Mil/cmm (3.80-5.80) 12/11/16 00:10 Hgb 13.7 gm/dL (12.6-17.4) 12/11/16 00:10 Hct 41.8 % (39.0-49.0) 12/11/16 00:10 MCV 91.2 fl (80-99) 12/11/16 00:10 MCH 29.9 pg (27.0-31.0) 12/11/16 00:10 MCHC Differential 32.8 pg (28.0-36.0) 12/11/16 00:10 RDW 13.0 % (11.5-20.0) 12/11/16 00:10 Plt Count 272 Th/cmm (150-400) 12/11/16 00:10 MPV 6.5 fl 12/11/16 00:10 Neutrophils % 58.5 % (40.0-80.0) 12/11/16 00:10 Lymphocytes % 27.6 % (20.0-50.0) 12/11/16 00:10 Monocytes % 8.4 % (2.0-10.0) 12/11/16 00:10 Eosinophils % 1.6 % (0.0-5.0) 12/11/16 00:10 Basophils % 3.9 % (0.0-2.0) H 12/11/16 00:10 PT 9.9 SECONDS (9.5-11.5) 12/11/16 00:10 INR 0.95 (0.5-1.4) 12/11/16 00:10 PTT (Actin FS) 24.7 SECONDS (26.0-38.0) L 12/11/16 00:10 Sodium 129 mEq/L (136-145) L 12/11/16 00:10 Potassium 4.3 mEq/L (3.5-5.1) 12/11/16 00:10 Chloride 99 mEq/L (98-107) 12/11/16 00:10 Carbon Dioxide 29.2 mEq/L (21.0-31.0) 12/11/16 00:10 Anion Gap 5.1 (7.0-16.0) L 12/11/16 00:10 BUN 12 mg/dL (7-25) 12/11/16 00:10 Creatinine 0.4 mg/dL (0.7-1.3) L 12/11/16 00:10 Est GFR ( Amer) > 60.0 ml/min (>90) 12/11/16 00:10 Est GFR (Non-Af Amer) > 60.0 ml/min 12/11/16 00:10 BUN/Creatinine Ratio 30.0 12/11/16 00:10 Glucose 97 mg/dL (70-105) 12/11/16 00:10 Calcium 9.1 mg/dL (8.6-10.3) 12/11/16 00:10 Total Bilirubin 0.5 mg/dL (0.3-1.0) 12/11/16 00:10 AST 15 U/L (13-39) 12/11/16 00:10 ALT 10 U/L (7-52) 12/11/16 00:10 Alkaline Phosphatase 215 U/L (34-104) H 12/11/16 00:10 Troponin I < 0.01 ng/mL (0.01-0.05) L 12/11/16 00:10 Total Protein 6.8 gm/dL (6.0-8.3) 12/11/16 00:10 Albumin 3.9 gm/dL (4.2-5.5) L 12/11/16 00:10 Globulin 2.9 gm/dL 12/11/16 00:10 Albumin/Globulin Ratio 1.3 (1.0-1.8) 12/11/16 00:10 Triglycerides 84 mg/dL (<150) 12/11/16 00:10 Cholesterol 174 mg/dL (<200) 12/11/16 00:10 LDL Cholesterol Direct 101 mg/dL (75-193) 12/11/16 00:10 HDL Cholesterol 61 mg/dL (23-92) 12/11/16 00:10 TSH 0.85 uIU/ml (0.34-5.60) 12/11/16 00:15 RPR NONREACTIVE (NONREACTIVE) 12/11/16 00:10 - Physical Exam Vitals and I&O: Vital Signs Temp 97.6 F 12/25/16 06:01 Pulse 65 12/25/16 06:01 Resp 18 12/25/16 06:01 BP 143/74 12/25/16 06:01 Pulse Ox 96 12/25/16 06:01 Intake & Output 12/25/16 12/26/16 12/26/16 18:59 06:59 18:59 Intake Total 300 Balance 300 Intake: Oral 300 Other: # Voids 3 # Bowel Movements 0 Active Medications: Current Medications Acetaminophen (Tylenol) 650 mg PO Q4HR PRN PRN Reason: Pain or Fever >101 Stop: 02/09/17 13:34 Last Admin: 12/26/16 09:43 Dose: 650 mg Al Hydrox/Mg Hydrox/Simethicone (Maalox) 30 ml PO Q4HR PRN PRN Reason: GI DISTRESS Stop: 02/09/17 13:34 Last Admin: 12/24/16 09:21 Dose: 30 ml Bisacodyl (Dulcolax 10 Mg Supp) 10 mg RC DAILY PRN PRN Reason: Constipation Stop: 02/09/17 13:34 Dextromethorphan/Quinidine (Nuedexta 20mg-10mg) 1 cap PO Q12HR ELDA Stop: 02/09/17 20:59 Last Admin: 12/26/16 09:25 Dose: 1 cap Docusate Sodium (Colace) 100 mg PO DAILY ELDA Stop: 02/10/17 08:59 Last Admin: 12/26/16 09:26 Dose: Not Given Haloperidol (Haldol) 2 mg PO BID ELDA PRN Reason: Protocol Stop: 02/19/17 16:59 Last Admin: 12/26/16 09:25 Dose: 2 mg Haloperidol Decanoate (Haldol Dec) 25 mg IM QMONTH ELDA PRN Reason: Protocol Stop: 02/22/17 18:29 Lorazepam (Ativan) 0.5 mg PO Q6HR PRN; Protocol PRN Reason: Agitation Stop: 02/09/17 13:34 Last Admin: 12/26/16 09:43 Dose: 0.5 mg Magnesium Hydroxide (Milk Of Magnesia) 30 ml PO DAILY PRN PRN Reason: Constipation Stop: 02/09/17 13:34 Last Admin: 12/23/16 09:09 Dose: 30 ml Zolpidem Tartrate (Ambien) 5 mg PO HS PRN PRN Reason: Insomnia Stop: 02/09/17 13:34 Last Admin: 12/22/16 20:43 Dose: 5 mg General: alert, NAD HEENT: NC/AT, PERRLA Neck: Supple Lungs: CTAB Cardiovascular: RRR, Normal S1, Normal S2, without murmur Abdomen: soft, non-tender, non-distended, positive bowel sound Extremities: clear Neurological: no change - Procedures Procedures: Procedures Procedure Code Date OTHER GROUP THERAPY 94.44 10/28/14 Internal Medicine Assmt/Plan - Assessment Assessment: DEMENTIA INSOMNIA OA GASTRITIS SCHIZOPHRENIA AHD CAD HTN - Plan Plan: FALL PRECAUTIONS MONITOR BP WILL MONITOR PATIENT CLOSELY. Nutritional Asmnt/Malnutr-PDOC - Dietary Evaluation Malnutrition Findings (Please click <Entered> for more info): Nutritional Asmnt/Malnutrition Start: 12/14/16 14: 08 Text: Status: Complete Freq: Document 12/14/16 14:24 GSUN (Rec: 12/14/16 14:35 GSUN [email or web address]) Nutritional Asmnt/Malnutrition Patient General Information Nutritional Screening Moderate Risk Screening Diagnosis Bipolar Pertinent Medical Hx/Surgical Hx Dementia, insomnia, OA, gastritis, schizophrenia, AHD, CAD, HTN Subjective Information 66 year old male from SNF. Pt was pleasant, alert, talkative , slurred speech slightly difficult to understand. Pt is bedridden, appeared overall thin, minimal fat stores, muscle present, no severe wasting noted. CBW 134.3lb via bedscale, pt weighed 130lb during 10/30 adm this year. Pt is edentulous, no difficulties with chopped. Avg PO intake 92% of meals since adm, meeting nutritional needs. Pt requested for Boost TID wanting to gain/maintain weight, RD agreeable to plan. Current Diet Order/ Nutrition Support [facility] soft chopped. Pertinent Medications Dulcolax, Colace, Haldol, MOM Pertinent Labs Reviewed. Nutritional Hx/Data Height 5 ft 5 in Height (Calculated Centimeters) 165.1 Current Weight (lbs) 134 lb 4.8 oz Weight (Calculated Kilograms) 60.9 Weight (Calculated Grams) 59630.5 [place] Body Weight 136 Weight Status Approriate GI Symptoms Food Allergies No Cultural/Ethnic/Sikhism Belief Pt likes salad, flores side up eggs. Skin Integrity/Comment: José Miguel 16. Skin intact. Current %PO Good (75-100%) Estimated Nutritional Goals BEE in Kcals: Using Current wt Calories/Kcals/Kg CBW 134.3lb/61kg Kcals Calculated 1525-1830kcal (25-30kcal/kg) Protein: Using Current wt Protein Calculated 61g (1g/kg) Fluid: ml 1525-1830ml (1ml/kcal) Nutritional Problem 1. Problem Problem No nutritional problem at this time. Intervention/Recommendation Comments 1. Continue with cureent diet order. Avg PO intake is adequate. 2. Recommend Boost TID per pt' s request to maintain/gain weight and muscle, pt is overall thin, RD agreeable to plan. Expected Outcomes/Goals Expected Outcomes/Goals 1. PO intake continue to meet at least 75% of estimated nutritional needs.
--- NOTE | 2016-12-26 23:03 | Progress Notes ---
DATE: 12/26/2016 PSYCHIATRIC PROGRESS NOTE TIME PATIENT SEEN: 5:00 p.m. SUBJECTIVE: Staff was spoken to. The patient is interviewed. Mood is noted to be anxious. The patient is isolative and withdrawn. The patient's coping skills are noted to be poor. The patient has been screaming and yelling, but the agitated behavior has been coming down. The patient has been coping well at this time, but the conservator wants the patient to be in a locked facility in view of his aggressive behavior. So far the placement has not been able to be secured. ASSESSMENT: The patient's impulsivity is resolving. PLAN: To continue the patient with the supportive therapy and I encouraged the patient to verbalize the concerns rather than to act out. JOB# [id number]
[2016-12-27] MEDS: Dextromethorphan/Quinidine 20mg/10mg Cap PO SCH ×2 (09:41→21:17)
[2016-12-27] MEDS: Multivitamin w/ Minerals Tab PO SCH (09:47)
--- NOTE | 2016-12-27 11:42 | Progress Notes ---
DATE: 12/27/2016 TIME SEEN: 10 a.m. SUBJECTIVE: Staff has spoken to the patient. The patient is interviewed. Mood is noted to be dysphoric. Coping skills are noted to be still poor. The patient has been awaiting placement. Insight and judgment at this time noted to be still impaired. Impulse control seems to be improving. The patient is now screaming and yelling, but the patient is awaiting placement. [facility]# [id number]
--- NOTE | 2016-12-27 12:52 | Internal Medicine Prog Note ---
Internal Medicine Subjective - Subjective Service Date: 12/27/16 Patient is:: awake, talking, agitated, confused Per staff patient has:: no adverse event, agitated, confused, tolerating meds Internal Medicine Objective - Results Result Diagrams: 12/11/16 00:10 12/11/16 00:10 Recent Labs: Laboratory Last Values WBC 8.1 Th/cmm (4.8-10.8) 12/11/16 00:10 RBC 4.58 Mil/cmm (3.80-5.80) 12/11/16 00:10 Hgb 13.7 gm/dL (12.6-17.4) 12/11/16 00:10 Hct 41.8 % (39.0-49.0) 12/11/16 00:10 MCV 91.2 fl (80-99) 12/11/16 00:10 MCH 29.9 pg (27.0-31.0) 12/11/16 00:10 MCHC Differential 32.8 pg (28.0-36.0) 12/11/16 00:10 RDW 13.0 % (11.5-20.0) 12/11/16 00:10 Plt Count 272 Th/cmm (150-400) 12/11/16 00:10 MPV 6.5 fl 12/11/16 00:10 Neutrophils % 58.5 % (40.0-80.0) 12/11/16 00:10 Lymphocytes % 27.6 % (20.0-50.0) 12/11/16 00:10 Monocytes % 8.4 % (2.0-10.0) 12/11/16 00:10 Eosinophils % 1.6 % (0.0-5.0) 12/11/16 00:10 Basophils % 3.9 % (0.0-2.0) H 12/11/16 00:10 PT 9.9 SECONDS (9.5-11.5) 12/11/16 00:10 INR 0.95 (0.5-1.4) 12/11/16 00:10 PTT (Actin FS) 24.7 SECONDS (26.0-38.0) L 12/11/16 00:10 Sodium 129 mEq/L (136-145) L 12/11/16 00:10 Potassium 4.3 mEq/L (3.5-5.1) 12/11/16 00:10 Chloride 99 mEq/L (98-107) 12/11/16 00:10 Carbon Dioxide 29.2 mEq/L (21.0-31.0) 12/11/16 00:10 Anion Gap 5.1 (7.0-16.0) L 12/11/16 00:10 BUN 12 mg/dL (7-25) 12/11/16 00:10 Creatinine 0.4 mg/dL (0.7-1.3) L 12/11/16 00:10 Est GFR ( Amer) > 60.0 ml/min (>90) 12/11/16 00:10 Est GFR (Non-Af Amer) > 60.0 ml/min 12/11/16 00:10 BUN/Creatinine Ratio 30.0 12/11/16 00:10 Glucose 97 mg/dL (70-105) 12/11/16 00:10 Calcium 9.1 mg/dL (8.6-10.3) 12/11/16 00:10 Total Bilirubin 0.5 mg/dL (0.3-1.0) 12/11/16 00:10 AST 15 U/L (13-39) 12/11/16 00:10 ALT 10 U/L (7-52) 12/11/16 00:10 Alkaline Phosphatase 215 U/L (34-104) H 12/11/16 00:10 Troponin I < 0.01 ng/mL (0.01-0.05) L 12/11/16 00:10 Total Protein 6.8 gm/dL (6.0-8.3) 12/11/16 00:10 Albumin 3.9 gm/dL (4.2-5.5) L 12/11/16 00:10 Globulin 2.9 gm/dL 12/11/16 00:10 Albumin/Globulin Ratio 1.3 (1.0-1.8) 12/11/16 00:10 Triglycerides 84 mg/dL (<150) 12/11/16 00:10 Cholesterol 174 mg/dL (<200) 12/11/16 00:10 LDL Cholesterol Direct 101 mg/dL (75-193) 12/11/16 00:10 HDL Cholesterol 61 mg/dL (23-92) 12/11/16 00:10 TSH 0.85 uIU/ml (0.34-5.60) 12/11/16 00:15 RPR NONREACTIVE (NONREACTIVE) 12/11/16 00:10 - Physical Exam Vitals and I&O: Vital Signs Temp 97.8 F 12/26/16 20:00 Pulse 79 12/26/16 20:00 Resp 18 12/26/16 20:00 BP 132/69 12/26/16 20:00 Pulse Ox 96 12/26/16 20:00 Intake & Output 12/26/16 12/27/16 12/27/16 18:59 06:59 18:59 Intake Total 1020 Balance 1020 Intake: Oral 1020 Other: # Voids 3 # Bowel Movements 0 Active Medications: Current Medications Acetaminophen (Tylenol) 650 mg PO Q4HR PRN PRN Reason: Pain or Fever >101 Stop: 02/09/17 13:34 Last Admin: 12/27/16 09:41 Dose: 650 mg Al Hydrox/Mg Hydrox/Simethicone (Maalox) 30 ml PO Q4HR PRN PRN Reason: GI DISTRESS Stop: 02/09/17 13:34 Last Admin: 12/24/16 09:21 Dose: 30 ml Bisacodyl (Dulcolax 10 Mg Supp) 10 mg RC DAILY PRN PRN Reason: Constipation Stop: 02/09/17 13:34 Dextromethorphan/Quinidine (Nuedexta 20mg-10mg) 1 cap PO Q12HR ELDA Stop: 02/09/17 20:59 Last Admin: 12/27/16 09:41 Dose: 1 cap Docusate Sodium (Colace) 100 mg PO DAILY [facility] Stop: 02/10/17 08:59 Last Admin: 12/27/16 09:47 Dose: Not Given Haloperidol (Haldol) 2 mg PO BID ELDA PRN Reason: Protocol Stop: 02/19/17 16:59 Last Admin: 12/27/16 09:41 Dose: 2 mg Haloperidol Decanoate (Haldol Dec) 25 mg IM QMONTH ELDA PRN Reason: Protocol Stop: 02/22/17 18:29 Lorazepam (Ativan) 0.5 mg PO Q6HR PRN; Protocol PRN Reason: Agitation Stop: 02/09/17 13:34 Last Admin: 12/27/16 09:42 Dose: 0.5 mg Magnesium Hydroxide (Milk Of Magnesia) 30 ml PO DAILY PRN PRN Reason: Constipation Stop: 02/09/17 13:34 Last Admin: 12/23/16 09:09 Dose: 30 ml Zolpidem Tartrate (Ambien) 5 mg PO HS PRN PRN Reason: Insomnia Stop: 02/09/17 13:34 Last Admin: 12/22/16 20:43 Dose: 5 mg General: alert, NAD HEENT: NC/AT, PERRLA Neck: Supple Lungs: CTAB Cardiovascular: RRR, Normal S1, Normal S2, without murmur Abdomen: soft, non-tender, non-distended, positive bowel sound Extremities: clear Neurological: no change - Procedures Procedures: Procedures Procedure Code Date OTHER GROUP THERAPY 94.44 10/28/14 Internal Medicine Assmt/Plan - Assessment Assessment: DEMENTIA INSOMNIA OA GASTRITIS SCHIZOPHRENIA AHD CAD HTN - Plan Plan: FALL PRECAUTIONS MONITOR BP WILL MONITOR PATIENT CLOSELY. Nutritional Asmnt/Malnutr-PDOC - Dietary Evaluation Malnutrition Findings (Please click <Entered> for more info): Nutritional Asmnt/Malnutrition Start: 12/14/16 14: 08 Text: Status: Complete Freq: Document 12/14/16 14:24 GSUN (Rec: 12/14/16 14:35 [email or web address] Nutritional Asmnt/Malnutrition Patient General Information Nutritional Screening Moderate Risk Screening Diagnosis Bipolar Pertinent Medical Hx/Surgical Hx Dementia, insomnia, OA, gastritis, schizophrenia, AHD, CAD, HTN Subjective Information 66 year old male from SNF. Pt was pleasant, alert, talkative , slurred speech slightly difficult to understand. Pt is bedridden, appeared overall thin, minimal fat stores, muscle present, no severe wasting noted. CBW 134.3lb via bedscale, pt weighed 130lb during 10/30 adm this year. Pt is edentulous, no difficulties with chopped. Avg PO intake 92% of meals since adm, meeting nutritional needs. Pt requested for Boost TID wanting to gain/maintain weight, RD agreeable to plan. Current Diet Order/ Nutrition Support [facility] soft chopped. Pertinent Medications Dulcolax, Colace, Haldol, MOM Pertinent Labs Reviewed. Nutritional Hx/Data Height 5 ft 5 in Height (Calculated Centimeters) 165.1 Current Weight (lbs) 134 lb 4.8 oz Weight (Calculated Kilograms) 60.9 Weight (Calculated Grams) 73979.5 [place] Body Weight 136 Weight Status Approriate GI Symptoms Food Allergies No Cultural/Ethnic/Synagogue Belief Pt likes salad, flores side up eggs. Skin Integrity/Comment: José Miguel 16. Skin intact. Current %PO Good (75-100%) Estimated Nutritional Goals BEE in Kcals: Using Current wt Calories/Kcals/Kg CBW 134.3lb/61kg Kcals Calculated 1525-1830kcal (25-30kcal/kg) Protein: Using Current wt Protein Calculated 61g (1g/kg) Fluid: ml 1525-1830ml (1ml/kcal) Nutritional Problem 1. Problem Problem No nutritional problem at this time. Intervention/Recommendation Comments 1. Continue with cureent diet order. Avg PO intake is adequate. 2. Recommend Boost TID per pt' s request to maintain/gain weight and muscle, pt is overall thin, RD agreeable to plan. Expected Outcomes/Goals Expected Outcomes/Goals 1. PO intake continue to meet at least 75% of estimated nutritional needs.
[2016-12-28] MEDS: Dextromethorphan/Quinidine 20mg/10mg Cap PO SCH (08:23)
[2016-12-28] MEDS: Multivitamin w/ Minerals Tab PO SCH (08:25)
--- NOTE | 2016-12-28 12:19 | Internal Medicine Prog Note ---
Internal Medicine Subjective - Subjective Service Date: 12/28/16 Patient is:: awake, talking, agitated, confused Per staff patient has:: no adverse event, agitated, confused, tolerating meds Internal Medicine Objective - Results Result Diagrams: 12/11/16 00:10 12/11/16 00:10 Recent Labs: Laboratory Last Values WBC 8.1 Th/cmm (4.8-10.8) 12/11/16 00:10 RBC 4.58 Mil/cmm (3.80-5.80) 12/11/16 00:10 Hgb 13.7 gm/dL (12.6-17.4) 12/11/16 00:10 Hct 41.8 % (39.0-49.0) 12/11/16 00:10 MCV 91.2 fl (80-99) 12/11/16 00:10 MCH 29.9 pg (27.0-31.0) 12/11/16 00:10 MCHC Differential 32.8 pg (28.0-36.0) 12/11/16 00:10 RDW 13.0 % (11.5-20.0) 12/11/16 00:10 Plt Count 272 Th/cmm (150-400) 12/11/16 00:10 MPV 6.5 fl 12/11/16 00:10 Neutrophils % 58.5 % (40.0-80.0) 12/11/16 00:10 Lymphocytes % 27.6 % (20.0-50.0) 12/11/16 00:10 Monocytes % 8.4 % (2.0-10.0) 12/11/16 00:10 Eosinophils % 1.6 % (0.0-5.0) 12/11/16 00:10 Basophils % 3.9 % (0.0-2.0) H 12/11/16 00:10 PT 9.9 SECONDS (9.5-11.5) 12/11/16 00:10 INR 0.95 (0.5-1.4) 12/11/16 00:10 PTT (Actin FS) 24.7 SECONDS (26.0-38.0) L 12/11/16 00:10 Sodium 129 mEq/L (136-145) L 12/11/16 00:10 Potassium 4.3 mEq/L (3.5-5.1) 12/11/16 00:10 Chloride 99 mEq/L (98-107) 12/11/16 00:10 Carbon Dioxide 29.2 mEq/L (21.0-31.0) 12/11/16 00:10 Anion Gap 5.1 (7.0-16.0) L 12/11/16 00:10 BUN 12 mg/dL (7-25) 12/11/16 00:10 Creatinine 0.4 mg/dL (0.7-1.3) L 12/11/16 00:10 Est GFR ( Amer) > 60.0 ml/min (>90) 12/11/16 00:10 Est GFR (Non-Af Amer) > 60.0 ml/min 12/11/16 00:10 BUN/Creatinine Ratio 30.0 12/11/16 00:10 Glucose 97 mg/dL (70-105) 12/11/16 00:10 Calcium 9.1 mg/dL (8.6-10.3) 12/11/16 00:10 Total Bilirubin 0.5 mg/dL (0.3-1.0) 12/11/16 00:10 AST 15 U/L (13-39) 12/11/16 00:10 ALT 10 U/L (7-52) 12/11/16 00:10 Alkaline Phosphatase 215 U/L (34-104) H 12/11/16 00:10 Troponin I < 0.01 ng/mL (0.01-0.05) L 12/11/16 00:10 Total Protein 6.8 gm/dL (6.0-8.3) 12/11/16 00:10 Albumin 3.9 gm/dL (4.2-5.5) L 12/11/16 00:10 Globulin 2.9 gm/dL 12/11/16 00:10 Albumin/Globulin Ratio 1.3 (1.0-1.8) 12/11/16 00:10 Triglycerides 84 mg/dL (<150) 12/11/16 00:10 Cholesterol 174 mg/dL (<200) 12/11/16 00:10 LDL Cholesterol Direct 101 mg/dL (75-193) 12/11/16 00:10 HDL Cholesterol 61 mg/dL (23-92) 12/11/16 00:10 TSH 0.85 uIU/ml (0.34-5.60) 12/11/16 00:15 RPR NONREACTIVE (NONREACTIVE) 12/11/16 00:10 - Physical Exam Vitals and I&O: Vital Signs Temp 97.9 F 12/28/16 09:18 Pulse 71 12/28/16 09:18 Resp 19 12/28/16 09:18 BP 122/76 12/28/16 09:18 Pulse Ox 96 12/28/16 09:18 Intake & Output 12/27/16 12/28/16 12/28/16 18:59 06:59 18:59 Intake Total 1200 240 Balance 1200 240 Intake: Oral 1200 240 Other: # Voids 2 # Bowel Movements 0 Active Medications: Current Medications Acetaminophen (Tylenol) 650 mg PO Q4HR PRN PRN Reason: Pain or Fever >101 Stop: 02/09/17 13:34 Last Admin: 12/28/16 08:53 Dose: 650 mg Al Hydrox/Mg Hydrox/Simethicone (Maalox) 30 ml PO Q4HR PRN PRN Reason: GI DISTRESS Stop: 02/09/17 13:34 Last Admin: 12/24/16 09:21 Dose: 30 ml Bisacodyl (Dulcolax 10 Mg Supp) 10 mg RC DAILY PRN PRN Reason: Constipation Stop: 02/09/17 13:34 Dextromethorphan/Quinidine (Nuedexta 20mg-10mg) 1 cap PO Q12HR ELDA Stop: 02/09/17 20:59 Last Admin: 12/28/16 08:23 Dose: 1 cap Docusate Sodium (Colace) 100 mg PO DAILY [facility] Stop: 02/10/17 08:59 Last Admin: 12/28/16 08:24 Dose: 100 mg Haloperidol (Haldol) 2 mg PO BID ELDA PRN Reason: Protocol Stop: 02/19/17 16:59 Last Admin: 12/28/16 08:24 Dose: 2 mg Haloperidol Decanoate (Haldol Dec) 25 mg IM QMONTH ELDA PRN Reason: Protocol Stop: 02/22/17 18:29 Last Admin: 12/27/16 18:35 Dose: 25 mg Lorazepam (Ativan) 0.5 mg PO Q6HR PRN; Protocol PRN Reason: Agitation Stop: 02/09/17 13:34 Last Admin: 12/27/16 09:42 Dose: 0.5 mg Magnesium Hydroxide (Milk Of Magnesia) 30 ml PO DAILY PRN PRN Reason: Constipation Stop: 02/09/17 13:34 Last Admin: 12/23/16 09:09 Dose: 30 ml Zolpidem Tartrate (Ambien) 5 mg PO HS PRN PRN Reason: Insomnia Stop: 02/09/17 13:34 Last Admin: 12/22/16 20:43 Dose: 5 mg General: alert, NAD HEENT: NC/AT, PERRLA Neck: Supple Lungs: CTAB Cardiovascular: RRR, Normal S1, Normal S2, without murmur Abdomen: soft, non-tender, non-distended, positive bowel sound Extremities: clear Neurological: no change - Procedures Procedures: Procedures Procedure Code Date OTHER GROUP THERAPY 94.44 10/28/14 Internal Medicine Assmt/Plan - Assessment Assessment: DEMENTIA INSOMNIA OA GASTRITIS SCHIZOPHRENIA AHD CAD HTN - Plan Plan: FALL PRECAUTIONS MONITOR BP WILL MONITOR PATIENT CLOSELY. Nutritional Asmnt/Malnutr-PDOC - Dietary Evaluation Malnutrition Findings (Please click <Entered> for more info): Nutritional Asmnt/Malnutrition Start: 12/14/16 14: 08 Text: Status: Complete Freq: Document 12/14/16 14:24 GSUN (Rec: 12/14/16 14:35 [email or web address] [email or web address]) Nutritional Asmnt/Malnutrition Patient General Information Nutritional Screening Moderate Risk Screening Diagnosis Bipolar Pertinent Medical Hx/Surgical Hx Dementia, insomnia, OA, gastritis, schizophrenia, AHD, CAD, HTN Subjective Information 66 year old male from SNF. Pt was pleasant, alert, talkative , slurred speech slightly difficult to understand. Pt is bedridden, appeared overall thin, minimal fat stores, muscle present, no severe wasting noted. CBW 134.3lb via bedscale, pt weighed 130lb during 10/30 adm this year. Pt is edentulous, no difficulties with chopped. Avg PO intake 92% of meals since adm, meeting nutritional needs. Pt requested for Boost TID wanting to gain/maintain weight, RD agreeable to plan. Current Diet Order/ Nutrition Support [facility] soft chopped. Pertinent Medications Dulcolax, Colace, Haldol, MOM Pertinent Labs Reviewed. Nutritional Hx/Data Height 5 ft 5 in Height (Calculated Centimeters) 165.1 Current Weight (lbs) 134 lb 4.8 oz Weight (Calculated Kilograms) 60.9 Weight (Calculated Grams) 63493.5 Hooks Body Weight 136 Weight Status Approriate GI Symptoms Food Allergies No Cultural/Ethnic/Cheondoism Belief Pt likes salad, flores side up eggs. Skin Integrity/Comment: José Miguel 16. Skin intact. Current %PO Good (75-100%) Estimated Nutritional Goals BEE in Kcals: Using Current wt Calories/Kcals/Kg CBW 134.3lb/61kg Kcals Calculated 1525-1830kcal (25-30kcal/kg) Protein: Using Current wt Protein Calculated 61g (1g/kg) Fluid: ml 1525-1830ml (1ml/kcal) Nutritional Problem 1. Problem Problem No nutritional problem at this time. Intervention/Recommendation Comments 1. Continue with cureent diet order. Avg PO intake is adequate. 2. Recommend Boost TID per pt' s request to maintain/gain weight and muscle, pt is overall thin, RD agreeable to plan. Expected Outcomes/Goals Expected Outcomes/Goals 1. PO intake continue to meet at least 75% of estimated nutritional needs.
== END 2016-12-28 13:30 | DRG 885 ==
LOC: ER 22:55 → GERO 12-11 01:10
PROVIDERS: ADMIT Psychiatry & Neurology Psychiatry; ATTEND Psychiatry & Neurology Psychiatry
DX: F29 Unspecified psychosis not due to a substance or known physiological condition (principal); F03.90 Unspecified dementia, unspecified severity, without behavioral disturbance, psychotic disturbance, mood disturbance, and anxiety; G82.20 Paraplegia, unspecified; J44.9 Chronic obstructive pulmonary disease, unspecified; F20.9 Schizophrenia, unspecified; G47.00 Insomnia, unspecified; M19.90 Unspecified osteoarthritis, unspecified site; K29.70 Gastritis, unspecified, without bleeding; I25.10 Atherosclerotic heart disease of native coronary artery without angina pectoris; E11.9 Type 2 diabetes mellitus without complications; I10 Essential (primary) hypertension; R45.87 Impulsiveness; F31.9 Bipolar disorder, unspecified; Z86.73 Personal history of transient ischemic attack (TIA), and cerebral infarction without residual deficits; Z91.14 Patient's other noncompliance with medication regimen
CPT/HCPCS: 36415-UA; 71010-TC; 80053-TC; 80061-TC; 84443-TC; 84484-TC; 85025-TC; 85610-TC; 85730-TC; 86592-TC; 93005; J1200; J1630; J1631; J2060; Z7610